=== PATIENT | male | born 1930 | race Caucasian/White ===

== ENCOUNTER 2018-01-23 19:25 | Inpatient (IN) | payer BC, MEDICARE ==
[2018-01-23] MEDS ORDERED: ACETAMINOPHEN TAB 325 MG TAB PO STA (19:35)
[2018-01-23] MEDS ORDERED: ACETAMINOPHEN IV (For NPO) 1,000 MG in EMPTY BAG 1 BAG IVPB ONE (19:45)
[2018-01-23 19:49] LABS: Basophils # (A) 0.1 k/uL (0-0.2); Basophils % (A) 0 %; Eosinophils # (A) 0.2 k/uL (0-0.7); Eosinophils % (A) 1 %; HCT 29.5 % (39.0-53.0); Lymphocytes # (A) 0.8 k/uL (1.0-4.8); Lymphocytes % (A) 5 %; MCH 31.1 pg (25.0-35.0); MCHC 33.9 g/dL (31.0-37.0); MCV 91.7 fL (80.0-100.0); Mean Platelet Volume 8.3; Monocytes # (A) 0.7 k/uL (0-1.0); Monocytes % (A) 4 %; Neutrophils # (A) 13.8 k/uL (1.3-7.7); Neutrophils % (A) 89 %; Platelet Count 266 k/uL (150-450); RBC 3.22 m/uL (4.30-5.90); RDW 15.9 % (11.5-15.5); WBC 15.5 k/uL (3.8-10.6)
--- NOTE | 2018-01-23 19:53 | ED ---
General Adult HPI - General Chief complaint: Weakness Stated complaint: weakness Time Seen by Provider: 01/23/18 19:35 Source: patient, EMS, RN notes reviewed Mode of arrival: ambulatory Limitations: no limitations - History of Present Illness Initial comments: 87 -year-old male presents for evaluation of nausea vomiting and generalized weakness. Patient states that throughout the day today he developed weakness and difficulty with ambulating secondary to his generalized weakness. He has had a cough over the past several days. He also reports 45 episodes of vomiting and dry heaving. No blood. No abdominal pain. Patient denies chest pain. Denies sore throat. He has had some rhinorrhea. No diarrhea. - Related Data Home Medications Medication Instructions Recorded Confirmed Ergocalciferol (Vitamin D2) 50,000 unit PO Q30D 08/27/16 08/27/16 [Drisdol] Insulin Aspart [NovoLOG See Protocol SQ ACHS 08/27/16 08/27/16 (formulary)] Vitamin E (Dl,Tocopheryl Acet) 400 unit PO DAILY 08/27/16 08/27/16 [Vitamin E] Zolpidem [Ambien] 5 mg PO HS PRN 08/27/16 08/27/16 rOPINIRole HCL [Requip] 0.25 mg PO HS 08/27/16 08/27/16 Previous Rx's Medication Instructions Recorded Acetaminophen Tab [Tylenol] 650 mg PO Q4HR PRN #0 tab 09/01/16 Albuterol Nebulized [Ventolin 2.5 mg INHALATION RT-QID PRN #0 09/01/16 Nebulized] nebu Apixaban [Eliquis] 2.5 mg PO BID #60 tablet 09/01/16 Aspirin 81 mg PO DAILY chew 09/01/16 Atenolol [Tenormin] 25 mg PO DAILY #30 tab 09/01/16 Atorvastatin [Lipitor] 40 mg PO DAILY tab 09/01/16 Insulin Glargine,Hum.rec.anlog 30 units SQ DAILY #1 insuln.pen 09/01/16 [Lantus Solostar] Nitroglycerin Sl Tabs [Nitrostat] 0.4 mg SUBLINGUAL Q5M PRN #0 tab 09/01/16 Allergies Allergy/AdvReac Type Severity Reaction Status Date / Time No Known Allergies Allergy Verified 08/27/16 14:34 Review of Systems ROS Statement: Those systems with pertinent positive or pertinent negative responses have been documented in the HPI. ROS Other: All systems not noted in ROS Statement are negative. Past Medical History Past Medical History: Diabetes Mellitus, Hypertension, Myocardial Infarction ([place] ), Renal Disease Last Myocardial Infarction Date:: unknown History of Any Multi-Drug Resistant Organisms: None Reported Additional Past Surgical History / Comment(s): Hip replacement. , Past Psychological History: No Psychological Hx Reported Smoking Status: Never smoker Past Alcohol Use History: None Reported Past Drug Use History: None Reported General Exam Limitations: no limitations General appearance: alert, in no apparent distress Head exam: Present: atraumatic, normocephalic Eye exam: Present: normal appearance ENT exam: Present: mucous membranes dry Neck exam: Present: normal inspection. Absent: tenderness, meningismus Respiratory exam: Present: rhonchi. Absent: respiratory distress Cardiovascular Exam: Present: regular rate, normal rhythm GI/Abdominal exam: Present: soft. Absent: distended, tenderness exam: Present: normal inspection. Absent: scrotal swelling Extremities exam: Present: normal inspection, normal capillary refill. Absent: pedal edema Neurological exam: Present: alert, oriented X3, CN II-XII intact. Absent: motor sensory deficit Psychiatric exam: Present: normal affect, normal mood Skin exam: Present: warm, dry, intact. Absent: cyanosis, diaphoretic Course Vital Signs 01/23/18 01/23/18 19:29 20:03 Temperature 102.1 F H Pulse Rate 85 80 Respiratory 18 18 Rate Blood Pressure 132/60 O2 Sat by Pulse 98 95 Oximetry EKG Findings - EKG Comments: EKG Findings:: Sinus rhythm with PAC, ventricular rate of 83, WI interval 150, QRS duration 78, QTC [address] segment elevation or depression Medical Decision Making - Medical Decision Making 87-year-old male with fever and weakness. Patient has had mild cough and several episodes of vomiting otherwise no complaints. No rash present on exam. No abdominal pain or tenderness. Normal Gen. exam. Chest x-ray negative for focal pneumonia. Urinalysis is clear. Influenza negative. Laboratory studies are consistent with infection or blood cell count elevated 15.5, hemoglobin 10 with no baseline for comparison. Creatinine 1.3. No source of fever or leukocytosis identified on physical exam or initial testing. Given the patient' s age and high fever with leukocytosis, her cultures and urine cultures are obtained. He will be given a dose of broad-spectrum antibiotics. There is concern for bacteremia or occult infection. Case discussed with Dr. Casas who will accept admission. - Lab Data Result diagrams: 01/23/18 19:34 01/23/18 19:34 Lab Results 01/23/18 01/23/18 01/23/18 Range/Units 19:34 19:34 19:34 WBC 15.5 H (3.8-10.6) k/uL RBC 3.22 L (4.30-5.90) m/uL Hgb 10.0 L (13.0-17.5) gm/dL Hct 29.5 L (39.0-53.0) % MCV 91.7 (80.0-100.0) fL MCH 31.1 (25.0-35.0) pg MCHC 33.9 (31.0-37.0) g/dL RDW 15.9 H (11.5-15.5) % Plt Count 266 (150-450) k/uL Neutrophils % 89 % Lymphocytes % 5 % Monocytes % 4 % Eosinophils % 1 % Basophils % 0 % Neutrophils # 13.8 H (1.3-7.7) k/uL Lymphocytes # 0.8 L (1.0-4.8) k/uL Monocytes # 0.7 (0-1.0) k/uL Eosinophils # 0.2 (0-0.7) k/uL Basophils # 0.1 (0-0.2) k/uL Sodium 144 (137-145) mmol/L Potassium 4.3 (3.5-5.1) mmol/L Chloride 113 H (98-107) mmol/L Carbon Dioxide 18 L (22-30) mmol/L Anion Gap 13 mmol/L BUN 57 H (9-20) mg/dL Creatinine 1.30 H (0.66-1.25) mg/dL Est GFR (CKD-EPI)AfAm 57 (>60 ml/min/1.73 sqM) Est GFR (CKD-EPI)NonAf 49 (>60 ml/min/1.73 sqM) Glucose 164 H (74-99) mg/dL Plasma Lactic Acid Maulik (0.7-2.0) mmol/L Calcium 8.9 (8.4-10.2) mg/dL Magnesium 1.9 (1.6-2.3) mg/dL Total Bilirubin 0.7 (0.2-1.3) mg/dL AST 24 (17-59) U/L ALT 30 (21-72) U/L Alkaline Phosphatase 68 (38-126) U/L Total Protein 6.1 L (6.3-8.2) g/dL Albumin 3.4 L (3.5-5.0) g/dL Urine Color Urine Appearance (Clear) Urine pH (5.0-8.0) Ur Specific [place] (1.001-1.035) Urine Protein (Negative) Urine Glucose (UA) (Negative) Urine Ketones (Negative) Urine Blood (Negative) Urine Nitrite (Negative) Urine Bilirubin (Negative) Urine Urobilinogen (<2.0) mg/dL Ur Leukocyte Esterase (Negative) Influenza Type A RNA Not Detected (Not Detectd) Influenza Type B (PCR) Not Detected (Not Detectd) 01/23/18 01/23/18 Range/Units 19:34 20:15 WBC (3.8-10.6) k/uL RBC (4.30-5.90) m/uL Hgb (13.0-17.5) gm/dL Hct (39.0-53.0) % MCV (80.0-100.0) fL MCH (25.0-35.0) pg MCHC (31.0-37.0) g/dL RDW (11.5-15.5) % Plt Count (150-450) k/uL Neutrophils % % Lymphocytes % % Monocytes % % Eosinophils % % Basophils % % Neutrophils # (1.3-7.7) k/uL Lymphocytes # (1.0-4.8) k/uL Monocytes # (0-1.0) k/uL Eosinophils # (0-0.7) k/uL Basophils # (0-0.2) k/uL Sodium (137-145) mmol/L Potassium (3.5-5.1) mmol/L Chloride (98-107) mmol/L Carbon Dioxide (22-30) mmol/L Anion Gap mmol/L BUN (9-20) mg/dL Creatinine (0.66-1.25) mg/dL Est GFR (CKD-EPI)AfAm (>60 ml/min/1.73 sqM) Est GFR (CKD-EPI)NonAf (>60 ml/min/1.73 sqM) Glucose (74-99) mg/dL Plasma Lactic Acid Maulik 1.3 (0.7-2.0) mmol/L Calcium (8.4-10.2) mg/dL Magnesium (1.6-2.3) mg/dL Total Bilirubin (0.2-1.3) mg/dL AST (17-59) U/L ALT (21-72) U/L Alkaline Phosphatase (38-126) U/L Total Protein (6.3-8.2) g/dL Albumin (3.5-5.0) g/dL Urine Color Light Yellow Urine Appearance Clear (Clear) Urine pH 5.0 (5.0-8.0) Ur Specific [place] 1.013 (1.001-1.035) Urine Protein Trace H (Negative) Urine Glucose (UA) Trace H (Negative) Urine Ketones Negative (Negative) Urine Blood Negative (Negative) Urine Nitrite Negative (Negative) Urine Bilirubin Negative (Negative) Urine Urobilinogen <2.0 (<2.0) mg/dL Ur Leukocyte Esterase Negative (Negative) Influenza Type A RNA (Not Detectd) Influenza Type B (PCR) (Not Detectd) Disposition Clinical Impression: Fever, Leukocytosis Disposition: ADMITTED IP TO THIS HOSP Condition: Stable Is patient prescribed a controlled substance at d/c from ED?: No Referrals: Jaguar Casas MD [Primary Care Provider] - 1-2 days Time of Disposition: 21:08
[2018-01-23 19:59] LABS: Albumin 3.4 g/dL (3.5-5.0); Calcium 8.9 mg/dL (8.4-10.2); Magnesium 1.9 mg/dL (1.6-2.3); Potassium 4.3 mmol/L (3.5-5.1); Total Bilirubin 0.7 mg/dL (0.2-1.3); Total Protein 6.1 g/dL (6.3-8.2)
--- NOTE | 2018-01-23 20:02 | XR ---
EXAMINATION: XR chest 2V DATE AND TIME: 01/23/2018 7:57 PM ORDERING PROVIDER: Wagner Reddy MD CLINICAL INDICATION: fever TECHNIQUE: PA and lateral COMPARISON: 08/31/2016 DESCRIPTION: Lateral view shows a band of added opacity posteriorly but this is likely atelectasis as the hemidiap hragms are elevated at the moment of x-ray exposure on the frontal and lateral radiographs. The media stinal and pleural silhouettes are unremarkable. Therefore, the lungs are clear. The pleural spaces are negative. The cardiac silhouette is not enlarged. The skeletal structures are intact without focal findings. The soft tissues are unremarkable. IMPRESSION: NO ACUTE PROCESS.
[2018-01-23 20:22] LABS: Appearance,Urine Clear (Clear); Bilirubin,Urine Negative (Negative); Blood,Urine Negative (Negative); Color,Urine Light Yellow; Glucose,Urine (UA) Trace (Negative); Ketones,Urine Negative (Negative); Leukocyte Esterase,Urine Negative (Negative); Nitrite,Urine Negative (Negative); Protein,Urine Trace (Negative); Specific Gravity,Urine 1.013 (1.001-1.035); Urobilinogen,Urine <2.0 mg/dL (<2.0)
[2018-01-23] MEDS ORDERED: SODIUM CHLORIDE 0.9% 500 ML IV ONE (20:33)
[2018-01-23] MEDS ORDERED: cefTRIAXone IN SWFI 1,000 MG/10 ML SYRINGE IVP STA (20:58)
[2018-01-23] MEDS ORDERED: VANCOMYCIN IV PER PHARMACY 1 EACH MISC MISCELLANE PRN (20:58)
[2018-01-23] MEDS ORDERED: ACETAMINOPHEN TAB 325 MG TAB PO PRN (21:01)
[2018-01-23] MEDS ORDERED: NALOXONE 0.4 MG/ML 1 ML VIAL IV PRN (21:01)
[2018-01-23] MEDS ORDERED: VANCOMYCIN 1,250 MG in SODIUM CHLORIDE 0.9% 250 ML IVPB STA (21:08)
[2018-01-24] MEDS: SODIUM CHLORIDE 0.9% 1,000 ML IV SCH ×2 (00:14→14:34)
[2018-01-24 06:09] LABS: Basophils # (A) 0.1 k/uL (0-0.2); Basophils % (A) 0 %; Eosinophils # (A) 0.1 k/uL (0-0.7); Eosinophils % (A) 1 %; HCT 28.7 % (39.0-53.0); HGB 9.5 gm/dL (13.0-17.5); Lymphocytes % (A) 14 %; MCH 31.2 pg (25.0-35.0); MCHC 33.2 g/dL (31.0-37.0); MCV 93.9 fL (80.0-100.0); Mean Platelet Volume 7.9; Monocytes # (A) 0.8 k/uL (0-1.0); Monocytes % (A) 5 %; Neutrophils # (A) 11.6 k/uL (1.3-7.7); Neutrophils % (A) 79 %; Platelet Count 253 k/uL (150-450); RBC 3.06 m/uL (4.30-5.90); RDW 15.9 % (11.5-15.5); WBC 14.7 k/uL (3.8-10.6)
[2018-01-24 06:33] LABS: Albumin 3.1 g/dL (3.5-5.0); Calcium 8.3 mg/dL (8.4-10.2); Potassium 4.5 mmol/L (3.5-5.1); Total Bilirubin 0.7 mg/dL (0.2-1.3); Total Protein 5.7 g/dL (6.3-8.2)
[2018-01-24] MEDS ORDERED: IOPAMIDOL-300 CONTRAST 30 ML VIAL (ORAL USE) PO PRN (08:30)
[2018-01-24] MEDS ORDERED: RX INFO: IV CONTRAST WAS GIVEN 1 EACH MISC MISCELLANE PRN (08:30)
--- NOTE | 2018-01-24 08:44 | P.CONS ---
History of Present Illness - Reason for Consult Consult date: 01/24/18 Fever, leukocytosis - History of Present Illness This is an 87-year-old male patient who gives history that yesterday he got up in the morning was feeling fine. He he ate his usual cream of wheat in the morning and took his pills. He checked his blood sugar was checked was 99 and laid down on the couch. Later he attempted to get up off the couch and he couldn't. He states he had increased weakness and was unable to get up to the bathroom. He was trying to pull himself and that did not help. He tried to call his children but no one was home and eventually later in the day, his son came over and helped him up. He had vomiting 1 episode. He denies any diarrhea, abdominal pain. He has a cough that is present for years with no change. He denies any dysuria. He denies any wounds or rashes. He has chronic pain to his right hip with numbness down the anterior thigh which is unchanged. He also complains of chronic pain in bilateral shoulders and left hand which is unchanged. His son called an ambulance and he was transported into [facility] emergency center for evaluation. He was found to have a temperature 102.1 and leukocytosis of 15.5. Influenza testing was negative. BUN 57 creatinine 1.3 with improvement to 46 and 1.12. White count is also improved to 14.7. Urinalysis was clear with nitrate and leukoesterase negative. Urine culture and blood culture were obtained. Chest x-ray showed no acute process. Patient was started on Rocephin and vancomycin and is slotted to be admitted to the Medr floor awaiting a bed in the emergency center. Patient has a regular diet ordered but he states he has not had anything to eat since he arrived. Review of Systems All systems: negative Constitutional: Reports fatigue, Reports lethargy, Reports malaise, Reports weakness, Denies anorexia, Denies chills, Denies fever, Denies poor appetite Eyes: denies blurred vision, denies pain Ears, nose, mouth and throat: Denies headache, Denies sore throat Cardiovascular: Denies chest pain, Denies shortness of breath Respiratory: Denies cough Gastrointestinal: Reports vomiting, Denies abdominal pain, Denies diarrhea, Denies nausea Genitourinary: Denies dysuria, Denies urinary frequency Musculoskeletal: Denies myalgias Integumentary: Denies pruritus, Denies rash Neurological: Denies numbness, Denies weakness Psychiatric: Denies anxiety, Denies depression Endocrine: Denies fatigue, Denies weight change Past Medical History Past Medical History: Diabetes Mellitus, Hypertension, Myocardial Infarction ([place] ), Renal Disease Last Myocardial Infarction Date:: unknown History of Any Multi-Drug Resistant Organisms: None Reported Additional Past Surgical History / Comment(s): [place] [address] Turpin, bilateral cataract removal and intraocular lens implants. Past Psychological History: No Psychological Hx Reported Smoking Status: Never smoker Past Alcohol Use History: None Reported Additional Past Alcohol Use History / Comment(s): Patient is a lifelong nonsmoker. No illicit drug use, alcohol abuse. He lives at home by himself. His son lives next door and helps with transportation and grocery shopping. Patient is retired from [employer]. He was in the [employer] stationed in the . Past Drug Use History: None Reported - Past Family History Father Family Medical History: COPD Mother Family Medical History: No Reported History Medications and Allergies Home Medications Medication Instructions Recorded Confirmed Type Vitamin E (Dl,Tocopheryl Acet) 400 unit PO DAILY 08/27/16 01/24/18 History [Vitamin E] rOPINIRole HCL [Requip] 0.25 mg PO HS 08/27/16 01/24/18 History Albuterol Nebulized [Ventolin 2.5 mg INHALATION RT-QID PRN #0 09/01/16 01/24/18 Rx Nebulized] nebu Apixaban [Eliquis] 2.5 mg PO BID #60 tablet 09/01/16 01/24/18 Rx Aspirin 81 mg PO DAILY chew 09/01/16 01/24/18 Rx Atenolol [Tenormin] 25 mg PO DAILY #30 tab 09/01/16 01/24/18 Rx Atorvastatin [Lipitor] 40 mg PO DAILY tab 09/01/16 01/24/18 Rx Nitroglycerin Sl Tabs [Nitrostat] 0.4 mg SUBLINGUAL Q5M PRN #0 tab 09/01/1612/09 Rx Acetaminophen Tab [Tylenol] 500 mg PO Q4H PRN 01/24/18 01/24/18 History Cholecalciferol [Vitamin D3] 1,000 unit PO DAILY 01/24/18 01/24/18 History Ferrous Sulfate [Iron (65 MG 325 mg PO BID 01/24/18 01/24/18 History Elemental)] Folic Acid 0.8 mg PO DAILY 01/24/18 01/24/18 History amLODIPine [Norvasc] 5 mg PO DAILY 01/24/18 01/24/18 History Cephalexin [Keflex] 250 mg PO QID #30 cap 01/28/18 Rx Insulin Aspart [NovoLOG 4 unit SQ AC-TID #1 vial 01/28/18 Rx (formulary)] Insulin Detemir [Levemir] 10 unit SQ HS #30 syr 01/28/18 Rx Omeprazole [PriLOSEC] 20 mg PO AC-BID #1 cap 01/29/18 Rx Sucralfate [Carafate] 1 gm PO ACHS tab 01/29/18 Rx Allergies Allergy/AdvReac Type Severity Reaction Status Date / Time No Known Allergies Allergy Verified 01/23/18 21:16 Physical Exam Vitals: Vital Signs Temp Pulse Resp BP Pulse Ox 01/24/18 06:05 97.2 F L 56 L 16 179/74 98 01/24/18 03:38 96.9 F L 58 L 16 131/60 99 01/24/18 02:35 58 L 16 127/63 98 01/24/18 00:40 63 16 113/57 97 01/23/18 23:30 97.5 F L 68 14 124/56 97 01/23/18 21:12 98.2 F 73 18 115/72 98 01/23/18 20:03 80 18 132/60 95 01/23/18 19:29 102.1 F H 85 18 98 Intake and Output 01/23/18 01/24/18 01/24/18 22:59 06:59 14:59 Other: Weight 72.575 kg Gen: This is an 87-year-old male patient seen in the ER. He is on the stretcher sitting up and appears to be comfortable and in no acute distress. HEENT: Head is atraumatic, normocephalic. Pupils equal, round. Sclerae is anicteric. Conjunctiva pink. Mucous membranes of the mouth are moist. Dentition is in fair order for his age. He is missing some teeth and the bottom front. NECK: Supple. No JVD. No lymphadenopathy. No thyromegaly. LUNGS: Clear to auscultation. No wheezes or rhonchi. No intercostal retractions. HEART: Regular rate and rhythm. No murmur. ABDOMEN: Soft. Bowel sounds are present. No masses. No tenderness. EXTREMITIES: No pedal edema. No calf tenderness. Dorsalis pedis +2 bilaterally. NEUROLOGICAL: Patient is awake, alert and oriented x3. Cranial nerves 2 through 12 are grossly intact. Results Results: Laboratory Results WBC 14.7 k/uL (3.8-10.6) H 01/24/18 05:44 RBC 3.06 m/uL (4.30-5.90) L 01/24/18 05:44 Hgb 9.5 gm/dL (13.0-17.5) L 01/24/18 05:44 Hct 28.7 % (39.0-53.0) L 01/24/18 05:44 MCV 93.9 fL (80.0-100.0) 01/24/18 05:44 MCH 31.2 pg (25.0-35.0) 01/24/18 05:44 MCHC 33.2 g/dL (31.0-37.0) 01/24/18 05:44 RDW 15.9 % (11.5-15.5) H 01/24/18 05:44 Plt Count 253 k/uL (150-450) 01/24/18 05:44 Neutrophils % 79 % 01/24/18 05:44 Lymphocytes % 14 % 01/24/18 05:44 Monocytes % 5 % 01/24/18 05:44 Eosinophils % 1 % 01/24/18 05:44 Basophils % 0 % 01/24/18 05:44 Neutrophils # 11.6 k/uL (1.3-7.7) H 01/24/18 05:44 Lymphocytes # 2.0 k/uL (1.0-4.8) 01/24/18 05:44 Monocytes # 0.8 k/uL (0-1.0) 01/24/18 05:44 Eosinophils # 0.1 k/uL (0-0.7) 01/24/18 05:44 Basophils # 0.1 k/uL (0-0.2) 01/24/18 05:44 Sodium 145 mmol/L (137-145) 01/24/18 05:44 Potassium 4.5 mmol/L (3.5-5.1) 01/24/18 05:44 Chloride 114 mmol/L (98-107) H 01/24/18 05:44 Carbon Dioxide 20 mmol/L (22-30) L 01/24/18 05:44 Anion Gap 11 mmol/L 01/24/18 05:44 BUN 46 mg/dL (9-20) H 01/24/18 05:44 Creatinine 1.12 mg/dL (0.66-1.25) 01/24/18 05:44 Est GFR (CKD-EPI)AfAm 68 (>60 ml/min/1.73 sqM) 01/24/18 05:44 Est GFR (CKD-EPI)NonAf 59 (>60 ml/min/1.73 sqM) 01/24/18 05:44 Glucose 141 mg/dL (74-99) H 01/24/18 05:44 Plasma Lactic Acid Maulik 1.3 mmol/L (0.7-2.0) 01/23/18 19:34 Calcium 8.3 mg/dL (8.4-10.2) L 01/24/18 05:44 Magnesium 1.9 mg/dL (1.6-2.3) 01/23/18 19:34 Total Bilirubin 0.7 mg/dL (0.2-1.3) 01/24/18 05:44 AST 22 U/L (17-59) 01/24/18 05:44 ALT 27 U/L (21-72) 01/24/18 05:44 Alkaline Phosphatase 60 U/L (38-126) 01/24/18 05:44 Total Protein 5.7 g/dL (6.3-8.2) L 01/24/18 05:44 Albumin 3.1 g/dL (3.5-5.0) L 01/24/18 05:44 Urine Color Light Yellow 01/23/18 20:15 Urine Appearance Clear (Clear) 01/23/18 20:15 Urine pH 5.0 (5.0-8.0) 01/23/18 20:15 Ur Specific [place] 1.013 (1.001-1.035) 01/23/18 20:15 Urine Protein Trace (Negative) H 01/23/18 20:15 Urine Glucose (UA) Trace (Negative) H 01/23/18 20:15 Urine Ketones Negative (Negative) 01/23/18 20:15 Urine Blood Negative (Negative) 01/23/18 20:15 Urine Nitrite Negative (Negative) 01/23/18 20:15 Urine Bilirubin Negative (Negative) 01/23/18 20:15 Urine Urobilinogen <2.0 mg/dL (<2.0) 01/23/18 20:15 Ur Leukocyte Esterase Negative (Negative) 01/23/18 20:15 Influenza Type A RNA Not Detected (Not Detectd) 01/23/18 19:34 Influenza Type B (PCR) Not Detected (Not Detectd) 01/23/18 19:34 CBC & Chem 7: 01/24/18 05:44 01/29/18 07:42 Labs: Abnormal Lab Results - Last 24 Hours (Table) 01/23/18 01/23/18 01/23/18 Range/Units 19:34 19:34 20:15 WBC 15.5 H (3.8-10.6) k/uL RBC 3.22 L (4.30-5.90) m/uL Hgb 10.0 L (13.0-17.5) gm/dL Hct 29.5 L (39.0-53.0) % RDW 15.9 H (11.5-15.5) % Neutrophils # 13.8 H (1.3-7.7) k/uL Lymphocytes # 0.8 L (1.0-4.8) k/uL Chloride 113 H (98-107) mmol/L Carbon Dioxide 18 L (22-30) mmol/L BUN 57 H (9-20) mg/dL Creatinine 1.30 H (0.66-1.25) mg/dL Glucose 164 H (74-99) mg/dL Calcium (8.4-10.2) mg/dL Total Protein 6.1 L (6.3-8.2) g/dL Albumin 3.4 L (3.5-5.0) g/dL Urine Protein Trace H (Negative) Urine Glucose (UA) Trace H (Negative) 01/24/18 01/24/18 Range/Units 05:44 05:44 WBC 14.7 H (3.8-10.6) k/uL RBC 3.06 L (4.30-5.90) m/uL Hgb 9.5 L (13.0-17.5) gm/dL Hct 28.7 L (39.0-53.0) % RDW 15.9 H (11.5-15.5) % Neutrophils # 11.6 H (1.3-7.7) k/uL Lymphocytes # (1.0-4.8) k/uL Chloride 114 H (98-107) mmol/L Carbon Dioxide 20 L (22-30) mmol/L BUN 46 H (9-20) mg/dL Creatinine (0.66-1.25) mg/dL Glucose 141 H (74-99) mg/dL Calcium 8.3 L (8.4-10.2) mg/dL Total Protein 5.7 L (6.3-8.2) g/dL Albumin 3.1 L (3.5-5.0) g/dL Urine Protein (Negative) Urine Glucose (UA) (Negative) Microbiology - Last 24 Hours (Table) 01/23/18 20:15 Urine Culture - Preliminary Urine,Voided Assessment and Plan Plan: This is an 87-year-old male who presented with signs of sepsis of fever and leukocytosis with generalized weakness and one episode of vomiting of unclear etiology. Thus far testing for influenza, chest x-ray have been normal. He does have a blood culture in process. Patient is currently on Rocephin and vancomycin. Vancomycin will be discontinued. CAT scan of the abdomen and pelvis with contrast will be ordered. Physical therapy and occupational therapy consults added to evaluate patient's weakness. Continue supportive care. Further recommendations as patient progresses. The above dictated assessment and findings were discussed with Dr. Salmon. The impression and plan of care have been directed as dictated. Jamia Downing nurse practitioner acting as scribe for Dr. Salmon.
--- NOTE | 2018-01-24 10:53 | CT ---
EXAMINATION TYPE: CT abdomen pelvis w con DATE OF EXAM: 01/24/2018 COMPARISON: NONE HISTORY: Fever, leukocystosis, nausea and vomiting CT DLP: 1523 mGycm Automated exposure control for dose reduction was used. CONTRAST: CT scan of the abdomen pelvis is performed with IV Contrast, patient injected with 80 mL of Isovue 30 0. FINDINGS- LUNG BASES-subsegmental atelectasis at both lung bases. Coronary artery calcification noted. LIVER/GB- No gross abnormality is appreciated. Gallbladder mildly prominent in size but no wall thi ckening or gallstones. No biliary dilation. PANCREAS- No gross abnormality is seen. SPLEEN- No gross abnormality is seen. ADRENALS- No gross abnormality is seen. KIDNEYS/BLADDER- no hydronephrosis or nephrolithiasis. Simple appearing bilateral renal cysts. BOWEL-bowel gas pattern nonspecific. There is a hiatal hernia mild wall thickening of the distal esop hagus and GE junction. Correlate for esophagitis and exclude mucosal lesion. No diagnostic evidence o f bowel obstruction.. LYMPH NODES- No greater than 1cm abdominal or pelvic lymph nodes are appreciated. OSSEOUS STRUCTURES-severe degenerative disc disease at multiple levels. Postsurgical change involving the right hip and arthropathy of the left hip. Disc bulging at multiple levels suggest multilevel ca nal stenosis. OTHER- bladder wall thickening compatible with cystitis. Atherosclerotic change aorta. Nonspecific s oft tissue attenuation adjacent to the left hip correlate clinically. IMPRESSION- 1. Hiatal hernia with esophageal wall thickening correlate clinically for esophagitis. 2. There is soft tissue fullness adjacent the left hip which is nonspecific and should be correlated for inflammatory condition or scar. Correlate clinically. 3. Correlate for cystitis #4 subsegmental changes at both lung bases favor atelectasis over pneumonia . Correlate clinically for confirmation.
[2018-01-24] MEDS ORDERED: ALBUTEROL NEBULIZED 2.5 MG/3 ML INHALATION PRN (11:36)
[2018-01-24] MEDS: cefTRIAXone IN SWFI 1,000 MG/10 ML SYRINGE IVP SCH (14:34)
--- NOTE | 2018-01-24 17:46 | HP ---
HISTORY AND PHYSICAL CHIEF COMPLAINT: Weakness, malaise, nausea and vomiting and generalized weakness. HISTORY OF PRESENT ILLNESS: This is another admission for this 87-year-old white male. He suddenly noticed that he was feeling weak and lightheaded and started to have nausea and vomiting. He had no diarrhea. He had no hematemesis, abdominal pain, melena, hematochezia, etc. He came to the emergency room, where he had a white count of around 15,000 and his temperature was 103. Chest x-ray was clear as well as his urine. He was admitted to the hospital with the diagnosis of FUO, source unknown. REVIEW OF SYSTEMS: He denies any headaches, change in vision or hearing, nasal congestion, pharyngitis, cough, hemoptysis, sputum production, shortness of breath, chest pain, orthopnea, PND, abdominal pain, jaundice, melena, hematochezia, arthralgias, etc. He has diabetes and it has been fairly well controlled. He also has a history of atrial fibrillation. Past medical history, family history, and personal and social histories reveal that HE CANNOT TAKE STATINS. He does not smoke or drink. Medications can be found in his MAR. PHYSICAL EXAMINATION: Blood pressure is 106/55 with a pulse of 97, respirations of 33 and temperature of 103. In general he appeared to be slightly dehydrated, but he was awake and alert. Head, ears, eyes, nose, mouth and throat were normal except for dry mucous membranes. Neck was supple. There were no neck masses. Chest was clear to auscultation and percussion. Cardiac exam demonstrated sinus tachycardia. ABDOMEN: Soft and non-tender. No masses or visceromegaly. Extremities were normal. Neurologically he was intact. IMPRESSION: 1. Fever of unknown origin. 2. Leukocytosis. 3. Diabetes mellitus. 4. Chronic lumbar spine arthritis. PLAN: 1. Bed rest. 2. IV fluids. 3. Appropriate cultures. 4. IV antibiotics. 5. Infectious disease consult. MMODL / IJN: [id number] /
[2018-01-24] MEDS ORDERED: INSULIN DETEMIR 100 UNIT/ML 10 ML VIAL SQ SCH (21:00)
[2018-01-24] MEDS ORDERED: VANCOMYCIN 1,250 MG in SODIUM CHLORIDE 0.9% 250 ML IVPB SCH (21:00)
[2018-01-24] MEDS: APIXABAN 2.5 MG TABLET PO SCH (21:06)
[2018-01-24] MEDS: FERROUS SULFATE 325 MG TAB PO SCH (21:06)
[2018-01-24] MEDS: glipiZIDE 5 MG TAB PO SCH (21:06)
[2018-01-24 21:12] LABS: Glucose,Whole Blood 200 mg/dL (75-99)
--- NOTE | 2018-01-25 00:02 | P.CON ---
Consult Note - . Consult date: 01/24/18 Assessment/Plan:: This is an 87-year-old male patient who gives history that yesterday he got up in the morning was feeling fine. He he ate his usual cream of wheat in the morning and took his pills. He checked his blood sugar was checked was 99 and laid down on the couch. Later he attempted to get up off the couch and he couldn't. He states he had increased weakness and was unable to get up to the bathroom. He was trying to pull himself and that did not help. He tried to call his children but no one was home and eventually later in the day, his son came over and helped him up. He had vomiting 1 episode. He denies any diarrhea, abdominal pain. He has a cough that is present for years with no change. He denies any dysuria. He denies any wounds or rashes. He has chronic pain to his right hip with numbness down the anterior thigh which is unchanged. He also complains of chronic pain in bilateral shoulders and left hand which is unchanged. His son called an ambulance and he was transported into [facility] emergency center for evaluation. He was found to have a temperature 102.1 and leukocytosis of 15.5. Influenza testing was negative. BUN 57 creatinine 1.3 with improvement to 46 and 1.12. White count is also improved to 14.7. Urinalysis was clear with nitrate and leukoesterase negative. Urine culture and blood culture were obtained. Chest x-ray showed no acute process. Patient was started on Rocephin and vancomycin and is slotted to be admitted to the [facility] floor awaiting a bed in the emergency center. Patient has a regular diet ordered but he states he has not had anything to eat since he arrived. Please see the consult note as dictated by nurse practitioner Mrs. Jamia Downing. Patient relates that he feels better now that his fever has broken. He is having no further chills. Does feel poorly. Is having some pain to his shoulders. This is not new but bothersome and he developed his fever and leukocytosis. His sensitivity and point tenderness over the left lateral surface of the hip without much erythema or warmth. 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 Antimicrobial therapy with Rocephin given for now with concerns to skin soft tissue infection potentially over that left hip area, is a [place] hip. Sed rate CRP and uric acid levels will be obtained. Cultures are process which will further help direct his antimicrobial therapy. I agree with evaluation, assessment and plan is to keep her nurse practitioner Mrs. Jamia Downing.
[2018-01-25] MEDS: ACETAMINOPHEN TAB 500 MG TAB PO PRN (02:40)
[2018-01-25] MEDS: cefTRIAXone IN SWFI 1,000 MG/10 ML SYRINGE IVP SCH (08:52)
[2018-01-25] MEDS: ATORVASTATIN 40 MG TAB PO SCH (08:57)
[2018-01-25] MEDS: amLODIPine 5 MG TAB PO SCH (08:57)
[2018-01-25] MEDS: ASPIRIN 81 MG PO SCH (08:57)
[2018-01-25] MEDS: FERROUS SULFATE 325 MG TAB PO SCH ×2 (08:57→21:47)
[2018-01-25] MEDS: ATENOLOL 25 MG TAB PO SCH (08:57)
[2018-01-25] MEDS: APIXABAN 2.5 MG TABLET PO SCH ×2 (08:57→21:47)
[2018-01-25] MEDS: FOLIC ACID 1 MG TAB PO SCH (08:58)
[2018-01-25] MEDS: glipiZIDE 5 MG TAB PO SCH (08:58)
[2018-01-25 09:07] LABS: Calcium 8.3 mg/dL (8.4-10.2); Potassium 4.1 mmol/L (3.5-5.1)
[2018-01-25 09:24] LABS: Glucose,Whole Blood 67 mg/dL (75-99)
[2018-01-25 10:16] LABS: Glucose,Whole Blood 67 mg/dL (75-99)
--- NOTE | 2018-01-25 10:43 | FL ---
EXAMINATION TYPE: FL barium swallow w video DATE OF EXAM: 01/25/2018 MODIFIED SWALLOW / DEGLUTITION STUDY CLINICAL HISTORY: Dysphagia. Rule out aspiration. TECHNIQUE: Deglutition study is performed utilizing thin liquid barium, honey and nectar thick liqui d barium, barium thick applesauce, and barium coated cracker. A total of 4 minutes 1 second of fluoro scopic time was utilized during procedure. COMPARISON: Prior swallow study report August 31, 2016.. FINDINGS: The oral and pharyngeal phases show satisfactory initiation with all modalities tested. Th ere is poor propagation with poor epiglottis inversion. Satisfactory mastication is seen with solid m odalities tested. There is deep penetration with thin as well as honey and nectar thick barium. The re is improvement with chin type procedure. No yifan aspiration is seen. Moderate to severe pharyngea l residuals are appreciated most prominent at level of the piriform sinus. Incidental note is made of small narrow neck posterior diverticulum. IMPRESSION: Penetration without aspiration. Poor pharyngeal phase with moderate to severe pharyngeal residuals. Please refer to speech therapist notes for further details if necessary.
[2018-01-25 10:58] LABS: Glucose,Whole Blood 65 mg/dL (75-99)
[2018-01-25 10:58] LABS: Glucose,Whole Blood 67 mg/dL (75-99)
[2018-01-25 11:33] LABS: Glucose,Whole Blood 74 mg/dL (75-99)
[2018-01-25] MEDS: SODIUM CHLORIDE 0.9% 1,000 ML IV SCH ×2 (11:40)
[2018-01-25] MEDS: CHOLECALCIFEROL 1,000 UNIT TAB PO SCH (11:40)
[2018-01-25 12:40] LABS: Glucose,Whole Blood 99 mg/dL (75-99)
[2018-01-25 17:32] LABS: Glucose,Whole Blood 49 mg/dL (75-99)
--- NOTE | 2018-01-25 17:44 | PN ---
PROGRESS NOTE CHIEF COMPLAINT: Urinary tract infection. HISTORY OF PRESENT ILLNESS: This gentleman is doing a lot better. Temperature has been down. He feels a bit stronger. He has had no pain, shortness of breath, abdominal discomfort, etc. He does complain of having some choking when he swallows and this has been going on for a while. He is to get a swallow evaluation today. PHYSICAL EXAM: CHEST: Clear. Cardiac exam is normal. Abdomen is soft, nontender. IMPRESSION: 1. Urinary tract infection. 2. Dehydration. 3. History of diabetes. 4. Choking. PLAN: 1. PT, OT and ST. 2. Swallow evaluation. 3. Continue with IV fluids and antibiotics. MMODL / IJN: [id number] /
[2018-01-25 18:16] LABS: Glucose,Whole Blood 52 mg/dL (75-99)
[2018-01-25 18:22] LABS: Glucose,Whole Blood 107 mg/dL (75-99)
[2018-01-25 21:27] LABS: Glucose,Whole Blood 185 mg/dL (75-99)
--- NOTE | 2018-01-26 00:40 | P.PN ---
Subjective Progress Note Date: 01/25/18 This is an 87-year-old male patient who gives history that yesterday he got up in the morning was feeling fine. He he ate his usual cream of wheat in the morning and took his pills. He checked his blood sugar was checked was 99 and laid down on the couch. Later he attempted to get up off the couch and he couldn't. He states he had increased weakness and was unable to get up to the bathroom. He was trying to pull himself and that did not help. He tried to call his children but no one was home and eventually later in the day, his son came over and helped him up. He had vomiting 1 episode. He denies any diarrhea, abdominal pain. He has a cough that is present for years with no change. He denies any dysuria. He denies any wounds or rashes. He has chronic pain to his right hip with numbness down the anterior thigh which is unchanged. He also complains of chronic pain in bilateral shoulders and left hand which is unchanged. His son called an ambulance and he was transported into [facility] emergency center for evaluation. He was found to have a temperature 102.1 and leukocytosis of 15.5. Influenza testing was negative. BUN 57 creatinine 1.3 with improvement to 46 and 1.12. White count is also improved to 14.7. Urinalysis was clear with nitrate and leukoesterase negative. Urine culture and blood culture were obtained. Chest x-ray showed no acute process. Patient was started on Rocephin and vancomycin and is slotted to be admitted to the [facility] floor awaiting a bed in the emergency center. Patient has a regular diet ordered but he states he has not had anything to eat since he arrived. 01/25/2018 he continues to feel poorly. Swallowing study was performed today revealing evidence of difficulties and needs to be sitting upright with chin tuck when he swallows. Concerns to some aspiration. Patient is weak and understands need for going to rehab. Temperature is improved. Continues to have pain over the left hip and bilateral shoulders, does not appear to be extremely new. Objective - Vital Signs Vital signs: Vital Signs Temp 98.1 F 01/25/18 15:00 Pulse 71 01/25/18 15:00 Resp 16 05/04/18 15:00 BP 148/66 01/25/18 15:00 Pulse Ox 97 01/25/18 15:00 Intake & Output 01/25/18 01/25/18 01/26/18 06:59 18:59 06:59 Output Total 250 Balance -250 Weight 78 kg 78 kg Output: Urine 250 Other: Voiding Method Urinal # Voids 3 4 # Bowel Movements 4 - Exam Gen: This is an 87-year-old male patient seen in the ER. He is on the stretcher sitting up and appears to be comfortable and in no acute distress. HEENT: Head is atraumatic, normocephalic. Pupils equal, round. Sclerae is anicteric. Conjunctiva pink. Mucous membranes of the mouth are moist. Dentition is in fair order for his age. He is missing some teeth and the bottom front. NECK: Supple. No JVD. No lymphadenopathy. No thyromegaly. LUNGS: Clear to auscultation. No wheezes or rhonchi. No intercostal retractions. HEART: Regular rate and rhythm. No murmur. ABDOMEN: Soft. Bowel sounds are present. No masses. No tenderness. EXTREMITIES: No pedal edema. No calf tenderness. Dorsalis pedis +2 bilaterally. NEUROLOGICAL: Patient is awake, alert and oriented x3. - Labs CBC & Chem 7: 01/24/18 05:44 01/25/18 08:26 Labs: Abnormal Lab Results - Last 24 Hours (Table) 01/25/18 01/25/18 01/25/18 Range/Units 08:26 09:19 09:55 Chloride 112 H (98-107) mmol/L Carbon Dioxide 19 L (22-30) mmol/L BUN 29 H (9-20) mg/dL Glucose 35 L* (74-99) mg/dL POC Glucose (mg/dL) 67 L 67 L (75-99) mg/dL Calcium 8.3 L (8.4-10.2) mg/dL 01/25/18 01/25/18 01/25/18 Range/Units 10:35 10:53 11:26 Chloride (98-107) mmol/L Carbon Dioxide (22-30) mmol/L BUN (9-20) mg/dL Glucose (74-99) mg/dL POC Glucose (mg/dL) 67 L 65 L 74 L (75-99) mg/dL Calcium (8.4-10.2) mg/dL 01/25/18 01/25/18 01/25/18 Range/Units 17:20 17:55 18:17 Chloride (98-107) mmol/L Carbon Dioxide (22-30) mmol/L BUN (9-20) mg/dL Glucose (74-99) mg/dL POC Glucose (mg/dL) 49 L 52 L 107 H (75-99) mg/dL Calcium (8.4-10.2) mg/dL 01/25/18 Range/Units 21:14 Chloride (98-107) mmol/L Carbon Dioxide (22-30) mmol/L BUN (9-20) mg/dL Glucose (74-99) mg/dL POC Glucose (mg/dL) 185 H (75-99) mg/dL Calcium (8.4-10.2) mg/dL Microbiology - Last 24 Hours (Table) 01/23/18 19:34 Blood Culture - Preliminary Blood No Growth after 48 hours Laboratory Results WBC 14.7 k/uL (3.8-10.6) H 01/24/18 05:44 RBC 3.06 m/uL (4.30-5.90) L 01/24/18 05:44 Hgb 9.5 gm/dL (13.0-17.5) L 01/24/18 05:44 Hct 28.7 % (39.0-53.0) L 01/24/18 05:44 MCV 93.9 fL (80.0-100.0) 01/24/18 05:44 MCH 31.2 pg (25.0-35.0) 01/24/18 05:44 MCHC 33.2 g/dL (31.0-37.0) 01/24/18 05:44 RDW 15.9 % (11.5-15.5) H 01/24/18 05:44 Plt Count 253 k/uL (150-450) 01/24/18 05:44 Neutrophils % 79 % 01/24/18 05:44 Lymphocytes % 14 % 01/24/18 05:44 Monocytes % 5 % 01/24/18 05:44 Eosinophils % 1 % 01/24/18 05:44 Basophils % 0 % 01/24/18 05:44 Neutrophils # 11.6 k/uL (1.3-7.7) H 01/24/18 05:44 Lymphocytes # 2.0 k/uL (1.0-4.8) 01/24/18 05:44 Monocytes # 0.8 k/uL (0-1.0) 01/24/18 05:44 Eosinophils # 0.1 k/uL (0-0.7) 01/24/18 05:44 Basophils # 0.1 k/uL (0-0.2) 01/24/18 05:44 Sodium 143 mmol/L (137-145) 01/25/18 08:26 Potassium 4.1 mmol/L (3.5-5.1) 01/25/18 08:26 Chloride 112 mmol/L (98-107) H 01/25/18 08:26 Carbon Dioxide 19 mmol/L (22-30) L 01/25/18 08:26 Anion Gap 12 mmol/L 01/25/18 08:26 BUN 29 mg/dL (9-20) H 01/25/18 08:26 Creatinine 0.98 mg/dL (0.66-1.25) 01/25/18 08:26 Est GFR (CKD-EPI)AfAm 80 (>60 ml/min/1.73 sqM) 01/25/18 08:26 Est GFR (CKD-EPI)NonAf 69 (>60 ml/min/1.73 sqM) 01/25/18 08:26 Glucose 35 mg/dL (74-99) L* 01/25/18 08:26 POC Glucose (mg/dL) 185 mg/dL (75-99) H 01/25/18 21:14 POC Glu Mushroom Picker SANIA Ronna Leggett 01/25/18 21:14 Plasma Lactic Acid Maulik 1.3 mmol/L (0.7-2.0) 01/23/18 19:34 Calcium 8.3 mg/dL (8.4-10.2) L 01/25/18 08:26 Magnesium 1.9 mg/dL (1.6-2.3) 01/23/18 19:34 Total Bilirubin 0.7 mg/dL (0.2-1.3) 01/24/18 05:44 AST 22 U/L (17-59) 01/24/18 05:44 ALT 27 U/L (21-72) 01/24/18 05:44 Alkaline Phosphatase 60 U/L (38-126) 01/24/18 05:44 Total Protein 5.7 g/dL (6.3-8.2) L 01/24/18 05:44 Albumin 3.1 g/dL (3.5-5.0) L 01/24/18 05:44 Urine Color Light Yellow 01/23/18 20:15 Urine Appearance Clear (Clear) 01/23/18 20:15 Urine pH 5.0 (5.0-8.0) 01/23/18 20:15 Ur Specific [place] 1.013 (1.001-1.035) 01/23/18 20:15 Urine Protein Trace (Negative) H 01/23/18 20:15 Urine Glucose (UA) Trace (Negative) H 01/23/18 20:15 Urine Ketones Negative (Negative) 01/23/18 20:15 Urine Blood Negative (Negative) 01/23/18 20:15 Urine Nitrite Negative (Negative) 01/23/18 20:15 Urine Bilirubin Negative (Negative) 01/23/18 20:15 Urine Urobilinogen <2.0 mg/dL (<2.0) 01/23/18 20:15 Ur Leukocyte Esterase Negative (Negative) 01/23/18 20:15 C. difficile (EIA) Intrp Negative (Negative) 01/25/18 00:11 Influenza Type A RNA Not Detected (Not Detectd) 01/23/18 19:34 Influenza Type B (PCR) Not Detected (Not Detectd) 01/23/18 19:34 Microbiology 01/23/18 19:34 Blood Blood Culture - Preliminary No Growth after 48 hours 01/23/18 20:15 Urine,Voided Urine Culture - Final Assessment and Plan (1) Fever Narrative/Plan: Patient relates that he feels better now that his fever has broken. He is having no further chills. Does feel poorly. Is having some pain to his shoulders. This is not new but bothersome and he developed his fever and leukocytosis. His sensitivity and point tenderness over the left lateral surface of the hip without much erythema or warmth. 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 Antimicrobial therapy with Rocephin given for now with concerns to skin soft tissue infection potentially over that left hip area, is a [place] hip. Sed rate CRP and uric acid levels will be obtained. Cultures are process which will further help direct his antimicrobial therapy. 01/25/2018. Patient feeling somewhat better but did have difficulty with the swallow study. Speech pathology advice as noted. Cultures in process. Patient 's fever has improved.tolerating Rocephin well and is being monitored for need for change. Current Visit: Yes Status: Acute Code(s): R50.9 - FEVER, UNSPECIFIED SNOMED Code(s): 293263098 (2) Leukocytosis Current Visit: Yes Status: Acute Code(s): D72.829 - ELEVATED WHITE BLOOD CELL COUNT, UNSPECIFIED SNOMED Code(s): 155549909 (3) Leukocytosis Current Visit: Yes Status: Acute Code(s): D72.829 - ELEVATED WHITE BLOOD CELL COUNT, UNSPECIFIED SNOMED Code(s): 616187872 (4) Joint pain Current Visit: Yes Status: Acute Code(s): M25.50 - PAIN IN UNSPECIFIED JOINT SNOMED Code(s): 43278872
[2018-01-26] MEDS: SODIUM CHLORIDE 0.9% 1,000 ML IV SCH ×2 (02:13→15:55)
[2018-01-26 02:32] LABS: Glucose,Whole Blood 148 mg/dL (75-99)
[2018-01-26 07:39] LABS: Glucose,Whole Blood 136 mg/dL (75-99)
[2018-01-26] MEDS: ATORVASTATIN 40 MG TAB PO SCH (08:24)
[2018-01-26] MEDS: APIXABAN 2.5 MG TABLET PO SCH ×2 (08:24→21:23)
[2018-01-26] MEDS: amLODIPine 5 MG TAB PO SCH (08:24)
[2018-01-26] MEDS: ASPIRIN 81 MG PO SCH (08:24)
[2018-01-26] MEDS: cefTRIAXone IN SWFI 1,000 MG/10 ML SYRINGE IVP SCH (08:24)
[2018-01-26] MEDS: FOLIC ACID 1 MG TAB PO SCH (08:24)
[2018-01-26] MEDS: FERROUS SULFATE 325 MG TAB PO SCH ×2 (08:24→21:23)
[2018-01-26] MEDS: ATENOLOL 25 MG TAB PO SCH (08:24)
[2018-01-26 09:08] LABS: Calcium 8.3 mg/dL (8.4-10.2); Potassium 4.6 mmol/L (3.5-5.1)
[2018-01-26 12:42] LABS: Glucose,Whole Blood 164 mg/dL (75-99)
[2018-01-26] MEDS: CHOLECALCIFEROL 1,000 UNIT TAB PO SCH (13:07)
[2018-01-26 16:59] LABS: Glucose,Whole Blood 197 mg/dL (75-99)
[2018-01-26 21:10] LABS: Glucose,Whole Blood 257 mg/dL (75-99)
[2018-01-26] MEDS: PANTOPRAZOLE 40 MG/10 ML VIAL IVP SCH (21:24)
[2018-01-26] MEDS: SUCRALFATE 1 GM TAB PO SCH (21:27)
--- NOTE | 2018-01-27 00:56 | P.PN ---
Subjective Progress Note Date: 01/26/18 This is an 87-year-old male patient who gives history that yesterday he got up in the morning was feeling fine. He he ate his usual cream of wheat in the morning and took his pills. He checked his blood sugar was checked was 99 and laid down on the couch. Later he attempted to get up off the couch and he couldn't. He states he had increased weakness and was unable to get up to the bathroom. He was trying to pull himself and that did not help. He tried to call his children but no one was home and eventually later in the day, his son came over and helped him up. He had vomiting 1 episode. He denies any diarrhea, abdominal pain. He has a cough that is present for years with no change. He denies any dysuria. He denies any wounds or rashes. He has chronic pain to his right hip with numbness down the anterior thigh which is unchanged. He also complains of chronic pain in bilateral shoulders and left hand which is unchanged. His son called an ambulance and he was transported into [facility] emergency center for evaluation. He was found to have a temperature 102.1 and leukocytosis of 15.5. Influenza testing was negative. BUN 57 creatinine 1.3 with improvement to 46 and 1.12. White count is also improved to 14.7. Urinalysis was clear with nitrate and leukoesterase negative. Urine culture and blood culture were obtained. Chest x-ray showed no acute process. Patient was started on Rocephin and vancomycin and is slotted to be admitted to the [facility] floor awaiting a bed in the emergency center. Patient has a regular diet ordered but he states he has not had anything to eat since he arrived. 01/25/2018 he continues to feel poorly. Swallowing study was performed today revealing evidence of difficulties and needs to be sitting upright with chin tuck when he swallows. Concerns to some aspiration. Patient is weak and understands need for going to rehab. Temperature is improved. Continues to have pain over the left hip and bilateral shoulders, does not appear to be extremely new. 01/26/2018 having great difficulty with eating does not like the chin tuck. complains of severe reflux and discomfort when eating. Objective - Vital Signs Vital signs: Vital Signs Temp 100.1 F H 01/26/18 23:35 Pulse 72 01/26/18 23:35 Resp 20 01/26/18 23:35 BP 127/66 01/26/18 23:35 Pulse Ox 94 L 01/26/18 23:35 Intake & Output 01/26/18 01/26/18 01/27/18 06:59 18:59 06:59 Intake Total 600 360 540 Output Total 675 Balance 600 -315 540 Weight 78 kg Intake: Oral 600 360 540 Output: Urine 675 Other: # Voids 3 2 4 # Bowel Movements 0 - Exam Gen: This is an 87-year-old male patient seen in the ER. He is on the stretcher sitting up and appears to be comfortable and in no acute distress. HEENT: Head is atraumatic, normocephalic. Pupils equal, round. Sclerae is anicteric. Conjunctiva pink. Mucous membranes of the mouth are moist. Dentition is in fair order for his age. He is missing some teeth and the bottom front. NECK: Supple. No JVD. No lymphadenopathy. No thyromegaly. LUNGS: Clear to auscultation. No wheezes or rhonchi. No intercostal retractions. HEART: Regular rate and rhythm. No murmur. ABDOMEN: Soft. Bowel sounds are present. No masses. No tenderness. EXTREMITIES: No pedal edema. No calf tenderness. Dorsalis pedis +2 bilaterally. NEUROLOGICAL: Patient is awake, alert and oriented x3. - Labs CBC & Chem 7: 01/24/18 05:44 01/26/18 08:30 Labs: Abnormal Lab Results - Last 24 Hours (Table) 01/26/18 01/26/18 01/26/18 Range/Units 02:09 07:32 08:30 Chloride 112 H (98-107) mmol/L Carbon Dioxide 21 L (22-30) mmol/L Glucose 124 H (74-99) mg/dL POC Glucose (mg/dL) 148 H 136 H (75-99) mg/dL Calcium 8.3 L (8.4-10.2) mg/dL 01/26/18 01/26/18 01/26/18 Range/Units 12:37 16:56 21:00 Chloride (98-107) mmol/L Carbon Dioxide (22-30) mmol/L Glucose (74-99) mg/dL POC Glucose (mg/dL) 164 H 197 H 257 H (75-99) mg/dL Calcium (8.4-10.2) mg/dL Microbiology - Last 24 Hours (Table) 01/23/18 19:34 Blood Culture - Preliminary Blood No Growth after 72 hours Laboratory Results WBC 14.7 k/uL (3.8-10.6) H 01/24/18 05:44 RBC 3.06 m/uL (4.30-5.90) L 01/24/18 05:44 Hgb 9.5 gm/dL (13.0-17.5) L 01/24/18 05:44 Hct 28.7 % (39.0-53.0) L 01/24/18 05:44 MCV 93.9 fL (80.0-100.0) 01/24/18 05:44 MCH 31.2 pg (25.0-35.0) 01/24/18 05:44 MCHC 33.2 g/dL (31.0-37.0) 01/24/18 05:44 RDW 15.9 % (11.5-15.5) H 01/24/18 05:44 Plt Count 253 k/uL (150-450) 01/24/18 05:44 Neutrophils % 79 % 01/24/18 05:44 Lymphocytes % 14 % 01/24/18 05:44 Monocytes % 5 % 01/24/18 05:44 Eosinophils % 1 % 01/24/18 05:44 Basophils % 0 % 01/24/18 05:44 Neutrophils # 11.6 k/uL (1.3-7.7) H 01/24/18 05:44 Lymphocytes # 2.0 k/uL (1.0-4.8) 01/24/18 05:44 Monocytes # 0.8 k/uL (0-1.0) 01/24/18 05:44 Eosinophils # 0.1 k/uL (0-0.7) 01/24/18 05:44 Basophils # 0.1 k/uL (0-0.2) 01/24/18 05:44 Sodium 144 mmol/L (137-145) 01/26/18 08:30 Potassium 4.6 mmol/L (3.5-5.1) 01/26/18 08:30 Chloride 112 mmol/L (98-107) H 01/26/18 08:30 Carbon Dioxide 21 mmol/L (22-30) L 01/26/18 08:30 Anion Gap 11 mmol/L 01/26/18 08:30 BUN 20 mg/dL (9-20) 01/26/18 08:30 Creatinine 0.91 mg/dL (0.66-1.25) 01/26/18 08:30 Est GFR (CKD-EPI)AfAm 87 (>60 ml/min/1.73 sqM) 01/26/18 08:30 Est GFR (CKD-EPI)NonAf 75 (>60 ml/min/1.73 sqM) 01/26/18 08:30 Glucose 124 mg/dL (74-99) H 01/26/18 08:30 POC Glucose (mg/dL) 257 mg/dL (75-99) H 01/26/18 21:00 POC Glu Marketing Production Specialist ID Ronna Leggett 01/26/18 21:00 Plasma Lactic Acid Maulik 1.3 mmol/L (0.7-2.0) 01/23/18 19:34 Calcium 8.3 mg/dL (8.4-10.2) L 01/26/18 08:30 Magnesium 1.9 mg/dL (1.6-2.3) 01/23/18 19:34 Total Bilirubin 0.7 mg/dL (0.2-1.3) 01/24/18 05:44 AST 22 U/L (17-59) 01/24/18 05:44 ALT 27 U/L (21-72) 01/24/18 05:44 Alkaline Phosphatase 60 U/L (38-126) 01/24/18 05:44 Total Protein 5.7 g/dL (6.3-8.2) L 01/24/18 05:44 Albumin 3.1 g/dL (3.5-5.0) L 01/24/18 05:44 Urine Color Light Yellow 01/23/18 20:15 Urine Appearance Clear (Clear) 01/23/18 20:15 Urine pH 5.0 (5.0-8.0) 01/23/18 20:15 Ur Specific [place] 1.013 (1.001-1.035) 01/23/18 20:15 Urine Protein Trace (Negative) H 01/23/18 20:15 Urine Glucose (UA) Trace (Negative) H 01/23/18 20:15 Urine Ketones Negative (Negative) 01/23/18 20:15 Urine Blood Negative (Negative) 01/23/18 20:15 Urine Nitrite Negative (Negative) 01/23/18 20:15 Urine Bilirubin Negative (Negative) 01/23/18 20:15 Urine Urobilinogen <2.0 mg/dL (<2.0) 01/23/18 20:15 Ur Leukocyte Esterase Negative (Negative) 01/23/18 20:15 C. difficile (EIA) Intrp Negative (Negative) 01/25/18 00:11 Influenza Type A RNA Not Detected (Not Detectd) 01/23/18 19:34 Influenza Type B (PCR) Not Detected (Not Detectd) 01/23/18 19:34 Microbiology 01/23/18 19:34 Blood Blood Culture - Preliminary No Growth after 72 hours 01/23/18 20:15 Urine,Voided Urine Culture - Final Assessment and Plan (1) Fever Narrative/Plan: Patient relates that he feels better now that his fever has broken. He is having no further chills. Does feel poorly. Is having some pain to his shoulders. This is not new but bothersome and he developed his fever and leukocytosis. His sensitivity and point tenderness over the left lateral surface of the hip without much erythema or warmth. 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 Antimicrobial therapy with Rocephin given for now with concerns to skin soft tissue infection potentially over that left hip area, is a [place] hip. Sed rate CRP and uric acid levels will be obtained. Cultures are process which will further help direct his antimicrobial therapy. 01/25/2018. Patient feeling somewhat better but did have difficulty with the swallow study. Speech pathology advice as noted. Cultures in process. Patient 's fever has improved.tolerating Rocephin well and is being monitored for need for change. 01/26/2018 patient still quite miserable with reflux symptoms, will give protonix IV and carafate to relieve the symptoms which may impact swallowing also if reflux is worsening the issue. If not improved may need endoscopy to evaluate. Approached what patients wishes are, he states has lived a long life not ready for hospice yet but maybe soon if he does not recover. Current Visit: Yes Status: Acute Code(s): R50.9 - FEVER, UNSPECIFIED SNOMED Code(s): 245858155 (2) Leukocytosis Current Visit: Yes Status: Acute Code(s): D72.829 - ELEVATED WHITE BLOOD CELL COUNT, UNSPECIFIED SNOMED Code(s): 075851912 (3) Leukocytosis Current Visit: Yes Status: Acute Code(s): D72.829 - ELEVATED WHITE BLOOD CELL COUNT, UNSPECIFIED SNOMED Code(s): 710235965 (4) Joint pain Current Visit: Yes Status: Acute Code(s): M25.50 - PAIN IN UNSPECIFIED JOINT SNOMED Code(s): 56966404
[2018-01-27 02:05] LABS: Glucose,Whole Blood 184 mg/dL (75-99)
[2018-01-27 07:31] LABS: Glucose,Whole Blood 151 mg/dL (75-99)
[2018-01-27] MEDS: SODIUM CHLORIDE 0.9% 1,000 ML IV SCH ×2 (08:41→17:27)
[2018-01-27] MEDS: FERROUS SULFATE 325 MG TAB PO SCH ×2 (08:42→21:57)
[2018-01-27] MEDS: ATENOLOL 25 MG TAB PO SCH (08:42)
[2018-01-27] MEDS: FOLIC ACID 1 MG TAB PO SCH (08:42)
[2018-01-27] MEDS: ASPIRIN 81 MG PO SCH (08:42)
[2018-01-27] MEDS: APIXABAN 2.5 MG TABLET PO SCH ×2 (08:42→21:57)
[2018-01-27] MEDS: SUCRALFATE 1 GM TAB PO SCH ×4 (08:42→21:57)
[2018-01-27] MEDS: amLODIPine 5 MG TAB PO SCH (08:42)
[2018-01-27] MEDS: ATORVASTATIN 40 MG TAB PO SCH (08:42)
[2018-01-27] MEDS: PANTOPRAZOLE 40 MG/10 ML VIAL IVP SCH ×2 (08:43→21:57)
[2018-01-27] MEDS: cefTRIAXone IN SWFI 1,000 MG/10 ML SYRINGE IVP SCH (08:48)
[2018-01-27 09:42] LABS: Calcium 8.2 mg/dL (8.4-10.2); Potassium 4.2 mmol/L (3.5-5.1)
[2018-01-27] MEDS: CHOLECALCIFEROL 1,000 UNIT TAB PO SCH (11:58)
[2018-01-27 12:08] LABS: Glucose,Whole Blood 184 mg/dL (75-99)
[2018-01-27 17:21] LABS: Glucose,Whole Blood 197 mg/dL (75-99)
[2018-01-27] MEDS: INSULIN ASPART 100 UNIT/ML 1 ML 10 ML VIAL SQ SCH (17:26)
--- NOTE | 2018-01-27 18:43 | PN ---
PROGRESS NOTE DATE OF SERVICE: 01/26/2018. CHIEF COMPLAINT: Urinary tract infection. HISTORY OF PRESENT ILLNESS: This gentleman is doing well and temperature has been down. His strength is returning. He remains oriented. PHYSICAL EXAM: Chest is clear. Cardiac exam is normal. Abdomen is soft, nontender. IMPRESSION: 1. Urinary tract infection. 2. Diabetes. 3. Difficulty swallowing. PLAN: 1. He is undergoing swallow evaluation to look for the etiology of his choking when he swallows. 2. Sugars have been low and oral and subcu medications will be stopped to see what his blood sugars do. 3. He will probably be going for rehab. MMODL / IJN: [id number] /
--- NOTE | 2018-01-27 18:43 | PN ---
PROGRESS NOTE CHIEF COMPLAINT: Urinary tract infection. HISTORY OF PRESENT ILLNESS: This gentleman is doing well and feeling well, but his sugars are starting to rise and we will put him back on insulin without oral agents. PHYSICAL EXAM: CHEST: Clear. Cardiac exam is normal. Abdomen is soft, nontender. EXTREMITIES: Normal. IMPRESSION: 1. Urinary tract infection. 2. Diabetes. PLAN: Reinstitute insulin and he will probably be able to go to rehab facility tomorrow. MMODL / IJN: [id number] /
[2018-01-27] MEDS ORDERED: INSULIN DETEMIR 100 UNIT/ML 10 ML VIAL SQ SCH (21:00)
[2018-01-27 21:19] LABS: Glucose,Whole Blood 168 mg/dL (75-99)
[2018-01-28 02:01] LABS: Glucose,Whole Blood 115 mg/dL (75-99)
[2018-01-28 07:24] LABS: Glucose,Whole Blood 55 mg/dL (75-99)
[2018-01-28 07:39] LABS: Glucose,Whole Blood 66 mg/dL (75-99)
[2018-01-28 07:48] LABS: Glucose,Whole Blood 72 mg/dL (75-99)
[2018-01-28] MEDS: amLODIPine 5 MG TAB PO SCH (09:05)
[2018-01-28] MEDS: PANTOPRAZOLE 40 MG/10 ML VIAL IVP SCH ×2 (09:05→21:28)
[2018-01-28] MEDS: cefTRIAXone IN SWFI 1,000 MG/10 ML SYRINGE IVP SCH (09:05)
[2018-01-28] MEDS: SUCRALFATE 1 GM TAB PO SCH ×4 (09:05→21:28)
[2018-01-28] MEDS: APIXABAN 2.5 MG TABLET PO SCH ×2 (09:05→21:28)
[2018-01-28] MEDS: INSULIN ASPART 100 UNIT/ML 1 ML 10 ML VIAL SQ SCH ×3 (09:06→18:05)
[2018-01-28] MEDS: ATORVASTATIN 40 MG TAB PO SCH (09:06)
[2018-01-28] MEDS: ATENOLOL 25 MG TAB PO SCH (09:06)
[2018-01-28] MEDS: FERROUS SULFATE 325 MG TAB PO SCH ×2 (09:06→21:28)
[2018-01-28] MEDS: FOLIC ACID 1 MG TAB PO SCH (09:10)
[2018-01-28] MEDS: SODIUM CHLORIDE 0.9% 1,000 ML IV SCH (09:10)
[2018-01-28 10:30] LABS: Calcium 8.2 mg/dL (8.4-10.2); Potassium 4.4 mmol/L (3.5-5.1)
[2018-01-28 11:25] VITALS: BMI 28.3
[2018-01-28 12:06] LABS: Glucose,Whole Blood 216 mg/dL (75-99)
[2018-01-28] MEDS: CEPHALEXIN 250 MG CAP PO SCH ×3 (13:03→21:29)
[2018-01-28] MEDS: CHOLECALCIFEROL 1,000 UNIT TAB PO SCH (13:04)
[2018-01-28] MEDS: ASPIRIN 81 MG PO SCH (13:04)
--- NOTE | 2018-01-28 15:44 | DS ---
DISCHARGE SUMMARY CHIEF COMPLAINT: Weakness and urinary tract infection. HISTORY OF PRESENT ILLNESS AND PHYSICAL EXAM: Details of this man's history and physical can be found in the initial workup. LABORATORY STUDIES: While he was in a hospital he had laboratory studies details which can be found in the laboratory section of chart. COURSE IN HOSPITAL: After admission he was placed on bedrest and started on intravenous fluids and after cultures were obtained, he was placed on antibiotics. Temperature came down and he did well. He complained of some difficulty with swallowing and frequent choking and this was evaluated and there was no significant pathology other than he did not clear the upper pharynx with deglutition very efficiently. It was felt that he would benefit with some rehab and arrangements were made for him to go to [facility]. He will go to [facility] on the . FINAL DIAGNOSES: 1. Urinary tract infection. 2. Generalized weakness. 3. Diabetes mellitus. 4. Osteoarthritis. 5. Problems with swallowing. 6. Poorly-controlled insulin-dependent diabetes mellitus. OPERATIONS: None. CONSULTATIONS: Infectious Disease. He is improved. MARIPOSA / JOANNE: [id number] /
[2018-01-28 17:42] LABS: Glucose,Whole Blood 101 mg/dL (75-99)
[2018-01-28] MEDS ORDERED: INSULIN DETEMIR 100 UNIT/ML 10 ML VIAL SQ SCH (21:00)
[2018-01-28 21:04] LABS: Glucose,Whole Blood 114 mg/dL (75-99)
--- NOTE | 2018-01-28 21:48 | P.PN ---
Subjective Progress Note Date: 01/28/18 This is an 87-year-old male patient who gives history that yesterday he got up in the morning was feeling fine. He he ate his usual cream of wheat in the morning and took his pills. He checked his blood sugar was checked was 99 and laid down on the couch. Later he attempted to get up off the couch and he couldn't. He states he had increased weakness and was unable to get up to the bathroom. He was trying to pull himself and that did not help. He tried to call his children but no one was home and eventually later in the day, his son came over and helped him up. He had vomiting 1 episode. He denies any diarrhea, abdominal pain. He has a cough that is present for years with no change. He denies any dysuria. He denies any wounds or rashes. He has chronic pain to his right hip with numbness down the anterior thigh which is unchanged. He also complains of chronic pain in bilateral shoulders and left hand which is unchanged. His son called an ambulance and he was transported into [facility] emergency center for evaluation. He was found to have a temperature 102.1 and leukocytosis of 15.5. Influenza testing was negative. BUN 57 creatinine 1.3 with improvement to 46 and 1.12. White count is also improved to 14.7. Urinalysis was clear with nitrate and leukoesterase negative. Urine culture and blood culture were obtained. Chest x-ray showed no acute process. Patient was started on Rocephin and vancomycin and is slotted [facility] a bed in the emergency center. Patient has a regular diet ordered but he states he has not had anything to eat since he arrived. 01/25/2018 he continues to feel poorly. Swallowing study was performed today revealing evidence of difficulties and needs to be sitting upright with chin tuck when he swallows. Concerns to some aspiration. Patient is weak and understands need for going to rehab. Temperature is improved. Continues to have pain over the left hip and bilateral shoulders, does not appear to be extremely new. 01/26/2018 having great difficulty with eating does not like the chin tuck. complains of severe reflux and discomfort when eating. 01/28/2018 patient is definitely improved today. Sinus difficulties with a chin tuck. Severe burning and reflux with his eating has improved. Her seems to have relates that he is definitely eating a good amount of his tray. Objective - Vital Signs Vital signs: Vital Signs Temp 97.8 F 01/28/18 15:00 Pulse 55 L 01/28/18 16:00 Resp 18 01/28/18 16:00 BP 90/52 01/28/18 15:00 Pulse Ox 95 01/28/18 15:00 Intake & Output 01/28/18 01/28/18 01/29/18 06:59 18:59 06:59 Intake Total 600 Output Total 400 400 Balance 200 -400 Weight 79.5 kg 79.5 kg Intake: Intake, IV Titration 600 Amount Sodium Chloride 0.9% 1, 600 000 ml @ 75 mls/hr IV . [id number] TREY Rx#:[id number] Output: Urine 400 400 Other: Voiding Method Urinal # Voids 2 - Exam Gen: This is an 87-year-old male patient seen in the ER. He is on the stretcher sitting up and appears to be comfortable and in no acute distress. HEENT: Head is atraumatic, normocephalic. Pupils equal, round. Sclerae is anicteric. Conjunctiva pink. Mucous membranes of the mouth are moist. Dentition is in fair order for his age. He is missing some teeth and the bottom front. NECK: Supple. No JVD. No lymphadenopathy. No thyromegaly. LUNGS: Clear to auscultation. No wheezes or rhonchi. No intercostal retractions. HEART: Regular rate and rhythm. No murmur. ABDOMEN: Soft. Bowel sounds are present. No masses. No tenderness. EXTREMITIES: No pedal edema. No calf tenderness. Dorsalis pedis +2 bilaterally. NEUROLOGICAL: Patient is awake, alert and oriented x3. - Labs CBC & Chem 7: 01/24/18 05:44 01/28/18 09:13 Labs: Abnormal Lab Results - Last 24 Hours (Table) 01/28/18 01/28/18 01/28/18 Range/Units 01:59 07:10 07:27 Glucose (74-99) mg/dL POC Glucose (mg/dL) 115 H 55 L 66 L (75-99) mg/dL Calcium (8.4-10.2) mg/dL 01/28/18 01/28/18 01/28/18 Range/Units 07:43 09:13 11:57 Glucose 171 H (74-99) mg/dL POC Glucose (mg/dL) 72 L 216 H (75-99) mg/dL Calcium 8.2 L (8.4-10.2) mg/dL 01/28/18 01/28/18 Range/Units 17:11 20:54 Glucose (74-99) mg/dL POC Glucose (mg/dL) 101 H 114 H (75-99) mg/dL Calcium (8.4-10.2) mg/dL Microbiology - Last 24 Hours (Table) 01/23/18 19:34 Blood Culture - Preliminary Blood No Growth after 96 hours Laboratory Results WBC 14.7 k/uL (3.8-10.6) H 01/24/18 05:44 RBC 3.06 m/uL (4.30-5.90) L 01/24/18 05:44 Hgb 9.5 gm/dL (13.0-17.5) L 01/24/18 05:44 Hct 28.7 % (39.0-53.0) L 01/24/18 05:44 MCV 93.9 fL (80.0-100.0) 01/24/18 05:44 MCH 31.2 pg (25.0-35.0) 01/24/18 05:44 MCHC 33.2 g/dL (31.0-37.0) 01/24/18 05:44 RDW 15.9 % (11.5-15.5) H 01/24/18 05:44 Plt Count 253 k/uL (150-450) 01/24/18 05:44 Neutrophils % 79 % 01/24/18 05:44 Lymphocytes % 14 % 01/24/18 05:44 Monocytes % 5 % 01/24/18 05:44 Eosinophils % 1 % 01/24/18 05:44 Basophils % 0 % 01/24/18 05:44 Neutrophils # 11.6 k/uL (1.3-7.7) H 01/24/18 05:44 Lymphocytes # 2.0 k/uL (1.0-4.8) 01/24/18 05:44 Monocytes # 0.8 k/uL (0-1.0) 01/24/18 05:44 Eosinophils # 0.1 k/uL (0-0.7) 01/24/18 05:44 Basophils # 0.1 k/uL (0-0.2) 01/24/18 05:44 Sodium 142 mmol/L (137-145) 01/28/18 09:13 Potassium 4.4 mmol/L (3.5-5.1) 01/28/18 09:13 Chloride 106 mmol/L (98-107) 01/28/18 09:13 Carbon Dioxide 24 mmol/L (22-30) 01/28/18 09:13 Anion Gap 12 mmol/L 01/28/18 09:13 BUN 17 mg/dL (9-20) 01/28/18 09:13 Creatinine 1.19 mg/dL (0.66-1.25) 01/28/18 09:13 Est GFR (CKD-EPI)AfAm 63 (>60 ml/min/1.73 sqM) 01/28/18 09:13 Est GFR (CKD-EPI)NonAf 54 (>60 ml/min/1.73 sqM) 01/28/18 09:13 Glucose 171 mg/dL (74-99) H 01/28/18 09:13 POC Glucose (mg/dL) 114 mg/dL (75-99) H 01/28/18 20:54 POC Glu [employer] Worker SANIA Michelle Leyva 01/28/18 20:54 Plasma Lactic Acid Maulik 1.3 mmol/L (0.7-2.0) 01/23/18 19:34 Calcium 8.2 mg/dL (8.4-10.2) L 01/28/18 09:13 Magnesium 1.9 mg/dL (1.6-2.3) 01/23/18 19:34 Total Bilirubin 0.7 mg/dL (0.2-1.3) 01/24/18 05:44 AST 22 U/L (17-59) 01/24/18 05:44 ALT 27 U/L (21-72) 01/24/18 05:44 Alkaline Phosphatase 60 U/L (38-126) 01/24/18 05:44 Total Protein 5.7 g/dL (6.3-8.2) L 01/24/18 05:44 Albumin 3.1 g/dL (3.5-5.0) L 01/24/18 05:44 Urine Color Light Yellow 01/23/18 20:15 Urine Appearance Clear (Clear) 01/23/18 20:15 Urine pH 5.0 (5.0-8.0) 01/23/18 20:15 Ur Specific Cerulean 1.013 (1.001-1.035) 01/23/18 20:15 Urine Protein Trace (Negative) H 01/23/18 20:15 Urine Glucose (UA) Trace (Negative) H 01/23/18 20:15 Urine Ketones Negative (Negative) 01/23/18 20:15 Urine Blood Negative (Negative) 01/23/18 20:15 Urine Nitrite Negative (Negative) 01/23/18 20:15 Urine Bilirubin Negative (Negative) 01/23/18 20:15 Urine Urobilinogen <2.0 mg/dL (<2.0) 01/23/18 20:15 Ur Leukocyte Esterase Negative (Negative) 01/23/18 20:15 C. difficile (EIA) Intrp Negative (Negative) 01/25/18 00:11 Influenza Type A RNA Not Detected (Not Detectd) 01/23/18 19:34 Influenza Type B (PCR) Not Detected (Not Detectd) 01/23/18 19:34 Microbiology 01/23/18 19:34 Blood Blood Culture - Preliminary No Growth after 120 hours Assessment and Plan (1) Fever Narrative/Plan: Patient relates that he feels better now that his fever has broken. He is having no further chills. Does feel poorly. Is having some pain to his shoulders. This is not new but bothersome and he developed his fever and leukocytosis. His sensitivity and point tenderness over the left lateral surface of the hip without much erythema or warmth. 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 Antimicrobial therapy with Rocephin given for now with concerns to skin soft tissue infection potentially over that left hip area, is a shoalwater hip. Sed rate CRP and uric acid levels will be obtained. Cultures are process which will further help direct his antimicrobial therapy. 01/25/2018. Patient feeling somewhat better but did have difficulty with the swallow study. Speech pathology advice as noted. Cultures in process. Patient 's fever has improved.tolerating Rocephin well and is being monitored for need for change. 01/26/2018 patient still quite miserable with reflux symptoms, will give protonix IV and carafate to relieve the symptoms which may impact swallowing also if reflux is worsening the issue. If not improved may need endoscopy to evaluate. Approached what patients wishes are, he states has lived a long life not ready for hospice yet but maybe soon if he does not recover. 01/28/2018 patient has had some improvement. Severe gastritis and reflux improved with the utilization of the intravenous Protonix and some Carafate. His risks for discharge: With primary as far as best possible regiment for home. Continue with protein supplementation. If he improves will be able to transition Rocephin to cefuroxime 500 mg every 12 hours Current Visit: Yes Status: Acute Code(s): R50.9 - FEVER, UNSPECIFIED SNOMED Code(s): 103448771 (2) Leukocytosis Current Visit: Yes Status: Acute Code(s): D72.829 - ELEVATED WHITE BLOOD CELL COUNT, UNSPECIFIED SNOMED Code(s): 536853137 (3) Leukocytosis Current Visit: Yes Status: Acute Code(s): D72.829 - ELEVATED WHITE BLOOD CELL COUNT, UNSPECIFIED SNOMED Code(s): 030592181 (4) Joint pain Current Visit: Yes Status: Acute Code(s): M25.50 - PAIN IN UNSPECIFIED JOINT SNOMED Code(s): 30866167
[2018-01-29 02:10] LABS: Glucose,Whole Blood 107 mg/dL (75-99)
[2018-01-29] MEDS: ACETAMINOPHEN TAB 500 MG TAB PO PRN (02:36)
[2018-01-29 05:44] LABS: Glucose,Whole Blood 139 mg/dL (75-99)
[2018-01-29 06:35] VITALS: BP 102/68; PULSE 97; RESP 20; TEMP 96.2
[2018-01-29 07:11] LABS: Glucose,Whole Blood 140 mg/dL (75-99)
[2018-01-29 08:24] LABS: Calcium 8.4 mg/dL (8.4-10.2); Potassium 4.7 mmol/L (3.5-5.1)
[2018-01-29] MEDS: INSULIN ASPART 100 UNIT/ML 1 ML 10 ML VIAL SQ SCH ×2 (08:27→12:31)
[2018-01-29] MEDS: APIXABAN 2.5 MG TABLET PO SCH (08:29)
[2018-01-29] MEDS: SUCRALFATE 1 GM TAB PO SCH ×2 (08:29→12:30)
[2018-01-29] MEDS: PANTOPRAZOLE 40 MG/10 ML VIAL IVP SCH (08:29)
[2018-01-29] MEDS: FOLIC ACID 1 MG TAB PO SCH (08:30)
[2018-01-29] MEDS: FERROUS SULFATE 325 MG TAB PO SCH (08:30)
[2018-01-29] MEDS: CEPHALEXIN 250 MG CAP PO SCH ×2 (08:30→14:22)
[2018-01-29] MEDS: ASPIRIN 81 MG PO SCH (08:30)
[2018-01-29] MEDS: ATORVASTATIN 40 MG TAB PO SCH (08:30)
[2018-01-29] MEDS: CHOLECALCIFEROL 1,000 UNIT TAB PO SCH (08:31)
[2018-01-29] MEDS: ATENOLOL 25 MG TAB PO SCH (08:48)
[2018-01-29] MEDS: amLODIPine 5 MG TAB PO SCH (08:48)
[2018-01-29 11:34] LABS: Glucose,Whole Blood 146 mg/dL (75-99)
--- NOTE | 2018-01-29 14:30 | CDI ---
Last Revision, August 2017 Documentation Clarification Form Date: 01/29/2018 1:19 PM From: Keila Wakefield Admit Date: 01/23/2018 9:01:00 PM Patient Name: James Mccarty V Visit Number: [id number] Discharge Date: ATTENTION: The Clinical Documentation Specialists (CDI) and [facility] Coding Staff appreciate your assistance in clarifying documentation. Please respond to the clarification below the line at the bottom and electronically sign. The CDI & [facility] Coding staff will review the response and follow-up if needed. Please note: Queries are made part of the Legal Health Record. If you have any questions, please contact the author of this message via ITS. Dr. Jaguar Casas Clarification is sought regarding the clinical significance, if any, of Fever and leukocytosis History/Risk Factors: presenting with weakness, malaise, N/V and fever and leukocytosis, dysphagia, GERD Clinical Indicators: Preliminary consult note 01/24 notes signs of Sepsis, ID notes fever and leukocytosis .HP notes fever unknown origin PN 01/25-01/28 state UTI WBC 15.7 Lactic acid: 1.3 Blood cultures: no growth, urine cultures no growth, influenza negative UA: light yellow, clear, neg- ketones, blood, nitrates and leukocyte esterase Vitals signs on admission: Temp ax of 102.1 HR 85 RR 18 BP 132/60 Other Clinical Indicators: erythema with concern for soft tissue injury quinault left hip Treatment: Tylenol IVF, Swallow test with severe impairment ID Consult: Urinalysis was clear Antibiotics: Rocephin IV changed to Po Keflex IV Bolus:500 cc then NS @ 75 cc hr In your professional opinion, please render your opinion on the clinical significance, if any of above findings. UTI treated UTI ruled out SIRS not related to infectious process Sepsis 2nd to UTI Sepsis 2nd to unknown etiology Other, please specify Unable to determine SIRS Criteria..2 or more of the following may indicate SIRS: Temperature < 96.8F (36C) or > 101.0F (38.3C) Heart Rate > 90 bpm Respiratory Rate > 20 breaths/min or PaCO2 < 32 mmHg White Blood Cell Count > 12,000 or < 4,000 cells/mm3 or > 10% bandLactate >2.0 mmol/L (>4.0 is equivalent to septic shock) Please continue to document in your progress notes and discharge summary in order to capture severity of illness and risk of mortality. Include clinical findings that support your diagnosis. MTDD
--- NOTE | 2018-02-06 10:15 | CDI ---
Documentation Clarification Form Date: 01/29/2018 1:19 PM From: Keila Wakefield Admit Date: 01/23/2018 9:01:00 PM Patient Name: James Mccarty V Visit Number: [id number] Discharge Date: ATTENTION: The Clinical Documentation Specialists (CDI) and [facility] Coding Staff appreciate your assistance in clarifying documentation. Please respond to the clarification below the line at the bottom and electronically sign. The CDI [facility] Coding staff will review the response and follow-up if needed. Please note: Queries are made part of the Legal Health Record. If you have any questions, please contact the author of this message via ITS. Dr. Jaguar Casas Clarification is sought regarding the clinical significance, if any, of Fever and leukocytosis History/Risk Factors: presenting with weakness, malaise, N/V and fever and leukocytosis, dysphagia, GERD Clinical Indicators: Preliminary consult note 01/24 notes signs of Sepsis, ID notes fever and leukocytosis .HP notes fever unknown origin PN 01/25-01/28 state UTI WBC 15.7 Lactic acid: 1.3 Blood cultures: no growth, urine cultures no growth, influenza negative UA: light yellow, clear, neg- ketones, blood, nitrates and leukocyte esterase Vitals signs on admission: Temp ax of 102.1 HR 85 RR 18 BP 132/60 Other Clinical Indicators: erythema with concern for soft tissue injury makah left hip Treatment: Tylenol IVF, Swallow test with severe impairment ID Consult: Urinalysis was clear Antibiotics: Rocephin IV changed to Po Keflex IV Bolus:500 cc then NS @ 75 cc hr In your professional opinion, please render your opinion on the clinical significance, if any of above findings. UTI treated UTI ruled out SIRS not related to infectious process Sepsis 2nd to UTI Sepsis 2nd to unknown etiology Other, please specify Unable to determine SIRS Criteria..2 or more of the following may indicate SIRS: Temperature < 96.8F (36C) or > 101.0F (38.3C) Heart Rate > 90 bpm Respiratory Rate > 20 breaths/min or PaCO2 < 32 mmHg White Blood Cell Count > 12,000 or < 4,000 cells/mm3 or > 10% band Lactate >2.0 mmol/L (>4.0 is equivalent to septic shock) Please continue to document in your progress notes and discharge summary in order to capture severity of illness and risk of mortality. Include clinical findings that support your diagnosis. MTDD
--- NOTE | 2018-02-06 11:50 | MISC ---
MISCELLANOUS REPORT QUERY: Pending on the clinical significance UTI treated. MMODL / IJN: [id number] /
== END 2018-01-29 14:31 | DRG 690 ==
LOC: EC 19:25 → 4MS4W 21:01
PROVIDERS: ADMIT Family Medicine; ATTEND Family Medicine
DX: N39.0 Urinary tract infection, site not specified (principal); E11.9 Type 2 diabetes mellitus without complications; E86.0 Dehydration; G89.29 Other chronic pain; I10 Essential (primary) hypertension; I25.2 Old myocardial infarction; K21.9 Gastro-esophageal reflux disease without esophagitis; K29.70 Gastritis, unspecified, without bleeding; L08.9 Local infection of the skin and subcutaneous tissue, unspecified; M46.96 Unspecified inflammatory spondylopathy, lumbar region; R13.10 Dysphagia, unspecified; Z79.01 Long term (current) use of anticoagulants; Z79.4 Long term (current) use of insulin; Z79.82 Long term (current) use of aspirin; Z79.899 Other long term (current) drug therapy; Z82.5 Family history of asthma and other chronic lower respiratory diseases; Z96.1 Presence of intraocular lens; Z96.649 Presence of unspecified artificial hip joint; Z98.42 Cataract extraction status, left eye; Z98.41 Cataract extraction status, right eye; I48.91 Unspecified atrial fibrillation
CPT/HCPCS: 36415; 71046; 74177; 74230; 80048; 80053; 81003; 83605; 83735; 85025; 87040; 87086; 87324; 87502; 93005; 96361; 96365; 96366; 96375; 99285

== ENCOUNTER 2018-03-06 20:20 | Emergency (ER) | payer MEDICARE ==
[2018-03-06 20:29] VITALS: RESP 18
[2018-03-06] MEDS ORDERED: SODIUM CHLORIDE 0.9% 500 ML IV STA (20:31)
[2018-03-06] MEDS ORDERED: SODIUM CHLORIDE 0.9% 1,000 ML IV STA (20:31)
--- NOTE | 2018-03-06 20:34 | ED ---
General Adult HPI - General Chief complaint: Fall Stated complaint: Fall, hip pain Time Seen by Provider: 03/06/18 20:23 Source: EMS, RN notes reviewed, old records reviewed Mode of arrival: EMS Limitations: no limitations - History of Present Illness Initial comments: This is a 79-year-old male the ER for evaluation of falls, multiple recent falls. Patient states he fell 3 days ago and has had some decent pain in his right leg. 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 Patient's of his complaining of some leg pain and some back pain. Mild dehydration and weakness. No fevers no cough or congestion no chest pain no headache or neck pain. - Related Data Home Medications Medication Instructions Recorded Confirmed Vitamin E (Dl,Tocopheryl Acet) 400 unit PO DAILY 08/27/16 03/06/18 [Vitamin E] rOPINIRole HCL [Requip] 0.25 mg PO HS 08/27/16 03/06/18 Acetaminophen Tab [Tylenol] 500 mg PO Q4H PRN 01/24/18 03/06/18 Cholecalciferol [Vitamin D3] 1,000 unit PO DAILY 01/24/18 03/06/18 Ferrous Sulfate [Iron (65 MG 325 mg PO DAILY 01/24/18 03/06/18 Elemental)] Folic Acid 0.8 mg PO DAILY 01/24/18 03/06/18 amLODIPine [Norvasc] 5 mg PO DAILY 01/24/18 03/06/18 Ammonium Lactate Lotion 1 applic TOPICAL HS 03/06/18 03/06/18 [Lac-Hydrin 12% Lotion] Cephalexin [Keflex] 500 mg PO QID 03/06/18 03/06/18 Insulin Glargine,Hum.rec.anlog 10 unit SQ HS 03/06/18 03/06/18 [Basaglar Kwikpen U-100] Insulin Lispro [humaLOG Kwikpen] 4 unit SQ AC-TID 03/06/18 03/06/18 Sucralfate [Carafate] 1 gm PO ACHS 03/06/18 03/06/18 traMADol HCL [Ultram] 50 mg PO Q6HR 03/06/18 03/06/18 Previous Rx's Medication Instructions Recorded Albuterol Nebulized [Ventolin 2.5 mg INHALATION RT-QID PRN #0 09/01/16 Nebulized] nebu Apixaban [Eliquis] 2.5 mg PO BID #60 tablet 09/01/16 Aspirin 81 mg PO DAILY chew 09/01/16 Atenolol [Tenormin] 25 mg PO DAILY #30 tab 09/01/16 Atorvastatin [Lipitor] 40 mg PO DAILY tab 09/01/16 Nitroglycerin Sl Tabs [Nitrostat] 0.4 mg SUBLINGUAL Q5M PRN #0 tab 09/01/16 Omeprazole [PriLOSEC] 20 mg PO AC-BID #1 cap 01/29/18 Allergies Allergy/AdvReac Type Severity Reaction Status Date / Time No Known Allergies Allergy Verified 03/06/18 20:26 Review of Systems ROS Statement: Those systems with pertinent positive or pertinent negative responses have been documented in the HPI. ROS Other: All systems not noted in ROS Statement are negative. Past Medical History Past Medical History: Diabetes Mellitus, Hypertension, Myocardial Infarction (MS ), Renal Disease Additional Past Medical History / Comment(s): IDDM type II, RLS, sleep disturbance, "chokes easily", past medical hx documents renal disease stage III , COPD and CHF but pt does not recall these, Last Myocardial Infarction Date:: unknown History of Any Multi-Drug Resistant Organisms: None Reported Past Surgical History: Orthopedic Surgery Additional Past Surgical History / Comment(s): Hip [place] [address] Turpin, bilateral cataract removal and intraocular lens implants. Past Anesthesia/Blood Transfusion Reactions: No Reported Reaction Past Psychological History: No Psychological Hx Reported Smoking Status: Never smoker Past Alcohol Use History: None Reported Past Drug Use History: None Reported - Past Family History Father Family Medical History: COPD Mother Family Medical History: No Reported History General Exam Limitations: no limitations General appearance: alert, in no apparent distress Head exam: Present: atraumatic, normocephalic, normal inspection Eye exam: Present: normal appearance, PERRL, EOMI. Absent: scleral icterus, conjunctival injection, periorbital swelling ENT exam: Present: normal exam, mucous membranes dry Neck exam: Present: normal inspection. Absent: tenderness, meningismus, lymphadenopathy Respiratory exam: Present: normal lung sounds bilaterally. Absent: respiratory distress, wheezes, rales, rhonchi, stridor Cardiovascular Exam: Present: regular rate, normal rhythm, normal heart sounds. Absent: systolic murmur, diastolic murmur, rubs, gallop, clicks GI/Abdominal exam: Present: soft, normal bowel sounds. Absent: distended, tenderness, guarding, rebound, rigid Extremities exam: Present: normal inspection, full ROM, normal capillary refill. Absent: tenderness, pedal edema, joint swelling, calf tenderness Back exam: Present: normal inspection Neurological exam: Present: alert, oriented X3, CN II-XII intact Psychiatric exam: Present: normal affect, normal mood Skin exam: Present: warm, dry, intact, normal color. Absent: rash Course Vital Signs 03/06/18 20:26 Temperature 98.5 F Pulse Rate 88 Respiratory 18 Rate Blood Pressure 123/60 O2 Sat by Pulse 95 Oximetry - Reevaluation(s) Reevaluation #1: 03/06/18 21:53 feeling better after IV hydration Medical Decision Making - Medical Decision Making 87 male the ER for evaluation, feeling better here in the emergency room with IV hydration. Labwork imaging is negative. Patient will be discharged home - Lab Data Result diagrams: 03/06/18 21:06 03/06/18 21:06 Lab Results 03/06/18 03/06/18 03/06/18 Range/Units 21:06 21:06 21:06 WBC 11.3 H (3.8-10.6) k/uL RBC 3.34 L (4.30-5.90) m/uL Hgb 10.4 L (13.0-17.5) gm/dL Hct 31.7 L (39.0-53.0) % MCV 95.0 (80.0-100.0) fL MCH 31.0 (25.0-35.0) pg MCHC 32.6 (31.0-37.0) g/dL RDW 16.5 H (11.5-15.5) % Plt Count 362 (150-450) k/uL Neutrophils % 80 % Lymphocytes % 11 % Monocytes % 6 % Eosinophils % 1 % Basophils % 1 % Neutrophils # 9.1 H (1.3-7.7) k/uL Lymphocytes # 1.2 (1.0-4.8) k/uL Monocytes # 0.7 (0-1.0) k/uL Eosinophils # 0.1 (0-0.7) k/uL Basophils # 0.1 (0-0.2) k/uL Anisocytosis Slight Sodium 143 (137-145) mmol/L Potassium 4.8 (3.5-5.1) mmol/L Chloride 106 (98-107) mmol/L Carbon Dioxide 27 (22-30) mmol/L Anion Gap 10 mmol/L BUN 36 H (9-20) mg/dL Creatinine 2.10 H (0.66-1.25) mg/dL Est GFR (CKD-EPI)AfAm 32 (>60 ml/min/1.73 sqM) Est GFR (CKD-EPI)NonAf 27 (>60 ml/min/1.73 sqM) Glucose 202 H (74-99) mg/dL Calcium 9.4 (8.4-10.2) mg/dL Phosphorus 3.2 (2.5-4.5) mg/dL Magnesium 2.2 (1.6-2.3) mg/dL Total Bilirubin 0.7 (0.2-1.3) mg/dL AST 24 (17-59) U/L ALT 28 (21-72) U/L Alkaline Phosphatase 93 (38-126) U/L Total Creatine Kinase 49 L (55-170) U/L CK-MB (CK-2) 0.7 (0.0-2.4) ng/mL CK-MB (CK-2) Rel Index 1.4 Troponin I 0.044 H* (0.000-0.034) ng/mL Total Protein 6.8 (6.3-8.2) g/dL Albumin 3.7 (3.5-5.0) g/dL - Radiology Data Radiology results: report reviewed (CT brain negative for acute disease chest x- ray pelvis x-ray negative for acute disease), image reviewed Disposition Clinical Impression: Fall, Weakness, Dehydration Disposition: HOME SELF-CARE Condition: Good Instructions: Fall Prevention for Older Adults (ED) Is patient prescribed a controlled substance at d/c from ED?: No Referrals: Jaguar Casas MD [Primary Care Provider] - 1-2 days
--- NOTE | 2018-03-06 21:14 | XR ---
EXAMINATION TYPE: XR Hip Complete RT DATE OF EXAM: 03/06/2018 COMPARISON: NONE HISTORY: Right hip pain TECHNIQUE: 2 views FINDINGS: There is a right hip prosthesis. I see no fracture nor dislocation. There is no sign of loo sening. There is some osteopenia of the acetabulum however. IMPRESSION: Osteopenia. No fracture seen.
--- NOTE | 2018-03-06 21:15 | XR ---
EXAMINATION TYPE: XR chest 2V DATE OF EXAM: 03/06/2018 COMPARISON: 01/23/2018 HISTORY: Fall and weakness TECHNIQUE: Frontal and lateral views of the chest are obtained. FINDINGS: Heart and mediastinum are normal. Lungs are clear. Diaphragm is normal. Bony thorax is int act. IMPRESSION: No active cardiopulmonary disease. There is improved inspiration compared to old exam.
--- NOTE | 2018-03-06 21:16 | CT ---
EXAMINATION TYPE: CT brain simran andrea DATE OF EXAM: 03/06/2018 COMPARISON: NONE HISTORY: Fall injury x2 days ago CT DLP: 1663 mGycm Automated exposure control for dose reduction was used. TECHNIQUE: CT scan of the head and cervical spine are performed without contrast. FINDINGS: There is cerebral cortical atrophy. There is no mass effect nor midline shift. There is n o sign of intracranial hemorrhage. The calvarium appears intact. The cervical vertebra have normal spacing and alignment. Posterior elements are intact. Facet joints show mild hypertrophic spurring. The skull base is intact. There is no evidence of cervical spine fra cture. There is vascular calcification. IMPRESSION: Cerebral atrophy. No acute intracranial abnormality. Minor degenerative changes in the cervical spine. No fracture.
[2018-03-06 21:25] LABS: Albumin 3.7 g/dL (3.5-5.0); Calcium 9.4 mg/dL (8.4-10.2); Magnesium 2.2 mg/dL (1.6-2.3); Phosphorus 3.2 mg/dL (2.5-4.5); Potassium 4.8 mmol/L (3.5-5.1); Total Bilirubin 0.7 mg/dL (0.2-1.3); Total Protein 6.8 g/dL (6.3-8.2)
[2018-03-06 21:31] LABS: Anisocytosis Slight; Basophils # (A) 0.1 k/uL (0-0.2); Basophils % (A) 1 %; Eosinophils # (A) 0.1 k/uL (0-0.7); Eosinophils % (A) 1 %; HCT 31.7 % (39.0-53.0); HGB 10.4 gm/dL (13.0-17.5); Lymphocytes # (A) 1.2 k/uL (1.0-4.8); Lymphocytes % (A) 11 %; MCHC 32.6 g/dL (31.0-37.0); Mean Platelet Volume 7.2; Monocytes # (A) 0.7 k/uL (0-1.0); Monocytes % (A) 6 %; Neutrophils # (A) 9.1 k/uL (1.3-7.7); Neutrophils % (A) 80 %; Platelet Count 362 k/uL (150-450); RBC 3.34 m/uL (4.30-5.90); RDW 16.5 % (11.5-15.5); WBC 11.3 k/uL (3.8-10.6)
[2018-03-06 21:41] LABS: Creatine Kinase MB 0.7 ng/mL (0.0-2.4)
[2018-03-06 21:42] LABS: Troponin I 0.044 ng/mL (0.000-0.034)
[2018-03-06 22:06] VITALS: BP 113/74; PULSE 87; TEMP 98.4
== END 2018-03-06 22:06 | disposition home or self-care (01) ==
LOC: EC 20:20
DX: M25.551 Pain in right hip (principal); R53.1 Weakness; E86.0 Dehydration; I25.2 Old myocardial infarction; G25.81 Restless legs syndrome; I12.9 Hypertensive chronic kidney disease with stage 1 through stage 4 chronic kidney disease, or unspecified chronic kidney disease; E11.22 Type 2 diabetes mellitus with diabetic chronic kidney disease; N18.3 Chronic kidney disease, stage 3 (moderate); Z79.4 Long term (current) use of insulin; Z79.891 Long term (current) use of opiate analgesic; Z79.899 Other long term (current) drug therapy; W19.XXXA Unspecified fall, initial encounter
CPT/HCPCS: 36415; 70450; 71046; 72125; 73502; 80053; 82550; 82553; 83735; 84100; 84484; 85025; 96360; 99285

== ENCOUNTER 2018-10-27 21:45 | Inpatient (IN) | payer MEDICARE ==
--- NOTE | 2018-10-27 22:09 | ED ---
Altered Mental Status HPI - General Chief Complaint: Altered Mental Status Stated Complaint: possible Sepsis Time Seen by Provider: 10/27/18 21:46 Source: EMS Mode of arrival: EMS Limitations: altered mental status - History of Present Illness Initial Comments: This patient is an 88-year-old man brought in to be evaluated for fever and altered mental status. The patient lives at home and reportedly had called a family member and then said that he felt he was dying and then would not speak anymore on the phone. Family phoned EMS. When they arrived there they found the patient lying in a hospital bed and his past for such or with urine. Patient was alert but oriented only to person. EMS started an IV line and started administering fluid and oxygen. His temperature at home was reported to be 103.4. During the transportation here, the patient became more alert and now oriented. When I interview the patient, he only states that he was having generalized weakness and was not able to get out of his bed this evening. He denies any symptoms of infection. He does acknowledge having a cough but states that he always has a cough. MD Complaint: altered mental status -: hour(s) Severity: moderate Associated Symptoms: fever/chills, weakness (Generalized) Treatments Prior to Arrival: IV fluid, oxygen - Related Data Home Medications Medication Instructions Recorded Confirmed rOPINIRole HCL [Requip] 0.25 mg PO HS 08/27/16 10/27/18 Acetaminophen Tab [Tylenol] 500 mg PO Q4H PRN 01/24/18 10/27/18 Cholecalciferol [Vitamin D3] 1,000 unit PO DAILY 01/24/18 10/27/18 Ferrous Sulfate [Iron (65 MG 325 mg PO DAILY 01/24/18 10/27/18 Elemental)] amLODIPine [Norvasc] 5 mg PO DAILY 01/24/18 10/27/18 Garlic 1 tab PO DAILY 10/27/18 10/27/18 Insulin Glargine [Lantus] 10 unit SQ BID 10/27/18 10/27/18 Previous Rx's Medication Instructions Recorded Apixaban [Eliquis] 2.5 mg PO BID #60 tablet 09/01/16 Aspirin 81 mg PO DAILY chew 09/01/16 Atenolol [Tenormin] 25 mg PO DAILY #30 tab 09/01/16 Atorvastatin [Lipitor] 40 mg PO DAILY tab 09/01/16 Nitroglycerin Sl Tabs [Nitrostat] 0.4 mg SUBLINGUAL Q5M PRN #0 tab 09/01/16 Omeprazole [PriLOSEC] 20 mg PO AC-BID #1 cap 01/29/18 Allergies Allergy/AdvReac Type Severity Reaction Status Date / Time No Known Allergies Allergy Verified 10/27/18 22:34 Review of Systems ROS Statement: Those systems with pertinent positive or pertinent negative responses have been documented in the HPI. ROS Other: All systems not noted in ROS Statement are negative. Constitutional: Reports: fever, weakness (Generalized) Eyes: Denies: vision change ENT: Denies: ear pain, congestion Respiratory: Reports: cough. Denies: dyspnea Cardiovascular: Denies: chest pain, syncope Gastrointestinal: Denies: abdominal pain, vomiting, diarrhea Genitourinary: Denies: dysuria, hematuria Musculoskeletal: Denies: back pain Neurological: Denies: headache, weakness, numbness Past Medical History Past Medical History: Diabetes Mellitus, Hypertension, Myocardial Infarction ([place] ), Renal Disease Additional Past Medical History / Comment(s): IDDM type II, RLS, sleep disturbance, "chokes easily", past medical hx documents renal disease stage III , COPD and CHF but pt does not recall these, Last Myocardial Infarction Date:: unknown History of Any Multi-Drug Resistant Organisms: None Reported Past Surgical History: Orthopedic Surgery Additional Past Surgical History / Comment(s): Hip [place] [address] Turpin, bilateral cataract removal and intraocular lens implants. Past Anesthesia/Blood Transfusion Reactions: No Reported Reaction Past Psychological History: No Psychological Hx Reported Smoking Status: Never smoker Past Alcohol Use History: None Reported Past Drug Use History: None Reported - Past Family History Father Family Medical History: COPD Mother Family Medical History: No Reported History General Exam Limitations: altered mental status General appearance: alert, in no apparent distress Head exam: Present: atraumatic, normocephalic Eye exam: Present: normal appearance. Absent: scleral icterus, conjunctival injection ENT exam: Present: mucous membranes dry Neck exam: Present: normal inspection Respiratory exam: Present: normal lung sounds bilaterally. Absent: respiratory distress, wheezes, rales, rhonchi, stridor, accessory muscle use Cardiovascular Exam: Present: regular rate (Rate approximately 96 at my exam), irregular rhythm, normal heart sounds. Absent: systolic murmur, diastolic murmur, rubs, gallop GI/Abdominal exam: Present: soft. Absent: distended, tenderness, guarding, rebound, rigid, mass Extremities exam: Present: normal inspection, normal capillary refill. Absent: pedal edema, calf tenderness Back exam: Present: normal inspection. Absent: CVA tenderness (R), CVA tenderness (L) Neurological exam: Present: alert Skin exam: Present: warm, dry, intact, normal color. Absent: rash Course Vital Signs 10/27/18 10/27/18 10/27/18 21:47 22:00 22:30 Temperature 99.8 F H Pulse Rate 103 H 90 94 Respiratory 36 H 32 H 30 H Rate Blood Pressure 151/84 151/84 143/84 O2 Sat by Pulse 100 100 97 Oximetry 10/27/18 10/27/18 10/28/18 23:00 23:30 00:00 Temperature Pulse Rate 77 90 77 Respiratory 15 16 16 Rate Blood Pressure 144/82 136/77 153/91 O2 Sat by Pulse 98 96 99 Oximetry Medical Decision Making - Lab Data Result diagrams: 10/27/18 22:17 10/27/18 22:17 Lab Results 10/27/18 10/27/18 10/27/18 Range/Units 22:17 22:17 22:17 WBC 15.2 H (3.8-10.6) k/uL RBC 2.60 L (4.30-5.90) m/uL Hgb 7.9 L (13.0-17.5) gm/dL Hct 24.9 L (39.0-53.0) % MCV 95.9 (80.0-100.0) fL MCH 30.2 (25.0-35.0) pg MCHC 31.5 (31.0-37.0) g/dL RDW 19.1 H (11.5-15.5) % Plt Count 249 (150-450) k/uL Neutrophils % 91 % Lymphocytes % 3 % Monocytes % 5 % Eosinophils % 1 % Basophils % 0 % Neutrophils # 13.8 H (1.3-7.7) k/uL Lymphocytes # 0.5 L (1.0-4.8) k/uL Monocytes # 0.7 (0-1.0) k/uL Eosinophils # 0.1 (0-0.7) k/uL Basophils # 0.1 (0-0.2) k/uL Hypochromasia Slight Anisocytosis Slight Macrocytosis Slight PT (9.0-12.0) sec INR (<1.2) APTT (22.0-30.0) sec Sodium 144 (137-145) mmol/L Potassium 4.6 (3.5-5.1) mmol/L Chloride 113 H (98-107) mmol/L Carbon Dioxide 24 (22-30) mmol/L Anion Gap 7 mmol/L BUN 29 H (9-20) mg/dL Creatinine 2.03 H (0.66-1.25) mg/dL Est GFR (CKD-EPI)AfAm 33 (>60 ml/min/1.73 sqM) Est GFR (CKD-EPI)NonAf 28 (>60 ml/min/1.73 sqM) Glucose 181 H (74-99) mg/dL Plasma Lactic Acid Maulik 1.3 (0.7-2.0) mmol/L Calcium 9.0 (8.4-10.2) mg/dL Total Bilirubin 1.0 (0.2-1.3) mg/dL AST 19 (17-59) U/L ALT 20 L (21-72) U/L Alkaline Phosphatase 80 (38-126) U/L Troponin I (0.000-0.034) ng/mL Total Protein 6.4 (6.3-8.2) g/dL Albumin 3.3 L (3.5-5.0) g/dL Urine Color Urine Appearance (Clear) Urine pH (5.0-8.0) Ur Specific [place] (1.001-1.035) Urine Protein (Negative) Urine Glucose (UA) (Negative) Urine Ketones (Negative) Urine Blood (Negative) Urine Nitrite (Negative) Urine Bilirubin (Negative) Urine Urobilinogen (<2.0) mg/dL Ur Leukocyte Esterase (Negative) Urine RBC (0-5) /hpf Urine WBC (0-5) /hpf Urine Mucus (None) /hpf 10/27/18 10/27/18 10/27/18 Range/Units 22:17 22:17 22:50 WBC (3.8-10.6) k/uL RBC (4.30-5.90) m/uL Hgb (13.0-17.5) gm/dL Hct (39.0-53.0) % MCV (80.0-100.0) fL MCH (25.0-35.0) pg MCHC (31.0-37.0) g/dL RDW (11.5-15.5) % Plt Count (150-450) k/uL Neutrophils % % Lymphocytes % % Monocytes % % Eosinophils % % Basophils % % Neutrophils # (1.3-7.7) k/uL Lymphocytes # (1.0-4.8) k/uL Monocytes # (0-1.0) k/uL Eosinophils # (0-0.7) k/uL Basophils # (0-0.2) k/uL Hypochromasia Anisocytosis Macrocytosis PT 12.6 H (9.0-12.0) sec INR 1.2 H (<1.2) APTT 32.9 H (22.0-30.0) sec Sodium (137-145) mmol/L Potassium (3.5-5.1) mmol/L Chloride (98-107) mmol/L Carbon Dioxide (22-30) mmol/L Anion Gap mmol/L BUN (9-20) mg/dL Creatinine (0.66-1.25) mg/dL Est GFR (CKD-EPI)AfAm (>60 ml/min/1.73 sqM) Est GFR (CKD-EPI)NonAf (>60 ml/min/1.73 sqM) Glucose (74-99) mg/dL Plasma Lactic Acid Maulik (0.7-2.0) mmol/L Calcium (8.4-10.2) mg/dL Total Bilirubin (0.2-1.3) mg/dL AST (17-59) U/L ALT (21-72) U/L Alkaline Phosphatase (38-126) U/L Troponin I 0.071 H* (0.000-0.034) ng/mL Total Protein (6.3-8.2) g/dL Albumin (3.5-5.0) g/dL Urine Color Light Yellow Urine Appearance Clear (Clear) Urine pH 6.0 (5.0-8.0) Ur Specific [place] 1.011 (1.001-1.035) Urine Protein Trace H (Negative) Urine Glucose (UA) 2+ H (Negative) Urine Ketones Negative (Negative) Urine Blood Small H (Negative) Urine Nitrite Negative (Negative) Urine Bilirubin Negative (Negative) Urine Urobilinogen <2.0 (<2.0) mg/dL Ur Leukocyte Esterase Negative (Negative) Urine RBC 3 (0-5) /hpf Urine WBC 1 (0-5) /hpf Urine Mucus Rare H (None) /hpf - EKG Data -: EKG Interpreted by Me EKG shows normal: axis (Normal), intervals (Normal), QRS complexes (There appears to be old inferior infarct, based on Q waves in leads 3 and aVF), ST-T waves (Normal) Rate: normal (Rate approximately 85 bpm) Interpretation: other (The underlying rhythm appears to be atrial fibrillation.) Disposition Clinical Impression: Pneumonia Disposition: ADMITTED IP TO THIS [facility] Condition: Fair Is patient prescribed a controlled substance at d/c from ED?: No Referrals: Jaguar Casas MD [Primary Care Provider] - 1-2 days
[2018-10-27 22:40] LABS: Anisocytosis Slight; Basophils # (A) 0.1 k/uL (0-0.2); Basophils % (A) 0 %; Eosinophils # (A) 0.1 k/uL (0-0.7); Eosinophils % (A) 1 %; HCT 24.9 % (39.0-53.0); HGB 7.9 gm/dL (13.0-17.5); Hypochromasia Slight; Lymphocytes # (A) 0.5 k/uL (1.0-4.8); Lymphocytes % (A) 3 %; MCH 30.2 pg (25.0-35.0); MCHC 31.5 g/dL (31.0-37.0); MCV 95.9 fL (80.0-100.0); Macrocytosis Slight; Mean Platelet Volume 8.4; Monocytes # (A) 0.7 k/uL (0-1.0); Monocytes % (A) 5 %; Neutrophils # (A) 13.8 k/uL (1.3-7.7); Neutrophils % (A) 91 %; Platelet Count 249 k/uL (150-450); RDW 19.1 % (11.5-15.5); WBC 15.2 k/uL (3.8-10.6)
[2018-10-27 22:51] LABS: Albumin 3.3 g/dL (3.5-5.0); Potassium 4.6 mmol/L (3.5-5.1); Total Protein 6.4 g/dL (6.3-8.2)
[2018-10-27 22:52] LABS: INR 1.2 (<1.2); Partial Thromboplastin Time 32.9 sec (22.0-30.0); Prothrombin Time 12.6 sec (9.0-12.0)
--- NOTE | 2018-10-27 23:10 | XR ---
EXAMINATION TYPE: XR chest 1V portable DATE OF EXAM: 10/27/2018 COMPARISON: 03/06/2018 HISTORY: Fever TECHNIQUE: Single frontal view of the chest is obtained. FINDINGS: Single view shows blunting of right costophrenic angle. There is no gross heart failure. H eart is probably enlarged. There are chest leads. Mediastinum is normal. IMPRESSION: There is new right lower lobe infiltrate and pleural fluid compared to old exam. No elia s heart failure.
[2018-10-27 23:11] LABS: Appearance,Urine Clear (Clear); Bilirubin,Urine Negative (Negative); Blood,Urine Small (Negative); Color,Urine Light Yellow; Glucose,Urine (UA) 2+ (Negative); Ketones,Urine Negative (Negative); Leukocyte Esterase,Urine Negative (Negative); Mucus,Urine Rare /hpf; Nitrite,Urine Negative (Negative); Protein,Urine Trace (Negative); RBC,Urine 3 /hpf (0-5); Specific Gravity,Urine 1.011 (1.001-1.035); Urobilinogen,Urine <2.0 mg/dL (<2.0); WBC,Urine 1 /hpf (0-5)
[2018-10-27] MEDS ORDERED: LEVOFLOXACIN 750MG-D5W PMX 750 MG in DEXTROSE/WATER 1 150ML.BAG IVPB STA (23:52)
[2018-10-27] MEDS ORDERED: PIPERACILLIN-TAZOBACTAM 3.375 GM in SODIUM CHLORIDE 0.9% 100 ML IVPB STA (23:52)
[2018-10-28] MEDS ORDERED: ALBUTEROL NEBULIZED 2.5 MG/3 ML INHALATION PRN (00:28)
[2018-10-28] MEDS ORDERED: PNEUMONIA PROTOCOL UTILIZED 1 EACH MISC PO PRN (00:28)
[2018-10-28] MEDS ORDERED: ACETAMINOPHEN TAB 500 MG TAB PO PRN (00:30)
[2018-10-28] MEDS ORDERED: NITROGLYCERIN SL TABS 0.4 MG TAB SUBLINGUAL PRN (00:30)
[2018-10-28] MEDS: SODIUM CHLORIDE 0.9% 1,000 ML IV SCH ×2 (00:56→23:01)
[2018-10-28 06:21] LABS: Glucose,Whole Blood 188 mg/dL (75-99)
[2018-10-28] MEDS: INSULIN ASPART (NovoLOG) 100 UNIT/ML VIAL SQ SCH ×4 (06:30→21:31)
[2018-10-28] MEDS: CHOLECALCIFEROL 1,000 UNIT TAB PO SCH (09:06)
[2018-10-28] MEDS: ASPIRIN 81 MG PO SCH (09:06)
[2018-10-28] MEDS: PANTOPRAZOLE 40 MG TABLET PO SCH (09:07)
[2018-10-28] MEDS: ATENOLOL 25 MG TAB PO SCH (09:07)
[2018-10-28] MEDS: PIPERACILLIN-TAZOBACTAM 3.375 GM in SODIUM CHLORIDE 0.9% 100 ML IVPB SCH ×3 (09:07→23:00)
[2018-10-28] MEDS: amLODIPine 5 MG TAB PO SCH (09:07)
[2018-10-28] MEDS: APIXABAN 2.5 MG TABLET PO SCH ×2 (09:07→19:51)
[2018-10-28] MEDS: INSULIN DETEMIR (LEVEMIR) 100 UNIT/ML SYR SQ SCH ×2 (09:07→21:31)
[2018-10-28] MEDS: ATORVASTATIN 40 MG TAB PO SCH (09:07)
[2018-10-28] MEDS: FERROUS SULFATE 325 MG TAB PO SCH (09:07)
[2018-10-28 11:29] LABS: Glucose,Whole Blood 130 mg/dL (75-99)
--- NOTE | 2018-10-28 15:06 | HP ---
HISTORY AND PHYSICAL CHIEF COMPLAINT: Cough, difficulty breathing and fever. HISTORY OF PRESENT ILLNESS: This is another recent admission for this 88-year-old white male. He has diabetes mellitus. He lives alone, has been able to be fairly independent, but he is gradually weakening. Last year he was in a half-way for a month or so after an episode of being in the hospital. Started developing a URI with runny nose, sore throat, cough, and became grossly more short of breath and feverish and came to the emergency room where he was admitted with pneumonitis. REVIEW OF SYSTEMS: He denies any headaches, difficulty with vision, hearing, cough, hemoptysis, chest pain, pleurisy, syncope, orthopnea, PND, abdominal pain, vomiting, diarrhea, melena, hematochezia, jaundice, hematuria, frequency, urgency, arthralgias, etc. Past medical history, family history and personal and social histories are essentially unchanged from his recent admitting studies. He is allergic to STATINS and ZETIA. MEDICATIONS: Include atenolol, amlodipine, Carafate, omeprazole, Lantus, vitamin D, aspirin, Lipitor, Eliquis. He does not smoke or drink. PHYSICAL EXAMINATION: Blood pressure 158/68 with a pulse 64, respirations 14. He is afebrile. In general, he appeared to be slightly disheveled, in no acute distress. Skin color is normal, skin is warm, dry. Lymph nodes are not enlarged. Head, ears, eyes, nose, and throat were normal. Neck veins are not distended. Thyroid is enlarged. Chest demonstrates poor breath sounds with wheezes, rales and rhonchi bilaterally. Cardiac exam demonstrates what sounds like atrial fibrillation and the abdomen is soft, nontender without any visceromegaly or masses. Bowel sounds are present. Extremities are normal, neurological is intact. IMPRESSION: 1. Bronchial pneumonia. 2. Bronchitis. 3. Upper respiratory infection. 4. Hypertension. 5. Insulin-dependent diabetes mellitus. PLAN: 1. Bed rest. 2. IV fluids. 3. Treat for CAP. 4. PT and OT. 5. Consider discharge planning. MMODL / IJN: [id number] /
[2018-10-28 16:32] LABS: Hemoglobin A1C 6.2 % (4.0-6.0)
[2018-10-28 16:45] LABS: Glucose,Whole Blood 153 mg/dL (75-99)
[2018-10-28 21:20] LABS: Glucose,Whole Blood 209 mg/dL (75-99)
[2018-10-29 05:54] LABS: Glucose,Whole Blood 59 mg/dL (75-99)
[2018-10-29] MEDS: INSULIN ASPART (NovoLOG) 100 UNIT/ML VIAL SQ SCH ×4 (05:56→20:56)
[2018-10-29 06:22] LABS: Glucose,Whole Blood 64 mg/dL (75-99)
[2018-10-29 06:28] LABS: Glucose,Whole Blood 92 mg/dL (75-99)
[2018-10-29] MEDS: PIPERACILLIN-TAZOBACTAM 3.375 GM in SODIUM CHLORIDE 0.9% 100 ML IVPB SCH ×2 (08:43→15:08)
[2018-10-29] MEDS: INSULIN DETEMIR (LEVEMIR) 100 UNIT/ML SYR SQ SCH ×2 (08:45→20:57)
[2018-10-29] MEDS: APIXABAN 2.5 MG TABLET PO SCH ×2 (08:45→20:56)
[2018-10-29] MEDS: ATENOLOL 25 MG TAB PO SCH (08:45)
[2018-10-29] MEDS: amLODIPine 5 MG TAB PO SCH (08:45)
[2018-10-29] MEDS: PANTOPRAZOLE 40 MG TABLET PO SCH (08:45)
[2018-10-29] MEDS: ATORVASTATIN 40 MG TAB PO SCH (08:45)
[2018-10-29] MEDS: ASPIRIN 81 MG PO SCH (08:45)
[2018-10-29 09:27] LABS: Anisocytosis Slight; HCT 25.3 % (39.0-53.0); HGB 7.7 gm/dL (13.0-17.5); Hypochromasia Moderate; MCH 30.2 pg (25.0-35.0); MCHC 30.7 g/dL (31.0-37.0); MCV 98.4 fL (80.0-100.0); Macrocytosis Slight; Mean Platelet Volume 8.8; Platelet Count 259 k/uL (150-450); RBC 2.57 m/uL (4.30-5.90); RDW 18.9 % (11.5-15.5); WBC 12.7 k/uL (3.8-10.6)
[2018-10-29 09:46] LABS: Potassium 4.7 mmol/L (3.5-5.1)
[2018-10-29] MEDS: FERROUS SULFATE 325 MG TAB PO SCH (11:21)
[2018-10-29] MEDS: CHOLECALCIFEROL 1,000 UNIT TAB PO SCH (11:21)
[2018-10-29 11:41] LABS: Glucose,Whole Blood 134 mg/dL (75-99)
--- NOTE | 2018-10-29 12:10 | PN ---
PROGRESS NOTE CHIEF COMPLAINT: Pneumonitis. HISTORY OF PRESENT ILLNESS: This gentleman is doing fairly well. He does want to be a DNR and this has been ordered. Blood sugars are also slightly low. REVIEW OF SYSTEMS: He feels fine. He is very active. He wants to go home. PHYSICAL EXAM: He has very poor breath sounds on the left side with wheezing, rales and rhonchi throughout. Cardiac exam is unremarkable and the abdomen is soft, nontender. IMPRESSION: 1. Pneumonitis. 2. Low blood sugar. PLAN: 1. He requests to have his coat CODE STATUS changed to DNR and this was done. 2. Decrease Levemir from 10 units twice a day to once a day. 3. Continue with updrafts, IV fluids and antibiotics. MARIPOSA / BLAINEN: [id number] /
--- NOTE | 2018-10-29 13:47 | XR ---
EXAMINATION TYPE: XR chest 2V DATE OF EXAM: 10/29/2018 COMPARISON: Prior chest x-ray 10/27/2018 HISTORY: Pneumonia TECHNIQUE: Frontal and lateral views of the chest are obtained. FINDINGS: There is blunting of the right costophrenic angle, patchy bibasilar density. Lung volumes are low. There are overlying cardiac leads. Heart size is stable. No evident pneumothorax. Arthropath y noted in the shoulders. Interstitium appears mildly increased. IMPRESSION: There is some improvement in aeration as compared to prior exam. Difficult to exclude ba silar pneumonia, minimal effusion.
[2018-10-29 17:16] LABS: Glucose,Whole Blood 124 mg/dL (75-99)
[2018-10-29 20:10] LABS: Glucose,Whole Blood 241 mg/dL (75-99)
[2018-10-30] MEDS ORDERED: LEVOFLOXACIN 750MG-D5W PMX 750 MG in DEXTROSE/WATER 1 150ML.BAG IVPB SCH
[2018-10-30] MEDS: SODIUM CHLORIDE 0.9% 1,000 ML IV SCH (01:57)
[2018-10-30] MEDS: PIPERACILLIN-TAZOBACTAM 3.375 GM in SODIUM CHLORIDE 0.9% 100 ML IVPB SCH ×4 (02:10→23:38)
[2018-10-30 06:55] LABS: Glucose,Whole Blood 77 mg/dL (75-99)
[2018-10-30] MEDS: INSULIN ASPART (NovoLOG) 100 UNIT/ML VIAL SQ SCH ×4 (07:38→21:45)
[2018-10-30] MEDS: ATORVASTATIN 40 MG TAB PO SCH (08:52)
[2018-10-30] MEDS: APIXABAN 2.5 MG TABLET PO SCH ×2 (08:52→21:45)
[2018-10-30] MEDS: ATENOLOL 25 MG TAB PO SCH (08:52)
[2018-10-30] MEDS: CHOLECALCIFEROL 1,000 UNIT TAB PO SCH (08:52)
[2018-10-30] MEDS: amLODIPine 5 MG TAB PO SCH (08:52)
[2018-10-30] MEDS: PANTOPRAZOLE 40 MG TABLET PO SCH (08:52)
[2018-10-30] MEDS: FERROUS SULFATE 325 MG TAB PO SCH (08:52)
[2018-10-30] MEDS: ASPIRIN 81 MG PO SCH (08:54)
[2018-10-30 11:37] LABS: Glucose,Whole Blood 104 mg/dL (75-99)
[2018-10-30 12:48] LABS: Anisocytosis Slight; Basophils # (A) 0.1 k/uL (0-0.2); Basophils % (A) 1 %; Eosinophils # (A) 0.6 k/uL (0-0.7); Eosinophils % (A) 6 %; HCT 25.5 % (39.0-53.0); HGB 7.9 gm/dL (13.0-17.5); Hypochromasia Moderate; Lymphocytes # (A) 1.2 k/uL (1.0-4.8); Lymphocytes % (A) 12 %; MCH 30.2 pg (25.0-35.0); MCV 97.6 fL (80.0-100.0); Macrocytosis Slight; Mean Platelet Volume 8.2; Monocytes # (A) 0.6 k/uL (0-1.0); Monocytes % (A) 6 %; Neutrophils # (A) 7.1 k/uL (1.3-7.7); Neutrophils % (A) 74 %; Platelet Count 272 k/uL (150-450); RBC 2.61 m/uL (4.30-5.90); RDW 18.8 % (11.5-15.5); WBC 9.6 k/uL (3.8-10.6)
[2018-10-30 12:50] LABS: Albumin 3.1 g/dL (3.5-5.0); Potassium 4.4 mmol/L (3.5-5.1); Total Bilirubin 0.9 mg/dL (0.2-1.3)
--- NOTE | 2018-10-30 14:25 | XR ---
EXAMINATION TYPE: XR chest 2V DATE OF EXAM: 10/30/2018 COMPARISON: Prior chest x-ray 10/29/2017 HISTORY: Aspiration TECHNIQUE: Frontal and lateral views of the chest are obtained on 3 images. FINDINGS: Patchy basilar increased density is noted. Prominent lung volumes suggest underlying COPD. Heart appears enlarged. No pneumothorax. No sizable effusion. Bones are stable. IMPRESSION: Correlate to exclude basilar pneumonia versus atelectasis.
--- NOTE | 2018-10-30 15:08 | PN ---
PROGRESS NOTE DATE OF SERVICE: 10/30/2018 CHIEF COMPLAINT: Pneumonitis. HISTORY OF PRESENT ILLNESS: This patient is doing fairly well. His blood sugars were a little bit low yesterday. He is feeling a lot better. Apparently during the night he had an episodes of severe coughing with spasm and then vomited. He is not having any increased shortness of breath today and he feels fine. He had no fever or chills. PHYSICAL EXAM: Color is fairly good and hydration is adequate. Chest still demonstrates decreased breath sounds, wheezing, rales and rhonchi scattered about. Cardiac exam is normal. Abdomen is soft, nontender. IMPRESSION: 1. Pneumonitis. 2. Diabetes mellitus. 3. Osteoarthritis. PLAN: 1. Continue with current program. 2. Repeat chest x-ray to rule out any evidence of deterioration or aspiration. 3. Repeat laboratory studies. MMODL / IJN: [id number] /
[2018-10-30 17:05] LABS: Glucose,Whole Blood 139 mg/dL (75-99)
[2018-10-30 20:21] LABS: Glucose,Whole Blood 205 mg/dL (75-99)
[2018-10-30] MEDS: INSULIN DETEMIR (LEVEMIR) 100 UNIT/ML SYR SQ SCH (21:46)
[2018-10-31] MEDS: SODIUM CHLORIDE 0.9% 1,000 ML IV SCH (01:39)
[2018-10-31 06:59] LABS: Glucose,Whole Blood 94 mg/dL (75-99)
[2018-10-31] MEDS: PIPERACILLIN-TAZOBACTAM 3.375 GM in SODIUM CHLORIDE 0.9% 100 ML IVPB SCH ×3 (08:49→23:39)
[2018-10-31] MEDS: INSULIN ASPART (NovoLOG) 100 UNIT/ML VIAL SQ SCH ×4 (08:51→21:11)
[2018-10-31] MEDS: amLODIPine 5 MG TAB PO SCH (09:50)
[2018-10-31] MEDS: APIXABAN 2.5 MG TABLET PO SCH ×2 (09:50→21:16)
[2018-10-31] MEDS: ASPIRIN 81 MG PO SCH (09:50)
[2018-10-31] MEDS: ATENOLOL 25 MG TAB PO SCH (09:51)
[2018-10-31] MEDS: ATORVASTATIN 40 MG TAB PO SCH (09:51)
[2018-10-31] MEDS: PANTOPRAZOLE 40 MG TABLET PO SCH (09:51)
[2018-10-31 11:19] LABS: Glucose,Whole Blood 103 mg/dL (75-99)
--- NOTE | 2018-10-31 11:28 | CDI ---
Documentation Clarification Form Date: 10/31/2018 10:15:00 AM From: Lorrie Davies RN, CCDS Admit Date: 10/28/2018 12:00:00 AM Patient Name: James Mccarty Visit Number: [id number] Discharge Date: ATTENTION: The Clinical Documentation Specialists (CDI) and [facility] Coding Staff appreciate your assistance in clarifying documentation. Please respond to the clarification below the line at the bottom and electronically sign. The CDI & [facility] Coding staff will review the response and follow-up if needed. Please note: Queries are made part of the Legal Health Record. If you have any questions, please contact the author of this message via ITS. Dr. Casas Atrial Fibrillation is documented in the H & P History/Risk Factors: 88 year old male presents to the ED for a cough with difficulty breathing and fever. Med/HX HTN; AR, Renal disease, DM Clinical Indicators: EKG/ Atrial fibrillation Treatment: Home meds Norvasc, Tenormin Consults: None In your professional opinion, can you please clarify the type of Atrial Fibrillation, if known? Chronic/Permanent Paroxysmal Persistent Other, please specify Unable to determine (Last Revision: December 2017) (Last Revision: December 2017) MTDD
[2018-10-31] MEDS: CHOLECALCIFEROL 1,000 UNIT TAB PO SCH (12:44)
[2018-10-31] MEDS: FERROUS SULFATE 325 MG TAB PO SCH (12:44)
[2018-10-31 17:15] LABS: Glucose,Whole Blood 182 mg/dL (75-99)
--- NOTE | 2018-10-31 19:24 | PN ---
PROGRESS NOTE CHIEF COMPLAINT: Pneumonitis. HISTORY OF PRESENT ILLNESS: This gentleman is doing a bit better. Less congested, less short of breath. PHYSICAL EXAM: He still has scattered rales and rhonchi, but they are improving. Chest is more clear. Cardiac exam is normal. Abdomen is soft, nontender. IMPRESSION: 1. Pneumonitis. 2. Diabetes. PLAN: Probably one more day in the hospital and we will try to discharge him tomorrow. His family would like him to go back to the shelter, but he refuses and he can probably do well at home with help. MMODL / IJN: [id number] /
[2018-10-31 19:58] LABS: Glucose,Whole Blood 205 mg/dL (75-99)
[2018-10-31] MEDS: INSULIN DETEMIR (LEVEMIR) 100 UNIT/ML SYR SQ SCH (21:11)
[2018-11-01] MEDS ORDERED: LEVOFLOXACIN 750 MG TAB PO SCH
[2018-11-01] MEDS: SODIUM CHLORIDE 0.9% 1,000 ML IV SCH (00:29)
[2018-11-01 07:30] LABS: Glucose,Whole Blood 74 mg/dL (75-99)
[2018-11-01] MEDS: INSULIN ASPART (NovoLOG) 100 UNIT/ML VIAL SQ SCH ×2 (07:33→13:15)
[2018-11-01] MEDS: PIPERACILLIN-TAZOBACTAM 3.375 GM in SODIUM CHLORIDE 0.9% 100 ML IVPB SCH (07:42)
[2018-11-01] MEDS: ASPIRIN 81 MG PO SCH (08:19)
[2018-11-01] MEDS: APIXABAN 2.5 MG TABLET PO SCH (08:19)
[2018-11-01] MEDS: PANTOPRAZOLE 40 MG TABLET PO SCH (08:19)
[2018-11-01] MEDS: ATORVASTATIN 40 MG TAB PO SCH (08:19)
[2018-11-01] MEDS: ATENOLOL 25 MG TAB PO SCH (09:54)
[2018-11-01] MEDS: amLODIPine 5 MG TAB PO SCH (09:54)
[2018-11-01 11:21] LABS: Glucose,Whole Blood 142 mg/dL (75-99)
[2018-11-01 11:58] VITALS: BP 126/72; PULSE 97; RESP 22; TEMP 97.7
[2018-11-01] MEDS ORDERED: CEPHALEXIN 250 MG CAP PO SCH (13:00)
[2018-11-01] MEDS: FERROUS SULFATE 325 MG TAB PO SCH (13:10)
[2018-11-01] MEDS: CHOLECALCIFEROL 1,000 UNIT TAB PO SCH (13:10)
--- NOTE | 2018-11-01 17:19 | DS ---
DISCHARGE SUMMARY DATE OF SERVICE: 11/01/2018 CHIEF COMPLAINT: Cough, fever and shortness of breath and pneumonitis. HISTORY OF PRESENT ILLNESS AND PHYSICAL EXAM: Details of this man's history and physical can be found in the initial workup. LABORATORY STUDIES: While he was the hospital, he had laboratory studies, details of which can be found in the laboratory section of his chart. COURSE IN HOSPITAL: After admission, he was placed on bedrest and started on intravenous fluids, updrafts and antibiotics. Over the next several days, his chest became more clear and he was up and about. He was back to his usual diet and activity. It was felt he could go home on . FINAL DIAGNOSES: 1. Community-acquired bronchopneumonia. 2. Hypertension. 3. Insulin-dependent diabetes mellitus. OPERATIONS: None. CONSULTATION: None. He is improved. MARIPOSA / JOANNE: [id number] /
[2018-11-01] MEDS ORDERED: LEVOFLOXACIN 250 MG TAB PO SCH (21:00)
--- NOTE | 2018-11-09 10:00 | MISC ---
MISCELLANOUS REPORT Atrial fibrillation is chronic. MMODL / IJN: [id number] /
--- NOTE | 2018-11-09 15:51 | MISC ---
MISCELLANOUS REPORT Query on James Mccarty, question is regarding atrial fibrillation, it is chronic and permanent. MMODL / IJN: [id number] /
== END 2018-11-01 16:20 | disposition home health service (06) | DRG 194 ==
LOC: EC 21:45 → 3SCARD 10-28 00:28 → 3NMEDONC 10-29 16:31
PROVIDERS: ADMIT Family Medicine; ATTEND Family Medicine
DX: J18.0 Bronchopneumonia, unspecified organism (principal); I13.0 Hypertensive heart and chronic kidney disease with heart failure and stage 1 through stage 4 chronic kidney disease, or unspecified chronic kidney disease; J44.0 Chronic obstructive pulmonary disease with (acute) lower respiratory infection; G25.81 Restless legs syndrome; I50.9 Heart failure, unspecified; N18.3 Chronic kidney disease, stage 3 (moderate); E11.22 Type 2 diabetes mellitus with diabetic chronic kidney disease; M19.90 Unspecified osteoarthritis, unspecified site; Z66 Do not resuscitate; Z96.1 Presence of intraocular lens; Z79.01 Long term (current) use of anticoagulants; I48.2 Chronic atrial fibrillation; Z96.649 Presence of unspecified artificial hip joint; Z79.4 Long term (current) use of insulin; Z79.82 Long term (current) use of aspirin; Z82.5 Family history of asthma and other chronic lower respiratory diseases; Z98.42 Cataract extraction status, left eye; Z98.41 Cataract extraction status, right eye; Z79.899 Other long term (current) drug therapy; Z88.8 Allergy status to other drugs, medicaments and biological substances; I25.2 Old myocardial infarction
CPT/HCPCS: 36415; 71045; 71046; 80048; 80053; 81001; 82272; 83036; 83605; 84484; 85025; 85027; 85610; 85730; 87040; 87070; 87086; 87205; 93005; 96365; 99285

== ENCOUNTER 2019-07-03 18:08 | Inpatient (IN) | payer MEDICARE ==
[2019-07-03 19:14] LABS: Anisocytosis Moderate; Basophils # (A) 0.1 k/uL (0-0.2); Basophils % (A) 1 %; Eosinophils # (A) 0.2 k/uL (0-0.7); Eosinophils % (A) 2 %; Hypochromasia Moderate; Lymphocytes # (A) 1.9 k/uL (1.0-4.8); Lymphocytes % (A) 17 %; MCH 29.5 pg (25.0-35.0); MCHC 30.7 g/dL (31.0-37.0); MCV 96.1 fL (80.0-100.0); Macrocytosis Slight; Mean Platelet Volume 7.2; Monocytes # (A) 0.7 k/uL (0-1.0); Monocytes % (A) 7 %; Neutrophils # (A) 7.8 k/uL (1.3-7.7); Neutrophils % (A) 71 %; Platelet Count 237 k/uL (150-450); RDW 21.4 % (11.5-15.5); WBC 10.9 k/uL (3.8-10.6)
[2019-07-03 19:17] LABS: HCT 17.3 % (39.0-53.0); HGB 5.3 gm/dL (13.0-17.5)
[2019-07-03 19:20] LABS: Albumin 3.1 g/dL (3.5-5.0); Bilirubin, Delta 0.3 mg/dL (0.0-0.2); Bilirubin,Unconjugated 0.4 mg/dL (0.0-1.1); Calcium 8.5 mg/dL (8.4-10.2); INR 1.3 (<1.2); Potassium 4.8 mmol/L (3.5-5.1); Prothrombin Time 13.2 sec (9.0-12.0); Total Bilirubin 0.7 mg/dL (0.2-1.3); Total Protein 6.2 g/dL (6.3-8.2)
[2019-07-03] MEDS: PANTOPRAZOLE 40 MG/10 ML VIAL IVP SCH (20:03)
--- NOTE | 2019-07-03 20:03 | XR ---
EXAMINATION TYPE: XR chest 2V DATE OF EXAM: 07/03/2019 COMPARISON: 10/30/2018 HISTORY: Weakness and cough TECHNIQUE: Frontal and lateral views of the chest are obtained. FINDINGS: There is some atelectasis at the lung bases. There is no heart failure. There is poor insp iration. There are chest leads. There is slight blunting of the costophrenic angles. IMPRESSION: Small pleural effusions and basilar atelectasis unchanged. No gross heart failure.
[2019-07-03] MEDS ORDERED: FUROSEMIDE 10 MG/ML 4 ML VIAL IV STA (20:40)
--- NOTE | 2019-07-03 20:52 | ED ---
General Adult HPI - General Chief complaint: Weakness Stated complaint: GENERALIZED WEAKNESS Time Seen by Provider: 07/03/19 18:22 Source: patient Mode of arrival: EMS Limitations: no limitations - History of Present Illness Initial comments: 88-year-old male presenting with generalized weakness and GI bleed. Patient is unable to tell me how many days he has been having red stools. Family seen that he's been having worsening lower extremity edema and was recently placed on an antibiotic for cellulitis by his primary care physician for this. Patient admits to generalized weakness and increased shortness of breath. Denies any history of previous GI bleeds, colonoscopy, E. Denies any abdominal pain. Patient is unsure if he takes a diuretic. He denies any chest pain. Patient is on Eliquis for Afib - Related Data Home Medications Medication Instructions Recorded Confirmed rOPINIRole HCL [Requip] 0.25 mg PO HS 08/27/16 07/03/19 Cholecalciferol [Vitamin D3 (25 1,000 unit PO DAILY 01/24/18 07/03/19 Mcg = 1000 Iu)] Ferrous Sulfate [Iron (65 MG 325 mg PO DAILY 01/24/18 07/03/19 Elemental)] Garlic 1 tab PO DAILY 10/27/18 07/03/19 Insulin Glargine [Lantus] 20 unit SQ BID 10/27/18 07/03/19 Cephalexin [Keflex] 500 mg PO QID 07/03/19 07/03/19 Mupirocin 2% Oint [Bactroban 2% 1 applic TOPICAL BID 07/03/19 07/03/19 Oint] Sucralfate [Carafate] 1 gm PO ACHS 07/03/19 07/03/19 amLODIPine [Norvasc] 2.5 mg PO DAILY 07/03/19 07/03/19 Previous Rx's Medication Instructions Recorded Apixaban [Eliquis] 2.5 mg PO BID #60 tablet 09/01/16 Aspirin 81 mg PO DAILY chew 09/01/16 Atenolol [Tenormin] 25 mg PO DAILY #30 tab 09/01/16 Atorvastatin [Lipitor] 40 mg PO DAILY tab 09/01/16 Nitroglycerin Sl Tabs [Nitrostat] 0.4 mg SUBLINGUAL Q5M PRN #0 tab 12/09/16 Omeprazole [PriLOSEC] 20 mg PO AC-BID #1 cap 01/29/18 Allergies Allergy/AdvReac Type Severity Reaction Status Date / Time No Known Allergies Allergy Verified 07/03/19 20:33 Review of Systems ROS Statement: Those systems with pertinent positive or pertinent negative responses have been documented in the HPI. Review of Systems Constitutional: Denies fever, chills. Positive generalized weakness Eyes: Denies change in vision, Denies pain Ears, nose, mouth, throat: Denies headaches, Denies sore throat Cardiovascular: Denies chest pain. Denies palpitations Respiratory: Positive shortness of breath, Denies cough Gastrointestinal: Denies abdominal pain. Denies nausea, vomiting, diarrhea. Positive GI bleed Genitourinary: Denies hematuria, Denies infections Musculoskeletal: Denies pain, Denies swelling Integumentary: Denies rash Neurological: Denies headache, focal weakness, focal numbness Psychiatric: Denies anxiety, Denies depression Hematologic/Lymphatic: Denies easy bleeding or bruising ROS Other: All systems not noted in ROS Statement are negative. Past Medical History Past Medical History: Atrial Fibrillation, Heart Failure, Diabetes Mellitus, Hypertension, Myocardial Infarction ([place]), Renal Disease Additional Past Medical History / Comment(s): IDDM type II, RLS, sleep disturban ce, "chokes easily", past medical hx documents renal disease stage III, COPD and CHF but pt does not recall these, Last Myocardial Infarction Date:: unknown History of Any Multi-Drug Resistant Organisms: None Reported Past Surgical History: Orthopedic Surgery Additional Past Surgical History / Comment(s): Hip [place] [address] Turpin, bilateral cataract removal and intraocular lens implants. Past Anesthesia/Blood Transfusion Reactions: No Reported Reaction Past Psychological History: No Psychological Hx Reported Smoking Status: Never smoker Past Alcohol Use History: None Reported Past Drug Use History: None Reported - Past Family History Father Family Medical History: COPD Mother Family Medical History: No Reported History General Exam - General Exam Comments Initial Comments: General: Awake, alert, No acute Distress HENT: Normocephalic. Atraumatic Eyes: PERRL. EOMI. No scleral icterus. No injected conjunctiva Neck: Full ROM Chest/Lungs: Bibasilar rales. Tachypnea Cardiac: Regular regular No murmurs or rubs Abdomen/GI: Soft, nontender, nondistended. No rebound, guarding, or rigidity. Musculoskeletal: Full ROM Skin: Warm, dry, intact. Pallor : Melanotic stool. Neurologic: A/Ox3, no weakness, no sensory deficit, no abnormal gait, no coordination deficit Limitations: no limitations Course Vital Signs 07/03/19 07/03/19 07/03/19 18:16 20:46 20:56 Temperature 97.7 F 98.1 F 98.0 F Pulse Rate 100 86 98 Respiratory 18 18 18 Rate Blood Pressure 123/80 105/58 106/63 O2 Sat by Pulse 99 100 Oximetry 07/03/19 07/03/19 07/03/19 21:26 22:51 23:08 Temperature 98.0 F 97.9 F 98.2 F Pulse Rate 92 98 93 Respiratory 18 18 16 Rate Blood Pressure 99/60 118/59 111/60 O2 Sat by Pulse 99 100 100 Oximetry 07/03/19 23:20 Temperature 98.0 F Pulse Rate 82 Respiratory 18 Rate Blood Pressure 113/60 O2 Sat by Pulse 98 Oximetry Medical Decision Making - Medical Decision Making 88-year-old male presenting with weakness and GI bleed. Initial exam the patient is awake, alert, no acute distress. VSS. EKG shows atrial fibrillation at a rate of 93 bpm. Patient found have a hemoglobin of 5.3. He was agreeable to blood transfusion. 40 mg of Lasix IV was ordered between transfusions as the patient has CHF with pleural effusions and lower extremity swelling. Denies any current abdominal pain. Patient is on eliquis however on exam patient is not hemorrhaging, vital signs are stable, and patient is in no distress. Will hold on giving PCC or FFP. I spoke with Dr. Casas who is agreeable to admission with GI on consult. - Lab Data Result diagrams: 07/04/19 03:02 07/03/19 18:53 Lab Results 07/03/19 07/03/19 07/03/19 Range/Units 18:53 18:53 18:53 WBC 10.9 H (3.8-10.6) k/uL RBC 1.80 L (4.30-5.90) m/uL Hgb 5.3 L* (13.0-17.5) gm/dL Hct 17.3 L* (39.0-53.0) % MCV 96.1 (80.0-100.0) fL MCH 29.5 (25.0-35.0) pg MCHC 30.7 L (31.0-37.0) g/dL RDW 21.4 H (11.5-15.5) % Plt Count 237 (150-450) k/uL Neutrophils % 71 % Lymphocytes % 17 % Monocytes % 7 % Eosinophils % 2 % Basophils % 1 % Neutrophils # 7.8 H (1.3-7.7) k/uL Lymphocytes # 1.9 (1.0-4.8) k/uL Monocytes # 0.7 (0-1.0) k/uL Eosinophils # 0.2 (0-0.7) k/uL Basophils # 0.1 (0-0.2) k/uL Hypochromasia Moderate Anisocytosis Moderate Macrocytosis Slight PT (9.0-12.0) sec INR (<1.2) Sodium 144 (137-145) mmol/L Potassium 4.8 (3.5-5.1) mmol/L Chloride 115 H (98-107) mmol/L Carbon Dioxide 18 L (22-30) mmol/L Anion Gap 11 mmol/L BUN 49 H (9-20) mg/dL Creatinine 2.21 H (0.66-1.25) mg/dL Est GFR (CKD-EPI)AfAm 30 (>60 ml/min/1.73 sqM) Est GFR (CKD-EPI)NonAf 26 (>60 ml/min/1.73 sqM) Glucose 82 (74-99) mg/dL Calcium 8.5 (8.4-10.2) mg/dL Total Bilirubin 0.7 (0.2-1.3) mg/dL Conjugated Bilirubin 0.0 (0.0-0.3) mg/dL Unconjugated Bilirubin 0.4 (0.0-1.1) mg/dL Delta Bilirubin 0.3 H (0.0-0.2) mg/dL AST 28 (17-59) U/L ALT 22 (21-72) U/L Alkaline Phosphatase 92 (38-126) U/L Troponin I (0.000-0.034) ng/mL NT-Pro-B Natriuret Pep 21671 pg/mL Total Protein 6.2 L (6.3-8.2) g/dL Albumin 3.1 L (3.5-5.0) g/dL Lipase 69 (23-300) U/L Stool Occult Blood (Negative) Blood Type Blood Type Recheck Bld Type Recheck Status Antibody Screen Crossmatch Spec Expiration Date 07/03/19 07/03/19 07/03/19 Range/Units 18:53 18:53 19:10 WBC (3.8-10.6) k/uL RBC (4.30-5.90) m/uL Hgb (13.0-17.5) gm/dL Hct (39.0-53.0) % MCV (80.0-100.0) fL MCH (25.0-35.0) pg MCHC (31.0-37.0) g/dL RDW (11.5-15.5) % Plt Count (150-450) k/uL Neutrophils % % Lymphocytes % % Monocytes % % Eosinophils % % Basophils % % Neutrophils # (1.3-7.7) k/uL Lymphocytes # (1.0-4.8) k/uL Monocytes # (0-1.0) k/uL Eosinophils # (0-0.7) k/uL Basophils # (0-0.2) k/uL Hypochromasia Anisocytosis Macrocytosis PT 13.2 H (9.0-12.0) sec INR 1.3 H (<1.2) Sodium (137-145) mmol/L Potassium (3.5-5.1) mmol/L Chloride (98-107) mmol/L Carbon Dioxide (22-30) mmol/L Anion Gap mmol/L BUN (9-20) mg/dL Creatinine (0.66-1.25) mg/dL Est GFR (CKD-EPI)AfAm (>60 ml/min/1.73 sqM) Est GFR (CKD-EPI)NonAf (>60 ml/min/1.73 sqM) Glucose (74-99) mg/dL Calcium (8.4-10.2) mg/dL Total Bilirubin (0.2-1.3) mg/dL Conjugated Bilirubin (0.0-0.3) mg/dL Unconjugated Bilirubin (0.0-1.1) mg/dL Delta Bilirubin (0.0-0.2) mg/dL AST (17-59) U/L ALT (21-72) U/L Alkaline Phosphatase (38-126) U/L Troponin I 0.028 (0.000-0.034) ng/mL NT-Pro-B Natriuret Pep pg/mL Total Protein (6.3-8.2) g/dL Albumin (3.5-5.0) g/dL Lipase (23-300) U/L Stool Occult Blood (Negative) Blood Type B Negative Blood Type Recheck B Neg Bld Type Recheck Status No Antibody Screen NEGATIVE Crossmatch See Detail Spec Expiration Date 07/06/2019230907/03/19 Range/Units 19:30 WBC (3.8-10.6) k/uL RBC (4.30-5.90) m/uL Hgb (13.0-17.5) gm/dL Hct (39.0-53.0) % MCV (80.0-100.0) fL MCH (25.0-35.0) pg MCHC (31.0-37.0) g/dL RDW (11.5-15.5) % Plt Count (150-450) k/uL Neutrophils % % Lymphocytes % % Monocytes % % Eosinophils % % Basophils % % Neutrophils # (1.3-7.7) k/uL Lymphocytes # (1.0-4.8) k/uL Monocytes # (0-1.0) k/uL Eosinophils # (0-0.7) k/uL Basophils # (0-0.2) k/uL Hypochromasia Anisocytosis Macrocytosis PT (9.0-12.0) sec INR (<1.2) Sodium (137-145) mmol/L Potassium (3.5-5.1) mmol/L Chloride (98-107) mmol/L Carbon Dioxide (22-30) mmol/L Anion Gap mmol/L BUN (9-20) mg/dL Creatinine (0.66-1.25) mg/dL Est GFR (CKD-EPI)AfAm (>60 ml/min/1.73 sqM) Est GFR (CKD-EPI)NonAf (>60 ml/min/1.73 sqM) Glucose (74-99) mg/dL Calcium (8.4-10.2) mg/dL Total Bilirubin (0.2-1.3) mg/dL Conjugated Bilirubin (0.0-0.3) mg/dL Unconjugated Bilirubin (0.0-1.1) mg/dL Delta Bilirubin (0.0-0.2) mg/dL AST (17-59) U/L ALT (21-72) U/L Alkaline Phosphatase (38-126) U/L Troponin I (0.000-0.034) ng/mL NT-Pro-B Natriuret Pep pg/mL Total Protein (6.3-8.2) g/dL Albumin (3.5-5.0) g/dL Lipase (23-300) U/L Stool Occult Blood Positive (Negative) Blood Type Blood Type Recheck Bld Type Recheck Status Antibody Screen Crossmatch Spec Expiration Date Disposition Clinical Impression: GI bleed, Acute anemia, CHF (congestive heart failure), Pleural effusion Disposition: ADMITTED IP TO [facility] Decision to Admit Reason: Admit from EC Decision Date: 07/03/19 Decision Time: 21:17
[2019-07-03] MEDS ORDERED: CEPHALEXIN 500 MG CAP PO SCH (22:00)
[2019-07-03 23:38] LABS: Glucose,Whole Blood 69 mg/dL (75-99)
[2019-07-04 00:09] LABS: Glucose,Whole Blood 87 mg/dL (75-99)
[2019-07-04] MEDS: SODIUM CHLORIDE 0.9% 1,000 ML IV SCH (02:30)
[2019-07-04 03:15] LABS: Anisocytosis Slight; HCT 25.9 % (39.0-53.0); Hypochromasia Slight; MCH 29.3 pg (25.0-35.0); MCV 91.4 fL (80.0-100.0); Mean Platelet Volume 9.3; Platelet Count 191 k/uL (150-450); Poikilocytosis Slight; RBC 2.83 m/uL (4.30-5.90); RDW 19.8 % (11.5-15.5); WBC 10.5 k/uL (3.8-10.6)
[2019-07-04 03:22] LABS: HGB 8.3 gm/dL (13.0-17.5)
[2019-07-04 05:29] LABS: Glucose,Whole Blood 64 mg/dL (75-99)
[2019-07-04] MEDS ORDERED: DEXTROSE 5% IN WATER 1,000 ML IV SCH (05:45)
[2019-07-04 06:53] LABS: Glucose,Whole Blood 71 mg/dL (75-99)
[2019-07-04 08:54] LABS: Glucose,Whole Blood 76 mg/dL (75-99)
[2019-07-04] MEDS: SUCRALFATE 1 GM TAB PO SCH ×4 (08:54→21:48)
[2019-07-04] MEDS: FERROUS SULFATE 325 MG TAB PO SCH (08:54)
[2019-07-04] MEDS: PANTOPRAZOLE 40 MG/10 ML VIAL IVP SCH ×2 (08:55→21:48)
[2019-07-04] MEDS: ATORVASTATIN 40 MG TAB PO SCH (08:59)
[2019-07-04] MEDS ORDERED: ASPIRIN 81 MG PO SCH (09:00)
[2019-07-04 09:36] LABS: Anisocytosis Moderate; HCT 26.5 % (39.0-53.0); HGB 8.4 gm/dL (13.0-17.5); Hypochromasia Moderate; MCHC 31.9 g/dL (31.0-37.0); MCV 94.1 fL (80.0-100.0); Macrocytosis Slight; Mean Platelet Volume 7.9; Platelet Count 230 k/uL (150-450); Poikilocytosis Slight; RBC 2.81 m/uL (4.30-5.90); RDW 20.3 % (11.5-15.5)
[2019-07-04 09:55] LABS: Calcium 8.7 mg/dL (8.4-10.2); Potassium 4.5 mmol/L (3.5-5.1)
[2019-07-04] MEDS ORDERED: BISACODYL 5 MG TABLET.DR PO STA (10:02)
--- NOTE | 2019-07-04 10:33 | P.CONS ---
History of Present Illness - Reason for Consult Consult date: 07/04/19 GI bleed Requesting physician: Jaguar Casas - Chief Complaint Hematochezia - History of Present Illness 88-year-old male history of renal disease, heart failure, diabetes, hypertension, [place], atrial fibrillation maintained on Eliquis (last dose yesterday) presents with painless bright red blood per rectum bowel movements intermittent for the last month. Family at bedside assisting with history. Additionally patient has had persistent dysphagia with thin liquids and solids for more than a year, patient coughs and chokes upon initiation of swallow no formal work-up. HAs to take his meds with applesauce drink thicker substances. FOBT positive. No history GI bleed EGD or colonoscopy. Admission hemoglobin 5.3. MCV 96. Platelet 237. White count 10.9. BUN 49. Creatinine 2.2. Received 2 units of blood present hemoglobin 8.3. MCV 91. INR 1.3. Weight has been stable. No episodes of hematemesis or melena. Previous 11/04/2018 7.9 and in February 2018 was 10.4. Chest x-ray small pleural effusions no gross heart failure. CT abdomen from January 2018 reported a hiatal hernia mild wall thickening of the distal esophagus and GE junction correlate for esophagitis could not exclude mucosal lesion. No evidence of bowel obstruction at that time. No mentioning of colonic diverticular disease. Review of Systems Constitutional: Denies fever, chills, sweats, weight gain, or loss. Speech is garbled at times. Conversation sounds congested. HEENT: Negative for migraines, blurred vision or loss, earaches, drainage, tinnitus, oral mucosal lesions, persistent dysphagia for a year duration. Cardiac: Negative for chest pain, arrhythmias, or palpitation. History of atrial fibrillation. Respiratory: Negative for shortness of breath, hemoptysis, cough, or sputum production. Gastrointestinal: See HPI for pertinent findings. Genitourinary: Negative for hematuria, urgency, frequency, polyuria, dysuria, or penile discharge. Musculoskeletal: Negative for muscle aches, swelling, arthritis, and arthralgias. Neurologic: Negative for stroke or TIA. Endocrine: Negative for thyroid problems. Skin: Negative for rash or itching. Psychiatric: Negative history for depression and anxiety Past Medical History Past Medical History: Atrial Fibrillation, Heart Failure, Diabetes Mellitus, Hypertension, Myocardial Infarction ([place]), Renal Disease Additional Past Medical History / Comment(s): IDDM type II, RLS, sleep disturbance, "chokes easily", past medical hx documents renal disease stage III, COPD and CHF but pt does not recall these, Last Myocardial Infarction Date:: unknown History of Any Multi-Drug Resistant Organisms: None Reported Past Surgical History: Orthopedic Surgery Additional Past Surgical History / Comment(s): [place] [address] Turpin, bilateral cataract removal and intraocular lens implants. Past Anesthesia/Blood Transfusion Reactions: No Reported Reaction Past Psychological History: No Psychological Hx Reported Additional Psychological History / Comment(s): Pt resides alone. His son lives next door. He uses a walker to ambulate. He no longer drives, family takes him to [employer] and to get groceries. He is retired from [employer]. 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 Smoking Status: Never smoker Past Alcohol Use History: None Reported Additional Past Alcohol Use History / Comment(s): Patient is a lifelong nonsmoker. No illicit drug use, alcohol abuse. He lives at home by himself. His son lives next door and helps with transportation and grocery shopping. Patient is retired from [employer]. He was in the [employer] stationed in the [place]. Past Drug Use History: None Reported - Past Family History Father Family Medical History: COPD Mother Family Medical History: No Reported History Medications and Allergies Home Medications Medication Instructions Recorded Confirmed Type rOPINIRole HCL [Requip] 0.25 mg PO HS 08/27/16 07/03/19 History Apixaban [Eliquis] 2.5 mg PO BID #60 tablet 09/01/16 07/03/19 Rx Aspirin 81 mg PO DAILY chew 09/01/16 07/03/19 Rx Atenolol [Tenormin] 25 mg PO DAILY #30 tab 09/01/16 07/03/19 Rx Atorvastatin [Lipitor] 40 mg PO DAILY tab 09/01/16 07/03/19 Rx Nitroglycerin Sl Tabs [Nitrostat] 0.4 mg SUBLINGUAL Q5M PRN #0 tab 09/01/16 07/03/19 Rx Cholecalciferol [Vitamin D3 (25 1,000 unit PO DAILY 01/24/18 07/03/19 History Mcg = 1000 Iu)] Ferrous Sulfate [Iron (65 MG 325 mg PO DAILY 01/24/18 07/03/19 History Elemental)] Omeprazole [PriLOSEC] 20 mg PO AC-BID #1 cap 01/29/18 07/03/19 Rx Garlic 1 tab PO DAILY 10/27/18 07/03/19 History Insulin Glargine [Lantus] 20 unit SQ BID 10/27/18 07/03/19 History Cephalexin [Keflex] 500 mg PO QID 07/03/19 07/03/19 History Mupirocin 2% Oint [Bactroban 2% 1 applic TOPICAL BID 07/03/19 07/03/19 History Oint] Sucralfate [Carafate] 1 gm PO ACHS 07/03/19 07/03/19 History amLODIPine [Norvasc] 2.5 mg PO DAILY 07/03/19 07/03/19 History Allergies Allergy/AdvReac Type Severity Reaction Status Date / Time No Known Allergies Allergy Verified 07/03/19 20:33 Physical Exam Vitals: Vital Signs Temp Pulse Pulse Resp BP BP Pulse Ox 07/04/19 07:37 97 07/04/19 06:00 89 15 116/67 96 07/04/19 04:00 98.0 F 92 15 119/69 97 07/04/19 02:00 90 14 116/70 98 07/04/19 01:00 98.0 F 92 15 114/51 97 07/04/19 00:00 98.4 F 88 14 113/69 99 07/03/19 23:50 97.6 F 90 15 112/75 99 07/03/19 23:42 97.6 F 89 14 112/75 99 07/03/19 23:20 98.0 F 82 18 113/60 98 07/03/19 23:08 98.2 F 93 16 111/60 100 07/03/19 22:51 97.9 F 98 18 118/59 100 07/03/19 21:26 98.0 F 92 18 99/60 99 07/03/19 20:56 98.0 F 98 18 106/63 100 07/03/19 20:46 98.1 F 86 18 105/58 07/03/19 18:16 97.7 F 100 18 123/80 99 Intake and Output 07/03/19 07/04/19 07/04/19 22:59 06:59 14:59 Intake Total 310 465 75 Balance 310 465 75 Intake: Intake, IV Titration 155 75 Amount Dextrose 5% in Water 1, 75 75 000 ml @ 75 mls/hr IV . [id number] TREY Rx#:[id number] Sodium Chloride 0.9% 1, 80 000 ml @ 20 mls/hr IV . Q24H TREY Rx#:[id number] Blood Product 310 310 Rc As-1 Unit 310 [id number] Rc Cpda-1 Unit 310 [id number] Other: # Voids 1 # Bowel Movements 1 Weight 73.482 kg 84 kg General appearance: The patient is alert, oriented, in no acute distress. Alert oriented 3 speech is somewhat garbled at times speech appears congested. HET: Head is normocephalic and atraumatic. Pupils are equal and reactive. Oropharynx is clear without lesions. Neck: Supple without lymphadenopathy. Trachea midline. Heart: S1 S2. Lungs: No crackles or wheezes are heard. Abdomen: Soft, nontender, nondistended with bowel sounds. No peritoneal signs. No palpable organomegaly or masses. Extremities: Normal skin color and turgor. No cyanosis, rash, ulceration, clubbing, or edema. Radial and pedal pulses are 2/4 bilaterally. Neurological: No focal deficits. Strength and sensation are grossly intact. Results CBC & Chem 7: 07/04/19 09:05 07/04/19 09:05 Labs: Abnormal Lab Results - Last 24 Hours (Table) 07/03/19 07/03/19 07/03/19 Range/Units 18:53 18:53 18:53 WBC 10.9 H (3.8-10.6) k/uL RBC 1.80 L (4.30-5.90) m/uL Hgb 5.3 L* (13.0-17.5) gm/dL Hct 17.3 L* (39.0-53.0) % MCHC 30.7 L (31.0-37.0) g/dL RDW 21.4 H (11.5-15.5) % Neutrophils # 7.8 H (1.3-7.7) k/uL PT 13.2 H (9.0-12.0) sec INR 1.3 H (<1.2) Chloride 115 H (98-107) mmol/L Carbon Dioxide 18 L (22-30) mmol/L BUN 49 H (9-20) mg/dL Creatinine 2.21 H (0.66-1.25) mg/dL POC Glucose (mg/dL) (75-99) mg/dL Delta Bilirubin 0.3 H (0.0-0.2) mg/dL Total Protein 6.2 L (6.3-8.2) g/dL Albumin 3.1 L (3.5-5.0) g/dL Crossmatch 07/03/19 07/03/19 07/04/19 Range/Units 19:10 23:36 03:02 WBC (3.8-10.6) k/uL RBC 2.83 L (4.30-5.90) m/uL Hgb 8.3 L D (13.0-17.5) gm/dL Hct 25.9 L (39.0-53.0) % MCHC (31.0-37.0) g/dL RDW 19.8 H (11.5-15.5) % Neutrophils # (1.3-7.7) k/uL PT (9.0-12.0) sec INR (<1.2) Chloride (98-107) mmol/L Carbon Dioxide (22-30) mmol/L BUN (9-20) mg/dL Creatinine (0.66-1.25) mg/dL POC Glucose (mg/dL) 69 L (75-99) mg/dL Delta Bilirubin (0.0-0.2) mg/dL Total Protein (6.3-8.2) g/dL Albumin (3.5-5.0) g/dL Crossmatch See Detail 07/04/19 07/04/19 Range/Units 05:27 06:41 WBC (3.8-10.6) k/uL RBC (4.30-5.90) m/uL Hgb (13.0-17.5) gm/dL Hct (39.0-53.0) % MCHC (31.0-37.0) g/dL RDW (11.5-15.5) % Neutrophils # (1.3-7.7) k/uL PT (9.0-12.0) sec INR (<1.2) Chloride (98-107) mmol/L Carbon Dioxide (22-30) mmol/L BUN (9-20) mg/dL Creatinine (0.66-1.25) mg/dL POC Glucose (mg/dL) 64 L 71 L (75-99) mg/dL Delta Bilirubin (0.0-0.2) mg/dL Total Protein (6.3-8.2) g/dL Albumin (3.5-5.0) g/dL Crossmatch CT scan - abdomen: report reviewed (2018 report reviewed) Assessment and Plan (1) GI bleed Narrative/Plan: 88-year-old gentleman presents with acute painless hematochezia 1 month duration with underlying atrial fibrillation maintained on anticoagulation, acute blood loss anemia status post transfusion with elevated BUN. Possible upper GI pathology such as peptic ulcer disease possible neoplasm. CT imaging 2018 could not exclude esophageal mucosal lesion. Subsequent development of increased dysphagia over the last year specially within liquids and thicker solids. Other differentials to consider for hematochezia is possible colonic diverticular bleed possible neoplasm possible bleeding AVM. No history of EGD colonoscopy. Current Visit: Yes Status: Acute Code(s): K92.2 - GASTROINTESTINAL HEMORRHAGE, UNSPECIFIED SNOMED Code(s): 58466958 (2) Dysphagia Narrative/Plan: Greater than 1 year duration with thin liquids and solids underlying motility di sorder mucosal lesion cannot be excluded. Current Visit: Yes Status: Acute Code(s): R13.10 - DYSPHAGIA, UNSPECIFIED SNOMED Code(s): 42086438 (3) Hematochezia Current Visit: Yes Status: Acute Code(s): K92.1 - MELENA SNOMED Code(s): 422739975 (4) Acute blood loss anemia Current Visit: Yes Status: Acute Code(s): D62 - ACUTE POSTHEMORRHAGIC ANEMIA SNOMED Code(s): 091952748 (5) Atrial fibrillation Current Visit: Yes Status: Acute Code(s): I48.91 - UNSPECIFIED ATRIAL FIBRILLATION SNOMED Code(s): 22339219 Plan: 1. Family at bedside states patient not be able to tolerate bowel prep secondary to dysphagia. Speech consult recommended. Case was discussed with Dr. Cardozo will proceed with insertion of NG tube today to assist with bowel prep and proceed with EGD colonoscopy tomorrow. Protonix 40 mg twice daily. CBC monitoring. 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 The patient has indicated understanding and acceptance of the risks and procedures discussed. Thank you for this kind referral and the opportunity to participate in the care of your patient. This consultation was discussed with Dr. Cardozo. The impression and plan of care have been directed as dictated.
[2019-07-04 10:52] VITALS: BMI 31.8
[2019-07-04 12:00] LABS: Glucose,Whole Blood 79 mg/dL (75-99)
--- NOTE | 2019-07-04 13:15 | XR ---
EXAMINATION TYPE: XR chest 1V portable DATE OF EXAM: 07/04/2019 COMPARISON: Chest x-ray 07/04/2019 at earlier time HISTORY: NG tube placement TECHNIQUE: Single frontal view of the chest is obtained. FINDINGS: NG tube has been placed in the interval and is coiled within the stomach. No other signifi cant interval change. IMPRESSION: NG tube within the stomach. Otherwise stable findings.
--- NOTE | 2019-07-04 13:16 | XR ---
EXAMINATION TYPE: XR chest 1V portable DATE OF EXAM: 07/04/2019 COMPARISON: Prior chest x-ray 07/03/2019 HISTORY: NG tube placement. TECHNIQUE: Frontal view of the chest is obtained on 2 images. FINDINGS: NG tube is not seen within the chest or abdomen. There are overlying leads and tubing. No other significant interval change. IMPRESSION: NG tube is not seen within the patient.
[2019-07-04] MEDS: amLODIPine 2.5 MG TAB PO SCH (13:32)
[2019-07-04] MEDS: ATENOLOL 25 MG TAB PO SCH (13:32)
[2019-07-04] MEDS: CEPHALEXIN 250 MG CAP PO SCH ×2 (13:32→21:48)
[2019-07-04] MEDS ORDERED: PEG 3350-NA SULF,BICARB,CL/KCL 4,000 ML BOTTLE PO ONE (15:00)
[2019-07-04] MEDS ORDERED: NITROGLYCERIN SL TABS 0.4 MG TAB SUBLINGUAL PRN (15:51)
[2019-07-04 18:18] LABS: Glucose,Whole Blood 96 mg/dL (75-99)
--- NOTE | 2019-07-04 18:48 | HP ---
HISTORY AND PHYSICAL CHIEF COMPLAINT: Weakness and passing blood rectally. HISTORY OF PRESENT ILLNESS: This is another recent admission for this 88-year-old white male. He has been fairly consistently healthy up until the last year or two, when he has had problems with congestive heart failure, poorly controlled type 2 diabetes, general debility and failure to thrive. He is still at home, but his ability to manage is marginal; he gets a lot of help from his family. He was in a residential last year. He started to have maroon-colored stool and became weak and dizzy. He was brought to the emergency room, where he had a hemoglobin of around 5. He was admitted with a GI bleed. He denies any abdominal pain, hematemesis, etc. REVIEW OF SYSTEMS: Review of systems is otherwise unremarkable. He has had no neurologic problems, change in vision or hearing, cough, hemoptysis, chest pain, renal failure, hematuria, etc. Past medical history, family history, and personal and social histories reveal that he is ALLERGIC to STATINS, INCLUDING ZETIA. He is on: 1. Ropinirole 0.25 mg at bedtime. 2. Atenolol 25 mg once a day. 3. Amlodipine 2.5 once a day. 4. Lantus 10 units twice a day. 5. Omeprazole 20 mg once a day. 6. Carafate q.i.d. 7. Atorvastatin 40 at bedtime. 8. Eliquis 2.5 twice a day. 9. Nitrostat p.r.n. 10.Vitamin D. 11.Aspirin 81 mg. Past medical history, family history, and personal and social histories are otherwise unremarkable and noncontributory. He has stage III CKD and a lot of problems with low back pain, which has been chronic over the years. PHYSICAL EXAMINATION: Blood pressure was 95/40 with a pulse of 88. Respirations were 32 and he was afebrile. In general he appeared to be awake and alert, but very pale. Head, ears, eyes, nose, mouth and throat were normal. Neck veins were not distended. Chest demonstrated rales at the bases. Cardiac exam demonstrated atrial fibrillation. Abdomen was soft, nontender without any masses. Bowel sounds present. Extremities were normal. Neurologically he was intact. He is admitted to the hospital with the diagnoses: 1. Upper or lower gastrointestinal bleed; location unknown. 2. History of hypertension. 3. History of type 2 insulin-dependent diabetes mellitus. 4. History of stage III chronic kidney disease. 5. Congestive heart failure. 6. General debility and failure to thrive. 7. Progressive hoarseness. PLAN: 1. Bed rest. 2. IV fluids. 3. Transfuse. 4. 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 MARIPOSA / JOANNE: [id number] /
[2019-07-04] MEDS ORDERED: FUROSEMIDE 10 MG/ML 4 ML VIAL IV STA ×2 (18:49→22:25)
[2019-07-04] MEDS ORDERED: IPRATROPIUM-ALBUTEROL 3 ML NEB INHALATION PRN (18:53)
--- NOTE | 2019-07-04 18:54 | PN ---
PROGRESS NOTE DATE OF SERVICE: 07/04/2019 CHIEF COMPLAINT: GI bleed. HISTORY OF PRESENT ILLNESS: This gentleman is awake and alert. His hemoglobin was transfused up to about 8.5. He is not having any chest pain or abdominal pain. He is being prepped for endoscopies, probably on Sunday. PHYSICAL EXAMINATION: He has occasional rales at the bases. He remains very pale. Cardiac exam is unchanged, with atrial fibrillation. The abdomen is soft and nontender without any masses. IMPRESSION: 1. Most likely upper gastrointestinal bleed. 2. Type 2 diabetes. 3. Congestive heart failure. 4. Blood loss anemia. PLAN: Continue with IV fluids and monitoring hemoglobin, with transfusions as needed. Endoscopy on Sunday. MMODL / IJN: [id number] /
[2019-07-04] MEDS ORDERED: FUROSEMIDE 10 MG/ML 2 ML VIAL ONE (18:57)
[2019-07-04] MEDS: IPRATROPIUM-ALBUTEROL 3 ML NEB INHALATION SCH (19:15)
--- NOTE | 2019-07-04 20:00 | ECHOF ---
Referral Reason:increased troponins, heart function MEASUREMENTS -------- HEIGHT: 162.6 cm WEIGHT: 69.4 kg BP: RVIDd: 3.6 cm (< 3.3) IVSd: 1.3 cm (0.6 - 1.1) LVIDd: 4.1 cm (3.9 - 5.3) LVPWd: 1.3 cm (0.6 - 1.1) IVSs: 1.5 cm LVIDs: 3.3 cm LVPWs: 1.7 cm LA Diam: 3.7 cm (2.7 - 3.8) LAESV Index (A-L): 30.74 ml/m Ao Diam: 3.0 cm (2.0 - 3.7) AV Cusp: 1.5 cm (1.5 - 2.6) LA Diam: 4.3 cm (2.7 - 3.8) MV EXCURSION: 14.577 mm (> 18.000) MV EF SLOPE: 35 mm/s (70 - 150) EPSS: 0.5 cm RAP: 10.00 mmHg RVSP: 50.98 mmHg FINDINGS -------- Atrial fibrillation. This was a technically adequate study. LV size, wall thickness and systolic function are normal, with an EF greater than 55%. The left joan tricular size is normal. The right ventricle is moderately enlarged. The left atrium is mildly dilated. LA is midly dilated 29-33ml/m2. The right atrial size is normal. There is mild aortic valve sclerosis. There is no evidence of aortic regurgitation. Mild mitral annular calcification present. [id number] mitral regurgitation is present. Mild tricuspid regurgitation present. There is moderate pulmonary hypertension. The right ventric ular systolic pressure, as measured by Doppler, is 50.98mmHg. There is no pulmonic regurgitation present. The aortic root size is normal. There is no pericardial effusion. CONCLUSIONS -------- 1. Atrial fibrillation. 2. This was a technically adequate study. 3. LV size, wall thickness and systolic function are normal, with an EF greater than 55%. 4. The left ventricular size is normal. 5. The right ventricle is moderately enlarged. 6. The left atrium is mildly dilated. 7. LA is midly dilated 29-33ml/m2. 8. The right atrial size is normal. 9. There is mild aortic valve sclerosis. 10. Mild mitral annular calcification present. 11. [id number] mitral regurgitation is present. 12. Mild tricuspid regurgitation present. 13. There is moderate pulmonary hypertension. 14. The right ventricular systolic pressure, as measured by Doppler, is 50.98mmHg. 15. There is no pulmonic regurgitation present. 16. The aortic root size is normal. 17. There is no pericardial effusion. CERTIFIED CORPORATE TRAVEL EXECUTIVE: Ara Muro RDCS
[2019-07-04 21:02] LABS: Anisocytosis Slight; Basophils # (A) 0.1 k/uL (0-0.2); Basophils % (A) 1 %; Eosinophils # (A) 0.2 k/uL (0-0.7); Eosinophils % (A) 1 %; HCT 28.2 % (39.0-53.0); Hypochromasia Moderate; Lymphocytes # (A) 1.3 k/uL (1.0-4.8); Lymphocytes % (A) 7 %; MCHC 31.9 g/dL (31.0-37.0); Macrocytosis Slight; Mean Platelet Volume 7.6; Monocytes # (A) 1.2 k/uL (0-1.0); Monocytes % (A) 6 %; Neutrophils # (A) 17.3 k/uL (1.3-7.7); Neutrophils % (A) 85 %; Platelet Count 258 k/uL (150-450); Poikilocytosis Slight; WBC 20.4 k/uL (3.8-10.6)
[2019-07-04 23:48] LABS: Glucose,Whole Blood 132 mg/dL (75-99)
[2019-07-05 05:32] LABS: Calcium 8.6 mg/dL (8.4-10.2); Potassium 4.4 mmol/L (3.5-5.1)
[2019-07-05 05:38] LABS: Anisocytosis Moderate; Basophils # (A) 0.1 k/uL (0-0.2); Basophils % (A) 0 %; Eosinophils % (A) 0 %; HCT 23.8 % (39.0-53.0); HGB 7.7 gm/dL (13.0-17.5); Hypochromasia Slight; Lymphocytes # (A) 1.4 k/uL (1.0-4.8); Lymphocytes % (A) 7 %; MCH 29.9 pg (25.0-35.0); MCHC 32.5 g/dL (31.0-37.0); Macrocytosis Slight; Mean Platelet Volume 7.4; Monocytes # (A) 1.4 k/uL (0-1.0); Monocytes % (A) 7 %; Neutrophils # (A) 16.6 k/uL (1.3-7.7); Neutrophils % (A) 84 %; Platelet Count 245 k/uL (150-450); Poikilocytosis Slight; RBC 2.59 m/uL (4.30-5.90); RDW 20.3 % (11.5-15.5); WBC 19.8 k/uL (3.8-10.6)
[2019-07-05 06:22] LABS: Ovalocytes Present; Polychromasia Present; Target Cells Present
[2019-07-05 06:40] LABS: Glucose,Whole Blood 145 mg/dL (75-99)
[2019-07-05] MEDS: SODIUM CHLORIDE 0.9% 1,000 ML IV SCH (07:12)
[2019-07-05] MEDS: SUCRALFATE 1 GM TAB PO SCH (07:12)
[2019-07-05] MEDS ORDERED: DEXAMETHASONE SOD PHOSPHATE 10 MG/ML 1 ML VIAL IV STA (07:15)
[2019-07-05] MEDS ORDERED: RACEPINEPHRINE 2.25% NEB 0.5 ML NEBU INHALATION STA (07:15)
[2019-07-05] MEDS: IPRATROPIUM-ALBUTEROL 3 ML NEB INHALATION SCH (07:19)
--- NOTE | 2019-07-05 08:22 | P.CRDCN ---
History of Present Illness Consult date: 07/05/19 Chief complaint: GI bleeding History of present illness: This is a pleasant 88-year-old gentleman with a past medical history significant for coronary artery disease, chronic persistent atrial fibrillation on long-term anticoagulation with Eliquis, hypertension, and dyslipidemia, was brought to the hospital by his family because of GI bleeding. We get involved in the care of the patient for abnormal troponin. The first troponin came in to be normal but the second troponin came in to be slightly elevated. The EKG showed atrial fibrillation with diffuse nonspecific ST and T wave abnormalities. The patient did not have any symptoms of chest pain or chest discomfort. The patient was seen by the GI service and the plan is to proceed with endoscopy later on today. The patient currently denies any dizziness or lightheadedness. Hemodynamically he is in atrial fibrillation with slightly uncontrolled heart rate. The hemoglobin drop about 2 g. He is in process of receiving blood. He is on metoprolol. The oral anticoagulation is on hold at this point. He underwent an echocardiogram which revealed normal LV function without significant valvular abnormalities. On physical examination, the patient seems to be hypervolemic. I am going to add Lasix to his current medical regimen. Past Medical History Past Medical History: Atrial Fibrillation, Heart Failure, Diabetes Mellitus, Hypertension, Myocardial Infarction ([place]), Renal Disease Additional Past Medical History / Comment(s): IDDM type II, RLS, sleep disturbance, "chokes easily", past medical hx documents renal disease stage III, COPD and CHF but pt does not recall these, Last Myocardial Infarction Date:: unknown History of Any Multi-Drug Resistant Organisms: None Reported Past Surgical History: Orthopedic Surgery Additional Past Surgical History / Comment(s): [place] [address] Turpin, bilateral cataract removal and intraocular lens implants. Past Anesthesia/Blood Transfusion Reactions: No Reported Reaction Past Psychological History: No Psychological Hx Reported Additional Psychological History / Comment(s): Pt resides alone. His son lives next door. He uses a walker to ambulate. He no longer drives, family takes him to [employer] and to get groceries. He is retired from [employer]. 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 He was in the [employer]/stationed in . Smoking Status: Never smoker Past Alcohol Use History: None Reported Additional Past Alcohol Use History / Comment(s): Patient is a lifelong nonsmoker. No illicit drug use, alcohol abuse. He lives at home by himself. His son lives next door and helps with transportation and grocery shopping. Patient is retired from [employer]. He was in the [employer] stationed in the [place]. Past Drug Use History: None Reported - Past Family History Father Family Medical History: COPD Mother Family Medical History: No Reported History Medications and Allergies Home Medications Medication Instructions Recorded Confirmed Type rOPINIRole HCL [Requip] 0.25 mg PO HS 08/27/16 07/03/19 History Apixaban [Eliquis] 2.5 mg PO BID #60 tablet 09/01/16 07/03/19 Rx Aspirin 81 mg PO DAILY chew 09/01/16 07/03/19 Rx Atenolol [Tenormin] 25 mg PO DAILY #30 tab 09/01/16 07/03/19 Rx Atorvastatin [Lipitor] 40 mg PO DAILY tab 09/01/16 07/03/19 Rx Nitroglycerin Sl Tabs [Nitrostat] 0.4 mg SUBLINGUAL Q5M PRN #0 tab 09/01/16 07/03/19 Rx Cholecalciferol [Vitamin D3 (25 1,000 unit PO DAILY 01/24/18 07/03/19 History Mcg = 1000 Iu)] Ferrous Sulfate [Iron (65 MG 325 mg PO DAILY 01/24/18 07/03/19 History Elemental)] Omeprazole [PriLOSEC] 20 mg PO AC-BID #1 cap 01/29/18 07/03/19 Rx Garlic 1 tab PO DAILY 10/27/18 07/03/19 History Insulin Glargine [Lantus] 20 unit SQ BID 10/27/18 07/03/19 History Cephalexin [Keflex] 500 mg PO QID 07/03/19 07/03/19 History Mupirocin 2% Oint [Bactroban 2% 1 applic TOPICAL BID 07/03/19 07/03/19 History Oint] Sucralfate [Carafate] 1 gm PO ACHS 07/03/19 07/03/19 History amLODIPine [Norvasc] 2.5 mg PO DAILY 07/03/19 07/03/19 History Allergies Allergy/AdvReac Type Severity Reaction Status Date / Time No Known Allergies Allergy Verified 07/03/19 20:33 Physical Exam Vitals: Vital Signs Temp Pulse Resp BP Pulse Ox 07/05/19 07:46 121 H 07/05/19 07:35 106 H 07/05/19 07:22 106 H 98 07/05/19 04:00 104 H 22 127/66 98 07/05/19 02:00 102 H 21 113/65 96 07/05/19 00:00 97.8 F 105 H 19 132/91 100 07/04/19 20:00 100.3 F H 113 H 22 141/64 96 07/04/19 19:27 117 H 07/04/19 19:19 100 07/04/19 19:18 2 L 07/04/19 16:00 98.4 F 100 20 118/65 99 07/04/19 12:00 98.7 F 90 22 120/97 99 Intake and Output 07/04/19 07/05/19 07/05/19 22:59 06:59 14:59 Intake Total 1880 Output Total 701 953 Balance 1179 -953 Intake: IV 200 Sodium Chloride 0.9% 1, 200 000 ml @ 20 mls/hr IV . Q24H [facility] Rx#:[id number] Oral 1680 Output: Urine 700 950 Stool 1 3 Other: Voiding Method Urinal Urinal # Voids 1 # Bowel Movements 2 1 Weight 81.5 kg - Constitutional General appearance: no acute distress - Respiratory Respiratory: bilateral: CTA - Cardiovascular Rhythm: irregularly irregular Heart sounds: normal: S1, S2 Results 07/05/19 05:04 07/05/19 05:04 Cardiac Enzymes 07/04/19 Range/Units 09:05 Troponin I 0.036 H* (0.000-0.034) ng/mL CBC 07/04/19 07/04/19 07/05/19 Range/Units 09:05 20:37 05:04 WBC 11.0 H 20.4 H 19.8 H (3.8-10.6) k/uL RBC 2.81 L 3.00 L 2.59 L (4.30-5.90) m/uL Hgb 8.4 L 9.0 L 7.7 L (13.0-17.5) gm/dL Hct 26.5 L 28.2 L 23.8 L (39.0-53.0) % Plt Count 230 258 245 (150-450) k/uL Comprehensive Metabolic Panel 07/04/19 07/05/19 Range/Units 09:05 05:04 Sodium 145 142 (137-145) mmol/L Potassium 4.5 4.4 (3.5-5.1) mmol/L Chloride 112 H 107 (98-107) mmol/L Carbon Dioxide 22 22 (22-30) mmol/L BUN 51 H 50 H (9-20) mg/dL Creatinine 2.30 H 2.61 H (0.66-1.25) mg/dL Glucose 69 L 144 H (74-99) mg/dL Calcium 8.7 8.6 (8.4-10.2) mg/dL Current Medications Generic Name Dose Route Start Last Admin Trade Name Freq PRN Reason Stop Dose Admin Albuterol/Ipratropium 3 ml 07/04/19 20:00 07/05/19 07:19 Duoneb 0.5 Mg-3 Mg/3 Ml Soln INHALATION 3 ml RT-QID TREY Administration Albuterol/Ipratropium 3 ml 07/04/19 18:53 Duoneb 0.5 Mg-3 Mg/3 Ml Soln INHALATION RT-Q2H PRN Shortness Of Breath Or Wheezing Amlodipine Besylate 2.5 mg 07/04/19 09:00 07/04/19 13:32 Norvasc PO 2.5 mg DAILY TREY Administration Atenolol 25 mg 07/04/19 09:00 07/04/19 13:32 Tenormin PO 25 mg DAILY TREY Administration Atorvastatin Calcium 40 mg 07/04/19 09:00 07/04/19 08:59 Lipitor PO Not Given DAILY TREY Cephalexin 250 mg 07/04/19 09:00 07/04/19 21:48 Keflex PO 250 mg Q12HR TREY Administration Ferrous Sulfate 325 mg 07/04/19 09:00 07/04/19 08:54 Feosol PO 325 mg DAILY TREY Administration Furosemide 40 mg 07/05/19 09:00 Lasix IV Q12HR TREY Sodium Chloride 1,000 mls @ 20 mls/hr 07/04/19 02:30 07/05/19 07:12 Saline 0.9% IV 20 mls/hr .Q24H TREY Administration Nitroglycerin 0.4 mg 07/04/19 15:51 Nitrostat SUBLINGUAL Q5M PRN Chest Pain Pantoprazole Sodium 40 mg 07/03/19 20:00 07/04/19 21:48 Protonix IVP 40 mg BID TREY Administration Ropinirole HCl 0.25 mg 07/04/19 21:00 07/04/19 21:53 Requip PO 0.25 mg HS TREY Administration Sucralfate 1 gm 07/04/19 07:30 07/05/19 07:12 Carafate PO 1 gm ACHS TREY Administration Intake and Output 07/04/19 07/05/19 07/05/19 22:59 06:59 14:59 Intake Total 1880 Output Total 701 953 Balance 1179 -953 Intake: IV 200 Sodium Chloride 0.9% 1, 200 000 ml @ 20 mls/hr IV . Q24H TREY Rx#:[id number] Oral 1680 Output: Urine 700 950 Stool 1 3 Other: Voiding Method Urinal Urinal # Voids 1 # Bowel Movements 2 1 Weight 81.5 kg 07/05/19 05:04 07/05/19 05:04 Assessment and Plan Assessment: Assessment #1 GI bleeding. #2 mildly abnormal troponin #3 history of coronary artery disease #4 chronic persistent atrial fibrillation on oral anticoagulation Plan #1 continue the current dose of metoprolol #2 hold any kind of antiplatelet or anticoagulation #3 the echocardiogram was reviewed #4 we'll adjust the dose of beta hanny if he becomes tachycardic #5 continue conservative medical approach #6 follow-up with the patient
[2019-07-05] MEDS ORDERED: FUROSEMIDE 10 MG/ML 4 ML VIAL IV SCH (09:00)
--- NOTE | 2019-07-05 09:20 | P.GSCN ---
History of Present Illness Consult date: 07/05/19 Reason for Consult: Stridor Requesting physician: Jaguar Casas History of present illness: This patient is an 88-year-old, DO NOT RESUSCITATE status, white male who was admitted with a GI bleed. He has bright red blood coming from the rectum and the patient scheduled for an EGD and colonoscopy this morning. He had an NG tube inserted which made his relatively mild inspiratory stridor worse. The NG tube was removed and the stridor is persistent. History is mostly from the family from his daughter and son and granddaughter. They tell me that he's had some mild inspiratory stridor during the day and more worsening inspiratory stridor at night. The stridor has been present for approximately one year. There is no dysphagia. Family denies hemoptysis. He's had no throat symptoms other than his [place] or stridor area. The patient's on L a request for his atrial fibrillation Review of Systems - Constitutional Reports weakness - EENT Eyes: denies blurred vision, denies bulging eye, denies irritation Ears: bilateral: decreased hearing Ears, nose, mouth and throat: Denies ant. neck pain, Denies nasal congestion - Cardiovascular Denies chest pain - Respiratory Reports as per HPI - Gastrointestinal Reports abdominal pain, Reports BRBPR - Genitourinary Denies discharge - Musculoskeletal Denies fractures - Integumentary Denies acne - Neurological Denies ataxia - Psychiatric Denies anxiety - Endocrine Denies cold intolerance - Hematologic/Lymphatic Reports easy bleeding - Allergic/Immunologic Denies allergic rhinitis, Denies anaphylaxis Past Medical History Past Medical History: Atrial Fibrillation, Heart Failure, Diabetes Mellitus, Hypertension, Myocardial Infarction ([place]), Renal Disease Additional Past Medical History / Comment(s): IDDM type II, RLS, sleep disturbance, "chokes easily", past medical hx documents renal disease stage III, COPD and CHF but pt does not recall these, Last Myocardial Infarction Date:: unknown History of Any Multi-Drug Resistant Organisms: None Reported Past Surgical History: Orthopedic Surgery Additional Past Surgical History / Comment(s): [place] [address] Turpin, bilateral cataract removal and intraocular lens implants. Past Anesthesia/Blood Transfusion Reactions: No Reported Reaction Past Psychological History: No Psychological Hx Reported Additional Psychological History / Comment(s): Pt resides alone. His son lives next door. He uses a walker to ambulate. He no longer drives, family takes him to appts and to get groceries. 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 Smoking Status: Never smoker Past Alcohol Use History: None Reported Additional Past Alcohol Use History / Comment(s): Patient is a lifelong nonsmoker. No illicit drug use, alcohol abuse. He lives at home by himself. His son lives next door and helps with transportation and grocery shopping. Patient is retired from [employer]. He was in the [employer] stationed in the [employer]. Past Drug Use History: None Reported - Past Family History Father Family Medical History: COPD Mother Family Medical History: No Reported History Medications and Allergies Home Medications Medication Instructions Recorded Confirmed Type rOPINIRole HCL [Requip] 0.25 mg PO HS 08/27/16 07/03/19 History Apixaban [Eliquis] 2.5 mg PO BID #60 tablet 09/01/16 07/03/19 Rx Aspirin 81 mg PO DAILY chew 09/01/16 07/03/19 Rx Atenolol [Tenormin] 25 mg PO DAILY #30 tab 09/01/16 07/03/19 Rx Atorvastatin [Lipitor] 40 mg PO DAILY tab 09/01/16 07/03/19 Rx Nitroglycerin Sl Tabs [Nitrostat] 0.4 mg SUBLINGUAL Q5M PRN #0 tab 09/01/16 07/03/19 Rx Cholecalciferol [Vitamin D3 (25 1,000 unit PO DAILY 01/24/18 07/03/19 History Mcg = 1000 Iu)] Ferrous Sulfate [Iron (65 MG 325 mg PO DAILY 01/24/18 07/03/19 History Elemental)] Omeprazole [PriLOSEC] 20 mg PO AC-BID #1 cap 01/29/18 07/03/19 Rx Garlic 1 tab PO DAILY 10/27/18 07/03/19 History Insulin Glargine [Lantus] 20 unit SQ BID 10/27/18 07/03/19 History Cephalexin [Keflex] 500 mg PO QID 07/03/19 07/03/19 History Mupirocin 2% Oint [Bactroban 2% 1 applic TOPICAL BID 07/03/19 07/03/19 History Oint] Sucralfate [Carafate] 1 gm PO ACHS 07/03/19 07/03/19 History amLODIPine [Norvasc] 2.5 mg PO DAILY 07/03/19 07/03/19 History Allergies Allergy/AdvReac Type Severity Reaction Status Date / Time No Known Allergies Allergy Verified 07/03/19 20:33 Surgical - Exam Osteopathic Statement: *. No significant issues noted on an osteopathic structural exam other than those noted in the History and Physical/Consult. Vital Signs Temp Pulse Resp BP Pulse Ox 97.7 F 100 18 123/80 99 07/03/19 18:16 07/03/19 18:16 07/03/19 18:16 07/03/19 18:16 07/03/19 18:16 - General cachectic, chronically ill - Eyes PERRL, normal ocular movement absent: ptosis - ENT Patient is demonstrating inspiratory stridor. Laryngoscopy reveals a right vocal cord paralysis. Head is normocephalic the face is symmetric. There is no tumors or masses of the scalp. Auricles are well-formed canals clear. Nose is patent. Mouth and throat no oral lesions seen. Neck shows no tumors or masses. Voice is hoarse. normal pinna, normal nares, normal mucosa, no hearing loss, no congestion - Neck no masses, trachea midline, no lymphadectomy - Respiratory normal expansion ( ) - Cardiovascular Rhythm: irregularly irregular - Abdomen Abdomen: soft - Neurologic normal sensation - Musculoskeletal normal posture - Psychiatric oriented to time, oriented to person, oriented to place Results - Labs 07/05/19 05:04 07/05/19 05:04 Abnormal Lab Results - Last 24 Hours (Table) 07/03/19 07/04/19 07/04/19 Range/Units 19:10 09:05 09:05 WBC 11.0 H (3.8-10.6) k/uL RBC 2.81 L (4.30-5.90) m/uL Hgb 8.4 L (13.0-17.5) gm/dL Hct 26.5 L (39.0-53.0) % RDW 20.3 H (11.5-15.5) % Neutrophils # (1.3-7.7) k/uL Monocytes # (0-1.0) k/uL Chloride (98-107) mmol/L BUN (9-20) mg/dL Creatinine (0.66-1.25) mg/dL Glucose (74-99) mg/dL POC Glucose (mg/dL) (75-99) mg/dL Troponin I 0.036 H* (0.000-0.034) ng/mL Crossmatch See Detail 07/04/19 07/04/19 07/04/19 Range/Units 09:05 20:37 23:46 WBC 20.4 H (3.8-10.6) k/uL RBC 3.00 L (4.30-5.90) m/uL Hgb 9.0 L (13.0-17.5) gm/dL Hct 28.2 L (39.0-53.0) % RDW 20.0 H (11.5-15.5) % Neutrophils # 17.3 H (1.3-7.7) k/uL Monocytes # 1.2 H (0-1.0) k/uL Chloride 112 H (98-107) mmol/L BUN 51 H (9-20) mg/dL Creatinine 2.30 H (0.66-1.25) mg/dL Glucose 69 L (74-99) mg/dL POC Glucose (mg/dL) 132 H (75-99) mg/dL Troponin I (0.000-0.034) ng/mL Crossmatch 07/05/19 07/05/19 07/05/19 Range/Units 05:04 05:04 06:28 WBC 19.8 H (3.8-10.6) k/uL RBC 2.59 L (4.30-5.90) m/uL Hgb 7.7 L (13.0-17.5) gm/dL Hct 23.8 L (39.0-53.0) % RDW 20.3 H (11.5-15.5) % Neutrophils # 16.6 H (1.3-7.7) k/uL Monocytes # 1.4 H (0-1.0) k/uL Chloride (98-107) mmol/L BUN 50 H (9-20) mg/dL Creatinine 2.61 H (0.66-1.25) mg/dL Glucose 144 H (74-99) mg/dL POC Glucose (mg/dL) 145 H (75-99) mg/dL Troponin I (0.000-0.034) ng/mL Crossmatch Diabetes panel 07/04/19 07/05/19 Range/Units 09:05 05:04 Sodium 145 142 (137-145) mmol/L Potassium 4.5 4.4 (3.5-5.1) mmol/L Chloride 112 H 107 (98-107) mmol/L Carbon Dioxide 22 22 (22-30) mmol/L BUN 51 H 50 H (9-20) mg/dL Creatinine 2.30 H 2.61 H (0.66-1.25) mg/dL Glucose 69 L 144 H (74-99) mg/dL Calcium 8.7 8.6 (8.4-10.2) mg/dL Calcium panel 07/04/19 07/05/19 Range/Units 09:05 05:04 Calcium 8.7 8.6 (8.4-10.2) mg/dL Pituitary panel 07/04/19 07/05/19 Range/Units 09:05 05:04 Sodium 145 142 (137-145) mmol/L Potassium 4.5 4.4 (3.5-5.1) mmol/L Chloride 112 H 107 (98-107) mmol/L Carbon Dioxide 22 22 (22-30) mmol/L BUN 51 H 50 H (9-20) mg/dL Creatinine 2.30 H 2.61 H (0.66-1.25) mg/dL Glucose 69 L 144 H (74-99) mg/dL Calcium 8.7 8.6 (8.4-10.2) mg/dL Adrenal panel 07/04/19 07/05/19 Range/Units 09:05 05:04 Sodium 145 142 (137-145) mmol/L Potassium 4.5 4.4 (3.5-5.1) mmol/L Chloride 112 H 107 (98-107) mmol/L Carbon Dioxide 22 22 (22-30) mmol/L BUN 51 H 50 H (9-20) mg/dL Creatinine 2.30 H 2.61 H (0.66-1.25) mg/dL Glucose 69 L 144 H (74-99) mg/dL Calcium 8.7 8.6 (8.4-10.2) mg/dL Assessment and Plan (1) Inspiratory stridor Current Visit: Yes Status: Acute Code(s): R06.1 - STRIDOR SNOMED Code(s): 26006430 (2) Vocal cord paralysis, unilateral complete Current Visit: Yes Status: Acute Code(s): J38.01 - PARALYSIS OF VOCAL CORDS AND LARYNX, UNILATERAL SNOMED Code(s): 424364672 Plan: The etiology for this patient's vocal cord paralysis is unknown. From history that appears to be present for approximately 1 year. A CAT scan of the neck and chest without contrast is recommended. The patient has an elevated BUN and creatinine and contrast study is not recommended. The patient's a candidate for a tracheotomy that was recommended and expressed to the patient and the family. They are not willing to give consent for this procedure at this time would l wanda to "think about this ". Nursing staff will call me if they wish to proceed forward. I discussed this with Dr. Casas and who are currently caring for this patient. Time with Patient: Greater than 30
--- NOTE | 2019-07-05 09:23 | P.PCN ---
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 History of inspiratory stridor is been present for 1 year which was made worse after an NG tube was inserted. The NG tube was removed and the stridor is persistent. History of very minimal inspiratory stridor during the day but worsening at night. Has been relatively stable for 1 year. Patient is DO NOT RESUSCITATE. Operative Findings: Right vocal cord paralysis is noted in the median position unilateral incomplete. Vocal Cords did not appear to have any tumors or masses present on the visible portion. Description of Procedure: And the NF type GP nasopharyngoscope was inserted into the patient's right naris following the floor the nose into the nasopharynx. The nasopharynx did not demonstrate any tumors or masses. The posterior aspect of the soft palate was unremarkable. Oropharynx was clear base of tongue was clear epiglottis was clear. Vocal cord examination demonstrates a right vocal cord paralysis with no evidence of any tumors or masses.
[2019-07-05] MEDS ORDERED: ONDANSETRON 4 MG/2 ML VIAL IVP PRN (09:47)
[2019-07-05] MEDS ORDERED: MORPHINE SULFATE 10 MG/ML 1ML VIAL IVP ONE (09:47)
[2019-07-05] MEDS ORDERED: ATROPINE OPHTH SOLN 1% 5ML BTL SUBLINGUAL PRN (09:47)
--- NOTE | 2019-07-05 10:28 | CONS ---
CONSULTATION This is a pulmonary/critical care consultation. REASON FOR CONSULTATION: Impending respiratory failure, GI bleed, stridor. HISTORY OF PRESENT ILLNESS: This is an 88-year-old male who sees Dr. Casas as a primary. He presents to the emergency room on July 03 with generalized weakness and GI bleed. Apparently, the patient has been unable to move about at home. Unable to tell the ER physician or anybody else how long he has been having bright red bleeding from the rectum. He also apparently has been complaining of lower extremity weakness and edema. He apparently had been on an antibiotic for cellulitis. Here in the ICU, apparently an NG tube was placed and it created a situation in which the patient with chronic stridor developed worsening stridor. The NG tube was subsequently removed. He was to have an EGD and colonoscopy by Dr. Cardozo but he would need to be intubated prior to that procedure being done and the family and he refuses intubation. He was seen by Dr. Fischer from [facility] who did a scope on him and found that he had right vocal cord paralysis. He offered the patient a possible tracheostomy. The patient is having a GI bleed because he is on Eliquis and in part, the patient is having any GI bleed because he is on Eliquis for atrial fibrillation. In addition, he has a history of myocardial infarction, cellulitis, hypertension, chronic kidney disease, chronic stridor, dysphagia, and heart failure. His echocardiogram showed pulmonary hypertension and some valvular heart disease. His ejection fraction was reasonable. Currently, he is on 3 L by nasal cannula. Saturations are 98%. His IV is 0.9 at 10 mL an hour. He has received 2 units of PRBCs. His hemoglobin this morning is 7.7. He initially came in with a hemoglobin of 5.3. His stridor is audible. He was given Vaponefrin and Decadron, which did not help the stridor at all. HOME MEDICATIONS: Include Requip, vitamin D3, iron tablets, garlic, insulin, Keflex, Bactroban ointment, Carafate, Norvasc, Eliquis, aspirin, Tenormin, Lipitor, nitroglycerin tablets, and Prilosec. ALLERGIES: Denied. PAST MEDICAL HISTORY: As mentioned include atrial fibrillation, CHF, diabetes, hypertension, myocardial infarction, chronic kidney disease, restless legs syndrome, dysphagia, cellulitis, as well as chronic stridor. SURGICAL HISTORY: Includes a history of hip replacement in 2006 as well as bilateral cataract removal and intraocular lens implants. SOCIAL HISTORY: Negative for tobacco, alcohol or illicit drug use. FAMILY HISTORY: Positive for a father with COPD. REVIEW OF SYSTEMS: CONSTITUTIONAL: Weakness. NEUROLOGIC: Negative. HEENT negative. CARDIOVASCULAR: Heart failure. PULMONARY: Shortness of breath. GI: Gastrointestinal bleed. negative. RHEUMATOLOGIC negative. IMMUNOLOGIC negative. ENDOCRINOLOGIC negative. DERMATOLOGIC negative. PHYSICAL EXAMINATION: VITAL SIGNS: Current vital signs are reviewed. His temperature is 97.8. Heart rate is 122, respiratory rate about 35 breaths per minute. He has audible stridor. Blood pressure 116/72, mean 86 and saturations are mid to high 90s on 3 L. GENERAL: He appears to be in respiratory distress. He is quite tachypneic and dyspneic. His respiratory rate mid 30s. He has audible wheezing. He has audible stridor. HEENT examination is grossly unremarkable. Mucous membranes are dry. NECK: Supple. There is stridor noted on auscultation. Neck veins are flat. No adenopathy or thyromegaly. CARDIOVASCULAR examination reveals irregular rhythm and rate. He is tachycardic. He is in atrial fibrillation. Heart rate about 125 beats per minute. S1, S2 normal. No distinct murmur noted. LUNGS reveal coarse rhonchi. Lung sounds are difficult to hear because of the patient's significant stridor. Breath sounds equal bilaterally. ABDOMEN: Soft. No masses. EXTREMITIES are intact. No edema. SKIN is without rash. NEUROLOGIC: Examination is difficult to assess given his current state. He does move all 4 extremities. He does mumble a few words. LAB DATA: Reviewed. White count 19.8, hemoglobin 7.7, hematocrit 23.8, platelet count 345,000 sodium 142, potassium 4.4, chloride 107, CO2 22, anion gap 13. BUN and creatinine were 50 and 2.61. His N-terminal proBNP was 17953. Repeat is 11,500. His admission hemoglobin was 5.3. His troponins were 0.028 and 0.036. Fluids were positive for occult blood. Chest x-ray shows cardiomegaly, bilateral pleural effusions and cephalization. A pattern that is consistent with heart failure. EKG shows atrial fibrillation. 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 Current medications are reviewed. He is currently on amlodipine, Tenormin, Lipitor Keflex, iron, Lasix, updrafts, sublingual nitroglycerin, Protonix, Requip, a 0.9 IV, and Carafate. ASSESSMENT: 1. Impending respiratory failure, secondary to acute on chronic stridor with a right vocal cord paralysis, according to ENT. 2. Gastrointestinal bleed with profound anemia, status post 2 units of PRBCs. 3. Chronic atrial fibrillation with RVR. 4. History of myocardial infarction. 5. History of cellulitis. 6. Valvular heart disease. 7. Hypertension. 8. Stage 3 chronic kidney disease. 9. Chronic dysphagia. 10.Diastolic heart failure, acute on chronic. PLAN: I had a long discussion with the daughter, son and granddaughter. He has stated many times in the past he would not want anything in the way of life support resuscitation. They also feel that at this point given his age and multiple medical problems and current condition, that they would not want anything aggressively being done. They agree to comfort measures. I think that is reasonable given his age and current situation. I think tracheostomy would be excessive and I think it would be unsafe to try an EGD or colonoscopy without intubating the patient, something he clearly does not want. I asked all the family members because I want a consensus. They all agree. They are happy with oxygen therapy, scopolamine patch, morphine for comfort, etc. I told him that we would do nothing to hasten Mr. Mccarty's but try to make the process comfortable for him. We will make sure that the primary notes as well as a specialist. Additional recommendations and suggestions are forthcoming. MMODL / IJN: [id number] /
--- NOTE | 2019-07-05 16:42 | PN ---
PROGRESS NOTE CHIEF COMPLAINT: GI bleed. HISTORY OF PRESENT ILLNESS: This gentleman has had difficulty during the night. He seems to be having more and more difficulty breathing. I was called that he was having a lot of "wheezing." He was administered Lasix, which seemed to help slightly. Later in the night, a nurse called that she thought this might be more stridorous. He has been having progressive hoarseness over the last several months. It was planned that he would go down for endoscopies, but he is having more difficulty breathing. ENT saw him and he was found to have a paralyzed right vocal cord. The cause of this is not clear. It was thought that he might be able to be taken to the operating room, but then started bleeding again and dropped his hemoglobin. PHYSICAL EXAMINATION: He remains pale and he is a little bit more lethargic. He has stridorous respiration due to the paralyzed cord. His chest is fairly clear bilaterally and cardiac exam demonstrates tachycardia. Abdomen is soft. IMPRESSION: 1. Upper gastrointestinal hemorrhage. 2. Respiratory difficulty. 3. Paralyzed right vocal cord. 4. Congestive heart failure. 5. Elevated troponin. 6. Diabetes mellitus. PLAN: The case is discussed with the family and the possibility of a trach was brought up. It was felt that he could not go to the operating room for scopes if his airway was not protected. The patient is a NO CODE, and decision currently is to hold off on endoscopy and to provide him with comfort measures only. MMTEXL / BLAINEN: [id number] /
[2019-07-05] MEDS ORDERED: SCOPOLAMINE 1.5MG/72HR PATCH TRANSDERM SCH (21:00)
[2019-07-05 21:20] VITALS: TEMP 98.6
[2019-07-05] MEDS: MORPHINE SULFATE (100 MG/2 ML) 100 MG in SODIUM CHLORIDE 0.9% 100 ML IV SCH (22:52)
[2019-07-06] MEDS: ATENOLOL 25 MG TAB PO SCH (03:24)
[2019-07-06] MEDS: amLODIPine 2.5 MG TAB PO SCH (03:24)
[2019-07-06] MEDS: ATORVASTATIN 40 MG TAB PO SCH (03:24)
[2019-07-06] MEDS: CEPHALEXIN 250 MG CAP PO SCH (03:25)
[2019-07-06] MEDS: PANTOPRAZOLE 40 MG/10 ML VIAL IVP SCH (03:25)
[2019-07-06] MEDS: FERROUS SULFATE 325 MG TAB PO SCH (03:25)
[2019-07-06] MEDS: SODIUM CHLORIDE 0.9% 1,000 ML IV SCH (03:31)
[2019-07-06 03:37] VITALS: BP 137/80; PULSE 101; RESP 28
[2019-07-06] MEDS: MORPHINE SULFATE (100 MG/2 ML) 100 MG in SODIUM CHLORIDE 0.9% 100 ML IV SCH (10:17)
--- NOTE | 2019-07-06 15:49 | PN ---
PROGRESS NOTE CHIEF COMPLAINT: GI bleed, paralysis of the right vocal cord and coma. HISTORY OF PRESENT ILLNESS: This gentleman is on terminal watch with family. There has apparently been no further bleeding since yesterday. He is being sedated and he is not going to be treated any further and will just be kept comfortable. REVIEW OF SYSTEMS: Unobtainable. PHYSICAL EXAMINATION: He is comatose. He is pale and slightly dehydrated. There are occasional rhonchi bilaterally and cardiac exam is normal. Abdomen is soft, without masses. IMPRESSION: 1. Terminal illness with gastrointestinal bleed, source unknown. 2. Blood loss anemia. 3. Problems in the right vocal cord, etiology unknown. 4. Diabetes mellitus. PLAN: Comfort care only with the family at the bedside. MMODL / IJN: [id number] /
--- NOTE | 2019-07-07 14:57 | DS ---
DISCHARGE SUMMARY CHIEF COMPLAINT: GI bleed and blood-loss anemia. HISTORY OF PRESENT ILLNESS AND PHYSICAL EXAM: Details of this man's history and physical can be found in the initial workup. LABORATORY STUDIES: While he was in a hospital he had laboratory studies, details of which can be found in the laboratory section of his chart. COURSE IN HOSPITAL: After admission, he was placed on bedrest and started on intravenous fluids in ICU and he was seen by Intensive Medicine and Gastroenterology. The plan originally was that he would undergo endoscopy looking for the source of bleeding. However, on the morning that this study was planned, he started to bleed significantly again and dropped his blood pressure and hemoglobin. He also has had progressive hoarseness and he was asked to be seen by ENT who identified a right vocal cord paralysis without any lesions being seen on the cord. He became extremely unstable and the decision was made with all the family members in attendance, that he was too risky to take him to the operating room. At that time, he knew the family exercised what the patient had intended and that was to be kept comfortable and not be resuscitated. He was moved to a regular room and hospice was brought in. He on the morning of June,. FINAL DIAGNOSES: 1. Gastrointestinal hemorrhage, site unknown. 2. Blood loss anemia. 3. Paralysis of right vocal cord, etiology unknown. 4. Congestive heart failure. 5. Diabetes mellitus. OPERATIONS: None. CONSULTATIONS: Gastroenterology and Intensive Medicine. He is not improved, he . MMODL / BLAINEN: [id number] /
== END 2019-07-06 14:31 | disposition hospice, inpatient (51) | DRG 377 ==
LOC: EC 18:08 → 2SICU 21:20 → 3NMEDONC 07-06 03:22
PROVIDERS: ADMIT Family Medicine; ATTEND Family Medicine
PROC: 30233N1 Transfusion of Nonautologous Red Blood Cells into Peripheral Vein, Percutaneous Approach (ICD-10-PCS; 2019-07-03)
PROC: 0D9670Z Drainage of Stomach with Drainage Device, Via Natural or Artificial Opening (ICD-10-PCS; 2019-07-04)
PROC: 0CJS8ZZ Inspection of Larynx, Via Natural or Artificial Opening Endoscopic (ICD-10-PCS; principal; 2019-07-05)
DX: K92.1 Melena (principal); I50.33 Acute on chronic diastolic (congestive) heart failure; L03.90 Cellulitis, unspecified; D62 Acute posthemorrhagic anemia; I13.0 Hypertensive heart and chronic kidney disease with heart failure and stage 1 through stage 4 chronic kidney disease, or unspecified chronic kidney disease; I38 Endocarditis, valve unspecified; I48.19 Other persistent atrial fibrillation; J38.01 Paralysis of vocal cords and larynx, unilateral; J44.9 Chronic obstructive pulmonary disease, unspecified; K44.9 Diaphragmatic hernia without obstruction or gangrene; N18.3 Chronic kidney disease, stage 3 (moderate); R13.10 Dysphagia, unspecified; R62.7 Adult failure to thrive; Z66 Do not resuscitate; Z51.5 Encounter for palliative care; E11.22 Type 2 diabetes mellitus with diabetic chronic kidney disease; E11.65 Type 2 diabetes mellitus with hyperglycemia; E78.5 Hyperlipidemia, unspecified; G25.81 Restless legs syndrome; I25.2 Old myocardial infarction; T45.515A Adverse effect of anticoagulants, initial encounter; M54.9 Dorsalgia, unspecified; G89.29 Other chronic pain; I25.10 Atherosclerotic heart disease of native coronary artery without angina pectoris; R79.89 Other specified abnormal findings of blood chemistry; I27.20 Pulmonary hypertension, unspecified; Z79.01 Long term (current) use of anticoagulants; Z79.4 Long term (current) use of insulin; Z79.82 Long term (current) use of aspirin; Z79.899 Other long term (current) drug therapy; Z82.5 Family history of asthma and other chronic lower respiratory diseases; Z98.42 Cataract extraction status, left eye; Z98.41 Cataract extraction status, right eye; Z96.1 Presence of intraocular lens; Z96.649 Presence of unspecified artificial hip joint; Z60.2 Problems related to living alone
CPT/HCPCS: 36415; 36430; 71045; 71046; 80048; 80076; 82272; 83690; 83880; 84484; 85025; 85027; 85610; 86850; 86900; 86901; 86920; 93005; 93306; 94640; 96374; 96375; 99285

== ENCOUNTER 2019-07-06 13:41 | Inpatient (IN) | payer MEDICAID ==
[2019-07-06] MEDS ORDERED: ONDANSETRON 4 MG/2 ML VIAL IVP PRN (13:47)
[2019-07-06] MEDS ORDERED: LORazepam 2 MG/ML INJ IV PRN (13:47)
[2019-07-06] MEDS ORDERED: ACETAMINOPHEN SUPPOSITORY 650 MG SUPP RECTAL PRN (13:47)
[2019-07-06] MEDS ORDERED: ATROPINE OPHTH SOLN 1% 5ML BTL SUBLINGUAL PRN (13:47)
[2019-07-06] MEDS ORDERED: SODIUM CHLORIDE 0.9% 1,000 ML IV SCH (14:00)
[2019-07-06] MEDS ORDERED: SCOPOLAMINE 1.5MG/72HR PATCH TRANSDERM SCH (14:00)
[2019-07-06] MEDS ORDERED: MORPHINE SULFATE (100 MG/2 ML) 100 MG in SODIUM CHLORIDE 0.9% 100 ML IV SCH (14:00)
[2019-07-06 15:02] VITALS: BMI 30.8
[2019-07-06 23:35] VITALS: RESP 24
== END 2019-07-07 06:15 | disposition expired | DRG 951 ==
LOC: 3NMEDONC 14:50
PROVIDERS: ADMIT Family Medicine; ATTEND Family Medicine
DX: Z51.5 Encounter for palliative care (principal); K92.2 Gastrointestinal hemorrhage, unspecified; I13.0 Hypertensive heart and chronic kidney disease with heart failure and stage 1 through stage 4 chronic kidney disease, or unspecified chronic kidney disease; E11.22 Type 2 diabetes mellitus with diabetic chronic kidney disease; I50.9 Heart failure, unspecified; I48.91 Unspecified atrial fibrillation; J38.01 Paralysis of vocal cords and larynx, unilateral; D50.0 Iron deficiency anemia secondary to blood loss (chronic); N18.3 Chronic kidney disease, stage 3 (moderate); R62.7 Adult failure to thrive; Z68.30 Body mass index [BMI] 30.0-30.9, adult; G89.29 Other chronic pain; M54.5 Low back pain; Z88.8 Allergy status to other drugs, medicaments and biological substances